=== PATIENT | male | born 1985 | race Caucasian/White ===

== ENCOUNTER 2020-01-01 15:37 | Emergency (ER) | payer SELFPAY ==
[2020-01-01 15:44] VITALS: BP 128/85; PULSE 90; RESP 18; TEMP 36.8; O2SAT 97; BMI 29.8
--- NOTE | 2020-01-01 15:49 | XR_ITS ---
WS: [id number] EXAM: LEFT SHOULDER: 3 VIEWS DATE OF EXAMINATION: 01/01/2020, 1407 hours COMPARISON: Left shoulder examination from 05/09/2016 HISTORY: 34 years old with shoulder pain. FINDINGS: The glenohumeral and AC joint are both normal in appearance. No fracture, lytic or blastic process se en. No soft tissue abnormality noted. Left subclavian double lead pacer noted. XR/XR shoulder LT min 2V* [id number] IMPRESSION: No acute abnormality.
--- NOTE | 2020-01-01 16:06 | W.ED.EXTPRO ---
HPI - Extremity Problem General: Chief complaint: Extremity Problem,Nontraumatic Stated complaint: left shoulder/arm pain Time Seen by Provider: 01/01/20 15:48 History of Present Illness: HPI Narrative: 34-year-old male presents emergency room clinic right shoulder pain that began suddenly while he was driving felt a popping sensation he has previously had several surgeries to that shoulder including labral revision. No distinctive trauma or event recently. No falls. This occurred while he was driving not doing any heavy lifting. MD Complaint: joint pain Onset (ago): minute(s) Pain Consistency: constant Location: left and upper extremity Quality: aching and sharp Radiation: distal Relieving factors: nothing Exacerbating factors: nothing Associated symptoms: Reports arthralgias; Deny chest pain, fever(s), myalgias, rash or short of breath Context: immobilization, recent surgery/procedure, history of DVT, history of peripheral vascular disease, recent illness and history of gout Review of Systems Const: Denies: fever(s) ENMT: Denies: throat pain, ear or mastoid pain, nasal discharge or nasal congestion Card: Denies: chest pain Resp: Denies: dyspnea, productive cough or non-productive cough GI: Denies: abdominal pain, nausea, vomiting, hematemesis, coffee ground emesis, diarrhea, constipation, bloating, hematochezia or melena : Denies: flank pain, dysuria, urinary frequency or urinary urgency Skin/Breast: Denies: rash PFSH ED PFSH: Medical History (Updated 01/01/20 @ 16:33 by Fermín Betancourt DO) Chronic left shoulder pain Physical Exam Const: COMMON NORMALS: no acute distress GENERAL APPEARANCE: cooperative and comfortable ORIENTATION/CONSCIOUSNESS: Yes awake, Yes oriented to person, Yes oriented to place and Yes oriented to time HENMT: COMMON NORMALS: normocephalic, atraumatic and hearing grossly normal bilaterally HEAD & SCALP: normocephalic and atraumatic Eye: COMMON NORMALS: Equal, round and reactive pupils present, EOMs intact bilaterally, conjunctivae normal and no scleral icterus CONJUNCTIVA: Yes conjunctivae normal PUPIL: Yes Equal, round and reactive pupils present Neck/C-Spine: COMMON NORMALS: no JVD Resp: COMMON NORMALS: normal respiratory effort, No retractions, No use of accessory muscles and clear to auscultation bilaterally AUSCULTATION: clear to auscultation bilaterally Cardio: COMMON NORMALS: no JVD, regular rate, regular rhythm and No murmurs present (Cardio) RATE: regular rate RHYTHM: regular rhythm GI: COMMON NORMALS: Soft to palpation and No hepatosplenomegaly present AUSCULTATION: Yes normoactive bowel sounds PALPATION: Yes Soft to palpation, No Tenderness to palpation present (GI), No Guarding due to palpation present (GI) and Yes No hepatosplenomegaly present Extremity: COMMON NORMALS: normal to inspection, capillary refill normal, no clubbing, cyanosis or edema, no calf tenderness and no pedal edema NARRATIVE EXTREMITY EXAM: Moderate tenderness palpation across the left shoulder no deformity the clavicle there is a pacemaker in the infraclavicular space. Pending x-ray did not attempt any range of motion initially. On exam there is no evidence of dislocation. Neuro: SENSORIUM/ORIENTATION: Yes oriented to person, Yes oriented to place and Yes oriented to time Skin: COMMON NORMALS: no rashes or lesions noted GENERAL SKIN EXAM: no rashes or lesions noted Course Vital Signs: Vital signs: Vital Signs Temperature 98.3 F 01/01/20 15:44 Pulse Rate 90 01/01/20 15:44 Respiratory Rate 18 01/01/20 15:44 Blood Pressure 128/85 01/01/20 15:44 Pulse Oximetry 97 01/01/20 15:44 MDM - Extremity (Nontraumatic) MDM Narrative: Medical decision making narrative: Very unremarkable. Will discharge home with anti-inflammatories follow-up with orthopedics for more definitive imaging and further evaluation. Discharge Plan Discharge Patient Disposition: Home Clinical Impression: Shoulder pain, left Condition: Stable Prescriptions: New diclofenac sodium 75 mg tablet,delayed release (DR/EC) 75 mg PO Q12H PRN (Reason: pain) Qty: 20 RF: 0 Discharge Orders: Discharge Order (Routine); Ordered 01/01/20 Ordered By: Fermín Betancourt Activity Restrictions/Additional Instructions: Limit use of the right shoulder. Case management will call for referral to orthopedics Coding Level of Care Code ED Associate Account Executive for Chg Fwd Exam Comprehensive
[2020-01-01] MEDS: ketorolac 30 mg/mL INJ 60 MG IM (16:47)
--- NOTE | 2020-01-02 09:27 | DCPLANNER ---
advertising operations manager had message to schedule a follow up appointment for patient with ortho. advertising operations manager called the ortho clinic, spoke with Neelima, gave clinic patients information. advertising operations manager was told that patients information would be printed and reviewed. Clinic will call patient with appointment information.
--- NOTE | 2020-01-08 08:16 | DCPLANNER ---
Patient has a follow up appointment scheduled for Monday, January 27, [address] at 8:[address] Ricci. Clinic will call patient with appointment information.
--- NOTE | 2020-02-06 07:59 | DCPLANNER ---
Patient had a follow up appointment scheduled for 01.27.20 with ortho - patient did attend appointment.
== END 2020-01-01 17:24 | disposition home or self-care (01) ==
PROVIDERS: Emergency Provider Family Medicine
DX: M25.512 Pain in left shoulder (principal)
CPT/HCPCS: 12345; 73030; 96372; 99282; 99283; J1885

== ENCOUNTER 2020-01-24 20:11 | Emergency (ER) | payer SELFPAY ==
[2020-01-24 20:16] VITALS: BP 131/94; PULSE 103; RESP 17; TEMP 36.7; O2SAT 98; BMI 28.7
--- NOTE | 2020-01-24 20:29 | CTR_ITS ---
PROCEDURE INFORMATION: Exam: CT Head Without Contrast Exam date and time: 01/24/2020 8:30 PM Age: 34 years old Clinical indication: Speech disturbance and weakness, facial; Patient HX: Slurred speech, lt sided weakness; Additional info: Symptoms of acute stroke TECHNIQUE: Imaging protocol: Computed tomography of the head without contrast. Radiation optimization: All CT scans at this facility use at least one of these dose optimization techniques: automated exposure control; mA and/or kV adjustment per patient size (includes targeted exams where dose is matched to clinical indication); or iterative reconstruction. Other contrast: none; COMPARISON: CT head wo con* [id number] 11/14/2016 11:30 PM RADIATION DOSE METRICS: Total DLP (mGy-cm): 880.11 FINDINGS: Brain: Normal. No hemorrhage or CT evidence of acute infarction is seen. No mass effect. Cerebral ventricles: No ventriculomegaly. Bones/joints: Unremarkable. No acute fracture. Paranasal sinuses: Visualized sinuses are unremarkable. No fluid levels. Mastoid air cells: Visualized mastoid air cells are well aerated. Soft tissues: Unremarkable. CT/CT head wo con* [id number] IMPRESSION: No acute intracranial abnormality. Radiation Dose CTDIVOL = (mGy): DLP = 880.11 (mGy-cm)
--- NOTE | 2020-01-24 20:29 | ECG_ITS ---
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 Measurements Intervals [place] Rate: 87 P: 58 FL: 163 QRS: 66 QRSD: 84 T: 56 QT: 361 QTc: 435 Interpretive Statements SINUS RHYTHM Compared to ECG 11/14/2016 23:00:08 Atrial-paced complex(es) or rhythm no longer present Electronically Signed On 01-26-2020 18:21:49 CDT by Jane Crook M.D. [email or web address] [id number]
--- NOTE | 2020-01-24 20:29 | XRR_ITS ---
PROCEDURE INFORMATION: Exam: XR Chest, 1 View Exam date and time: 01/24/2020 8:55 PM Age: 34 years old Clinical indication: Prior surgery; Surgery date: 6+ months; Surgery type: Pacemaker; Patient HX: No chest complaints, weakness; Additional info: Stroke TECHNIQUE: Imaging protocol: XR of the chest Views: 1 view. COMPARISON: No relevant prior studies available. FINDINGS: Lungs: An azygos fissure is seen in the right lung apex. The lungs are clear. Pleural space: Unremarkable. No pleural effusion. No pneumothorax. Heart/Mediastinum: A pacemaker is present in the left anterior chest wall with its leads projecting in the regions of the right atrium and ventricle. Bones/joints: Unremarkable. XR/XR chest 1V portable [id number] IMPRESSION: No acute cardiopulmonary abnormality.
--- NOTE | 2020-01-24 20:29 | CTR_ITS ---
PROCEDURE INFORMATION: Exam: CT Angiography Head With Contrast Exam date and time: 01/24/2020 8:30 PM Age: 34 years old Clinical indication: Speech disturbance and weakness; Slurred speech; Additional info: Stroke TECHNIQUE: Imaging protocol: Computed tomography angiography of the head with intravenous contrast. 3D rendering (Not supervised by radiologist): MIP and/or 3D reconstructed images were created by the technologist. Radiation optimization: All CT scans at this facility use at least one of these dose optimization techniques: automated exposure control; mA and/or kV adjustment per patient size (includes targeted exams where dose is matched to clinical indication); or iterative reconstruction. Contrast material: OMNI 350; Contrast volume: 95 ml; Contrast route: INTRAVENOUS (IV); COMPARISON: CT head wo con* [id number] 01/24/2020 8:35 PM RADIATION DOSE METRICS: Total DLP (mGy-cm): 2235.97 FINDINGS: ANTERIOR CIRCULATION: Right internal carotid artery: Unremarkable. Intracranial segment is patent with no significant stenosis. No aneurysm. Right middle cerebral artery: Unremarkable. No occlusion or significant stenosis. No aneurysm. Right anterior cerebral artery: Unremarkable. No occlusion or significant stenosis. No aneurysm. Left internal carotid artery: Unremarkable. Intracranial segment is patent with no significant stenosis. No aneurysm. Left middle cerebral artery: Unremarkable. No occlusion or significant stenosis. No aneurysm. Left anterior cerebral artery: Unremarkable. No occlusion or significant stenosis. No aneurysm. POSTERIOR CIRCULATION: Right vertebral artery: Unremarkable. No occlusion or significant stenosis. No aneurysm. Left vertebral artery: Unremarkable. No occlusion or significant stenosis. No aneurysm. Basilar artery: Unremarkable. No occlusion or significant stenosis. No aneurysm. Right posterior cerebral artery: Unremarkable. No occlusion or significant stenosis. No aneurysm. Left posterior cerebral artery: Unremarkable. No occlusion or significant stenosis. No aneurysm. Brain: No mass, hemorrhage or CT evidence of acute infarction is seen. IMPRESSION: Patent intracranial arteries. PROCEDURE INFORMATION: Exam: CT Angiography Neck With Contrast Exam date and time: 01/24/2020 8:30 PM Age: 34 years old Clinical indication: Speech disturbance and weakness; Slurred speech; Additional info: Stroke TECHNIQUE: Imaging protocol: Computed tomography angiography of the neck with intravenous contrast. 3D rendering (Not supervised by radiologist): MIP and/or 3D reconstructed images were created by the technologist. Radiation optimization: All CT scans at this facility use at least one of these dose optimization techniques: automated exposure control; mA and/or kV adjustment per patient size (includes targeted exams where dose is matched to clinical indication); or iterative reconstruction. Contrast material: OMNI 350; Contrast volume: 95 ml; Contrast route: INTRAVENOUS (IV); COMPARISON: none available. RADIATION DOSE METRICS: Total DLP (mGy-cm): 2235.97 FINDINGS: Right common carotid artery: No stenosis. No dissection or occlusion. Right internal carotid artery: No stenosis of the extracranial segment. No dissection or occlusion. Right external carotid artery: No occlusion or stenosis of the origin. Right vertebral artery: No stenosis. No dissection or occlusion. Left common carotid artery: No stenosis. No dissection or occlusion. Left internal carotid artery: No stenosis of the extracranial segment. No dissection or occlusion. Left external carotid artery: No occlusion or stenosis of the origin. Left vertebral artery: No stenosis. No dissection or occlusion. CT/CT angio headneck* [id number] IMPRESSION: Patent neck carotid and vertebral arteries. Radiation Dose CTDIVOL = (mGy): DLP = 2235.97~2235.97 (mGy-cm)
--- NOTE | 2020-01-24 20:33 | W.ED.NEUROSD ---
HPI - Neuro Symptoms/Deficit General: Chief Complaint: Neuro Symptoms/Deficit Stated Complaint: POSS STROKE - STROKE HX Time Seen by Provider: 01/24/20 20:25 Source: patient and family Limitations: no limitations History of Present Illness: HPI Narrative: Chidi is a nice 34-year-old male who comes in stating that he came home from work feeling normal. He states that he got up to go to the bathroom and then does not remember what happened in the bathroom. His states when he got home at 730 he was in his normal state of health and acted normally. At 745 when she found him in the bathroom he was slumped over against the wall unresponsive and diaphoretic. She was able to arouse him and found his left side to be weak and his speech to be slurred. Because of this she presented here to the ER as the patient has had a stroke in the past according to them. Associated symptoms: Deny chest pain, diaphoresis, malaise, nausea, syncope or vomiting Review of Systems Const: Denies: fever(s), chills, body aches, fatigue, malaise or diaphoresis Eyes: Denies: change in vision, blurry vision, photophobia, eye discomfort, eye discharge, eye redness or yellow eyes ENMT: Denies: throat pain, odynophagia, hoarseness, swelling of lips/tongue, ear or mastoid pain, ear discharge, change in hearing or nasal discharge Card: Denies: chest pain, palpitations, irregular heart rhythm, edema, lightheadedness, syncope, pre-syncope, dyspnea on exertion or orthopnea Resp: Denies: dyspnea, productive cough, non-productive cough, wheezing, hemoptysis or chest congestion GI: Denies: abdominal pain, nausea, vomiting, hematemesis, coffee ground emesis, heartburn, diarrhea, constipation, GI cramping, hematochezia or melena : Denies: flank pain, dysuria, urinary frequency, urinary urgency or hematuria Musc: Denies: neck pain, back pain, extremity pain, extremity swelling, joint pain, joint swelling, joint redness, joint warmth or joint stiffness Skin/Breast: Denies: rash, pruritus, erythema, skin pain or skin tenderness Neuro: Reports: other (See HPI) Rodriguez/Lymph: Denies: easy bruising, easy bleeding, petechiae, purpura or enlarged lymph nodes All/Imm: Denies: urticaria, throat swelling, tongue swelling, facial swelling or acute wheezing PFSH ED PFSH: Medical History (Updated 01/24/20 @ 22:29 by Marianne Isaac) Chronic left shoulder pain NIH stroke score NIHSS: Level Of Consciousness - 1a: 0 Level Of Consciousness Questions - 1b: Both Correct Level Of Consciousness Commands - 1c: Both Correct Best Gaze - 2: Normal Visual Cheung - 3: No Visual Loss Facial Palsy - 4: Partial Paralysis Motor Arm Right - 5: No Drift Motor Arm Left - 5: Drift Motor Leg Right - 6: No Drift Motor Leg Left - 6: Effort Against Denio Limb Ataxia - 7: Absent Sensory - 8: Mild To Moderate Loss Best Language - 9: No Aphasia Dysarthia - 10: Mild/Moderate Dysarthia Extinction And Inattention - 11: 0 Score: Total Score: 7 Physical Exam Const: COMMON NORMALS: no acute distress, patient oriented x3, no limitations and alert GENERAL APPEARANCE: cooperative HENMT: COMMON NORMALS: normocephalic, atraumatic, external ears normal, EAC's normal and Normal external nose present HEAD & SCALP: normal to inspection, normocephalic and atraumatic FACE & SINUS: normal facial exam and face symmetric NOSE: Normal external nose present and Normal nares present EXTERNAL EAR: Yes external ears normal EXTERNAL AUDITORY CANAL: EAC's normal MOUTH: Normal oral and palatal mucosa present, lip normal and tongue normal Eye: COMMON NORMALS: Equal, round and reactive pupils present and conjunctivae normal GENERAL EYE: appearance normal, both eyes and all related structures ALIGNMENT: Yes alignment normal PERIORBITAL: periorbital findings normal EYELID: eyelids normal CONJUNCTIVA: Yes conjunctivae normal SCLERA: sclerae normal PUPIL: Yes Equal, round and reactive pupils present Neck/C-Spine: COMMON NORMALS: full ROM, no lymphadenopathy, supple, no meningeal signs and no JVD GENERAL: Yes normal visual inspection and Yes trachea midline Chest: COMMONS NORMALS: normal inspection of the chest and normal palpation of entire chest wall Resp: COMMON NORMALS: normal respiratory effort, No retractions, No use of accessory muscles and clear to auscultation bilaterally EFFORT & INSPECTION: Yes able to speak in complete sentences and Yes symmetric chest movement AUSCULTATION: clear to auscultation bilaterally, no crackles, no rales, no rhonchi and no wheezes Cardio: COMMON NORMALS: no JVD, regular rate, regular rhythm, S1 normal heart sound present and S2 normal heart sound present RATE: regular rate RHYTHM: regular rhythm HEART SOUNDS: S1 normal heart sound present, S2 normal heart sound present, no click, no gallops, no murmurs and no rubs GI: COMMON NORMALS: Soft to palpation and No hepatosplenomegaly present PALPATION: Yes Soft to palpation, No Tenderness to palpation present (GI), No Guarding due to palpation present (GI), No Rigid due to palpation, Yes No hepatosplenomegaly present, No Hernia present, No Palpable mass present and No Pulsatile mass present : COMMON NORMALS: Yes no CVA tenderness BLADDER/KIDNEY EXAM: Yes no CVA tenderness Back/Pelvis: COMMON NORMALS: no CVA tenderness, thoracic and lumbar spine normal to inspection, no thoracic nor lumbar tenderness and thoraco-lumbar ROM normal Extremity: COMMON NORMALS: normal to inspection, full ROM, capillary refill normal, no joint enlargement, no clubbing, cyanosis or edema and no calf tenderness Neuro: CARRI COMA SCALE: document GCS findings Carri coma scale eye opening: Spontaneous [place] coma scale verbal response: Orientated [place] coma scale motor response: Obey commands [place] coma scale total score: 15 COMMON NORMALS: patient oriented x3 SENSORIUM/ORIENTATION: Yes alert MENINGEAL SIGNS: Yes no meningeal signs Psych: COMMON NORMALS: mental status grossly normal, Normal thought process present, cooperative, normal affect, speech normal and activity/motor behavior normal SPEECH: Yes normal speech THOUGHT PROCESS: Normal thought process present Skin: COMMON NORMALS: no rashes or lesions noted, turgor normal, no jaundice, no petechiae and no mottling GENERAL SKIN EXAM: no rashes or lesions noted and turgor normal Course ED course: 2044 -Case reviewed by phone with Dr. Anderson. He is going to try to get on the tele-neurology system to evaluate the patient but he is currently having difficulty. He states he will contact me when available. 2112 -case again reviewed with Dr. Anderson, he sees no sign of acute hemorrhage or on the CTA a sign of a embolic interventional clot. He is unable to do a tele-neurology consult over the iPad due to technical difficulties on their side of the system. He states of radiology officially reads noncontrast as normal then TPA can be administered. He agrees accept the patient in transfer for post TPA care. 2129 -the patient has made a market improvement of the symptoms. A repeat NIH stroke scale performed by me is 0. I contacted Dr. Anderson who agrees to withhold TPA and states the patient can be admitted here for TIA work-up. I have presented the patient with this option but now he states he wants to go home. He is adamant that he wants to leave. I have been warned him about the possibility of a stuttering stroke and that if his symptoms return he can be watched here in the hospital and received TPA but he refuses. Patient is set on going home despite my warnings and is refusing to stay. Patient has the capacity to make this decision and shows no sign of impairment. The patient was warned but he was welcomed to return. Vital Signs: Vital signs: Vital Signs Temperature 98.0 F 01/24/20 20:16 Pulse Rate 77 01/24/20 22:30 Respiratory Rate 17 01/24/20 22:30 Blood Pressure 118/75 01/24/20 22:30 Pulse Oximetry 98 01/24/20 22:30 MDM - Neuro Symptoms/Deficit MDM Narrative: Medical decision making narrative: Patient came in with strokelike symptoms but resolved prior to TPA administration. A note from [address] Good for the stroke the patient state he had previously technically diagnosed as conversion disorder. I still wanted to treat the patient as a real TIA and offered and recommended him in the hospital but he refused. Patient was placed on aspirin. He did understand he was welcome to return. Lab Data: Labs: Lab Results 01/24/20 01/24/20 01/24/20 Range/Units 20:38 20:38 20:38 WBC 10.5 H (4.0-10.0) 10^3/ uL RBC 5.35 H (4.1-5.3) 10^6/u L Hgb 16.0 (11.7-16.6) g/dL Hct 47.1 (42.0-52.0) % MCV 88.0 (80-94) fL MCH 29.9 (28.0-34.0) pg MCHC 34.0 (30.0-36.0) g/dL RDW 12.2 (12.1-15.1) % Plt Count 271 (130-400) 10^3/c mm MPV 10.4 (7.4-10.4) fL Neut % (Auto) 57.6 % Lymph % (Auto) 32.2 % Clarke % (Auto) 7.6 % Eos % (Auto) 2.1 % Baso % (Auto) 0.4 % Neut # (Auto) 6.03 (1.8-7.7) 10^3/u L Lymph # (Auto) 3.4 (0.8-4.8) 10^3/u L Clarke # (Auto) 0.8 (0.2-0.9) 10^3/u L Eos # (Auto) 0.2 (0.0-0.8) 10^3/u L Baso # (Auto) 0.0 (0.0-0.1) 10^3/u L Nucleated RBC % (a uto) 0 % Nucleated RBCs # 0.0 /100WBC PT 13.60 (12.1-14.9) SECO NDS INR 1.01 (0.8-1.2) APTT 28.3 (23.9-36.7) SECO NDS Sodium 138 (136-145) mmol/L Potassium 3.8 (3.5-5.1) mmol/L Chloride 102 (98-107) mmol/L Carbon Dioxide 24 (22-29) mmol/L Anion Gap 15.8 (5-19) BUN 12 (6-20) mg/dL Creatinine 1.2 (0.7-1.2) mg/dL GFR Calculation 70.2 L (90-130) mL/min Glucose 96 (65-115) mg/dL POC Glucose (70-110) mg/dL Calculated Osmolal ity 286 (285-295) mOsm/k g Calcium 9.5 (8.5-10.5) mg/dL Total Bilirubin 0.2 (0.15-1.2) mg/dL AST 17 (0-40) U/L ALT 29 (0-41) U/L Alkaline Phosphata se 80 (40-130) IU/L Total Protein 7.6 (6.6-8.7) g/dL Albumin 4.3 (3.5-5.2) g/dL Globulin 3.3 (1.3-4.6) g/dL SARS-CoV-2 Ag (Rap id) (Negative) 01/24/20 01/24/20 Range/Units 20:42 21:18 WBC (4.0-10.0) 10^3/ uL RBC (4.1-5.3) 10^6/u L Hgb (11.7-16.6) g/dL Hct (42.0-52.0) % MCV (80-94) fL MCH (28.0-34.0) pg MCHC (30.0-36.0) g/dL RDW (12.1-15.1) % Plt Count (130-400) 10^3/c mm MPV (7.4-10.4) fL Neut % (Auto) % Lymph % (Auto) % Clarke % (Auto) % Eos % (Auto) % Baso % (Auto) % Neut # (Auto) (1.8-7.7) 10^3/u L Lymph # (Auto) (0.8-4.8) 10^3/u L Clarke # (Auto) (0.2-0.9) 10^3/u L Eos # (Auto) (0.0-0.8) 10^3/u L Baso # (Auto) (0.0-0.1) 10^3/u L Nucleated RBC % (a uto) % Nucleated RBCs # /100WBC PT (12.1-14.9) SECO NDS INR (0.8-1.2) APTT (23.9-36.7) SECO NDS Sodium (136-145) mmol/L Potassium (3.5-5.1) mmol/L Chloride (98-107) mmol/L Carbon Dioxide (22-29) mmol/L Anion Gap (5-19) BUN (6-20) mg/dL Creatinine (0.7-1.2) mg/dL GFR Calculation (90-130) mL/min Glucose (65-115) mg/dL POC Glucose 99 (70-110) mg/dL Calculated Osmolal ity (285-295) mOsm/k g Calcium (8.5-10.5) mg/dL Total Bilirubin (0.15-1.2) mg/dL AST (0-40) U/L ALT (0-41) U/L Alkaline Phosphata se (40-130) IU/L Total Protein (6.6-8.7) g/dL Albumin (3.5-5.2) g/dL Globulin (1.3-4.6) g/dL SARS-CoV-2 Ag (Rap id) Negative (Negative) Imaging Data^: CT Head: Radiologist's impression: [address] [address] [address] Scan Report Signed Patient: Adrián Nick Unit #: [id number] : 1985 Age/Sex: 34 / M ADM Date: 01/24/20 Loc: ER Room/Bed: Attending Dr: Ordering Provider/Ordering MD: Galilea Win MD Date of Service: 01/24/20 Procedure(s): CT head wo con* [id number] Accession Number(s): [id number] Report Number: [id number] PROCEDURE INFORMATION: Exam: CT Head Without Contrast Exam date and time: 01/24/2020 8:30 PM Age: 34 years old Clinical indication: Speech disturbance and weakness, facial; Patient HX: Slurred speech, lt sided weakness; Additional info: Symptoms of acute stroke TECHNIQUE: Imaging protocol: Computed tomography of the head without contrast. Radiation optimization: All CT scans at this facility use at least one of these dose optimization techniques: automated exposure control; mA and/or kV adjustment per patient size (includes targeted exams where dose is matched to clinical indication); or iterative reconstruction. Other contrast: none; COMPARISON: CT head wo con* [id number] 11/14/2016 11:30 PM RADIATION DOSE METRICS: Total DLP (mGy-cm): 880.11 FINDINGS: Brain: Normal. No hemorrhage or CT evidence of acute infarction is seen. No mass effect. Cerebral ventricles: No ventriculomegaly. Bones/joints: Unremarkable. No acute fracture. Paranasal sinuses: Visualized sinuses are unremarkable. No fluid levels. Mastoid air cells: Visualized mastoid air cells are well aerated. Soft tissues: Unremarkable. CT/CT head wo con* [id number] IMPRESSION: No acute intracranial abnormality. Radiation Dose CTDIVOL = (mGy): DLP = 880.11 (mGy-cm) Dictated By: Ha Santamaria MD Signed By: Ha Santamaria MD Signed Date/Time: 01/24/202119 DD/ 17 CTA Head and Neck: Radiologist's impression: [facility] [address] [place] [address] CT Scan Report Signed Patient: Adrián Nick Unit #: [id number] : 1985 Age/Sex: 34 / M ADM Date: 01/24/20 Loc: ER Room/Bed: Attending Dr: Ordering Provider/Ordering MD: Galilea Win MD Date of Service: 01/24/20 Procedure(s): CT angio headneck* [id number] Accession Number(s): [id number] Report Number: [id number] PROCEDURE INFORMATION: Exam: CT Angiography Head With Contrast Exam date and time: 01/24/2020 8:30 PM Age: 34 years old Clinical indication: Speech disturbance and weakness; Slurred speech; Additional info: Stroke TECHNIQUE: Imaging protocol: Computed tomography angiography of the head with intravenous contrast. 3D rendering (Not supervised by radiologist): MIP and/or 3D reconstructed images were created by the technologist. Radiation optimization: All CT scans at this facility use at least one of these dose optimization techniques: automated exposure control; mA and/or kV adjustment per patient size (includes targeted exams where dose is matched to clinical indication); or iterative reconstruction. Contrast material: OMNI 350; Contrast volume: 95 ml; Contrast route: INTRAVENOUS (IV); COMPARISON: CT head wo con* [id number] 01/24/2020 8:35 PM RADIATION DOSE METRICS: Total DLP (mGy-cm): 2235.97 FINDINGS: ANTERIOR CIRCULATION: Right internal carotid artery: Unremarkable. Intracranial segment is patent with no significant stenosis. No aneurysm. Right middle cerebral artery: Unremarkable. No occlusion or significant stenosis. No aneurysm. Right anterior cerebral artery: Unremarkable. No occlusion or significant stenosis. No aneurysm. Left internal carotid artery: Unremarkable. Intracranial segment is patent with no significant stenosis. No aneurysm. Left middle cerebral artery: Unremarkable. No occlusion or significant stenosis. No aneurysm. Left anterior cerebral artery: Unremarkable. No occlusion or significant stenosis. No aneurysm. POSTERIOR CIRCULATION: Right vertebral artery: Unremarkable. No occlusion or significant stenosis. No aneurysm. Left vertebral artery: Unremarkable. No occlusion or significant stenosis. No aneurysm. Basilar artery: Unremarkable. No occlusion or significant stenosis. No aneurysm. Right posterior cerebral artery: Unremarkable. No occlusion or significant stenosis. No aneurysm. Left posterior cerebral artery: Unremarkable. No occlusion or significant stenosis. No aneurysm. Brain: No mass, hemorrhage or CT evidence of acute infarction is seen. IMPRESSION: Patent intracranial arteries. PROCEDURE INFORMATION: Exam: CT Angiography Neck With Contrast Exam date and time: 01/24/2020 8:30 PM Age: 34 years old Clinical indication: Speech disturbance and weakness; Slurred speech; Additional info: Stroke TECHNIQUE: Imaging protocol: Computed tomography angiography of the neck with intravenous contrast. 3D rendering (Not supervised by radiologist): MIP and/or 3D reconstructed images were created by the technologist. Radiation optimization: All CT scans at this facility use at least one of these dose optimization techniques: automated exposure control; mA and/or kV adjustment per patient size (includes targeted exams where dose is matched to clinical indication); or iterative reconstruction. Contrast material: OMNI 350; Contrast volume: 95 ml; Contrast route: INTRAVENOUS (IV); COMPARISON: none available. RADIATION DOSE METRICS: Total DLP (mGy-cm): 2235.97 FINDINGS: Right common carotid artery: No stenosis. No dissection or occlusion. Right internal carotid artery: No stenosis of the extracranial segment. No dissection or occlusion. Right external carotid artery: No occlusion or stenosis of the origin. Right vertebral artery: No stenosis. No dissection or occlusion. Left common carotid artery: No stenosis. No dissection or occlusion. Left internal carotid artery: No stenosis of the extracranial segment. No dissection or occlusion. Left external carotid artery: No occlusion or stenosis of the origin. Left vertebral artery: No stenosis. No dissection or occlusion. CT/CT angio headneck* [id number] IMPRESSION: Patent neck carotid and vertebral arteries. Radiation Dose CTDIVOL = (mGy): DLP = 2235.97 2235.97 (mGy-cm) Dictated By: Ha Santamaria MD Signed By: Ha Santamaria MD Signed Date/Time: 01/24/202123 DD/ 21 EKG Data^: EKG 1: Attestation: I personally reviewed and interpreted this EKG as follows: EKG interpretation date: 01/24/20 EKG interpretation time: 21:15 Interpretation: Normal sinus rhythm at 89 beats a minute, no acute ST or T wave changes. Critical Care Time Critical Care Time: Critical Care Time: Yes Total Critical Care Time: 30 Attestation: Critical care time consisted of one-on-one care for stroke evaluation. Critical care time consisted of reviewing radiologic studies by myself, review of laboratory studies, consultation with specialist by phone and arranging for possible transport. Discharge Plan Discharge Patient Disposition: Left Against Medical Advice Clinical Impression: Transient cerebral ischemia Qualifiers: Transient cerebral ischemia type: unspecified Qualified Code(s): G45.9 - Transient cerebral ischemic attack, unspecified Condition: Stable Prescriptions: [place] Aspirin 325 mg tablet 325 mg PO DAILY Qty: 30 RF: 0 No Action diclofenac sodium 75 mg tablet,delayed release (DR/EC) 75 mg PO Q12H PRN (Reason: pain) Qty: 20 RF: 0 Discharge Orders: Discharge Order (Routine); Ordered 01/24/20 Ordered By: Marianne Isaac Referrals: Angie Upton MD [Physician] - 1-3 days Discharge Diet: Advance as tolerated Discharge Activity: Increase activity as tolerated Patient Instructions: Transient Ischemic Attack (ED) Activity Restrictions/Additional Instructions: You're leaving AGAINST MEDICAL ADVICE and are at risk for or severe permanent disability by doing so. You are more than welcome to return at any time for recheck and for further evaluation and care suture change you change your mind. Be certain to follow-up with Dr. Upton as soon as possible. Take a 325 mg aspirin daily. You are more than welcome to return to the ER if your symptoms return or you change your mind. Stand Alone Forms: Against Medical Advice Discharge Date/Time: 01/24/20 22:45 Coding Level of Care Code ED Aircraft Communicator for Chg Fwd Exam Comprehensive
[2020-01-24 20:45] LABS: Glucose Point of Care 99 mg/dL (70-110)
[2020-01-24 20:55] LABS: Basophils % 0.4 %; Eosinophils # 0.2 10^3/uL (0.0-0.8); Eosinophils % 2.1 %; Hematocrit 47.1 % (42.0-52.0); Lymphocytes # 3.4 10^3/uL (0.8-4.8); Lymphocytes % 32.2 %; Mean Corpuscular Hemoglobin 29.9 pg (28.0-34.0); Mean Platelet Volume 10.4 fL (7.4-10.4); Monocytes # 0.8 10^3/uL (0.2-0.9); Monocytes % 7.6 %; Neutrophils # 6.03 10^3/uL (1.8-7.7); Neutrophils % 57.6 %; Nucleated Red Blood Cells % 0 %; Platelet Count 271 10^3/cmm (130-400); Red Blood Count 5.35 10^6/uL (4.1-5.3); Red Cell Distribution Width 12.2 % (12.1-15.1); White Blood Count 10.5 10^3/uL (4.0-10.0)
[2020-01-24 20:58] LABS: INR 1.01 (0.8-1.2); Partial Thromboplastin Time 28.3 SECONDS (23.9-36.7)
[2020-01-24 21:07] LABS: Alanine Aminotransferase 29 U/L (0-41); Albumin Level 4.3 g/dL (3.5-5.2); Alkaline Phosphatase 80 IU/L (40-130); Aspartate Amino Transferase 17 U/L (0-40); Blood Urea Nitrogen 12 mg/dL (6-20); Calcium 9.5 mg/dL (8.5-10.5); Carbon Dioxide 24 mmol/L (22-29); Chloride 102 mmol/L (98-107); Globulin 3.3 g/dL (1.3-4.6); Glomerular Filtration Rate 70.2 mL/min (90-130); Glucose 96 mg/dL (65-115); Osmolality Calculated 286 mOsm/kg (285-295); Sodium 138 mmol/L (136-145); Total Bilirubin 0.2 mg/dL (0.15-1.2); Total Protein 7.6 g/dL (6.6-8.7)
[2020-01-24 21:09] LABS: Anion Gap 15.8 (5-19); Potassium 3.8 mmol/L (3.5-5.1)
[2020-01-24 21:15] VITALS: BP 117/82; PULSE 92; RESP 18; O2SAT 96
--- NOTE | 2020-01-24 21:15 | ECG_ITS ---
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 Measurements Intervals [place] Rate: 89 P: 51 WV: 154 QRS: 64 QRSD: 79 T: 54 QT: 345 QTc: 422 Interpretive Statements SINUS RHYTHM Compared to ECG 01/24/2020 21:03:12 No significant changes Electronically Signed On 01-25-2020 18:11:39 CDT by Jane Crook M.D. [id number]
[2020-01-24 21:30] VITALS: BP 136/96; PULSE 90; RESP 27; O2SAT 99
[2020-01-24 21:39] LABS: SARS Covid-2 Antigen Negative (Negative)
[2020-01-24 21:48] VITALS: BP 127/82; PULSE 83; RESP 17; O2SAT 98
[2020-01-24 22:30] VITALS: BP 118/75; PULSE 77; RESP 17; O2SAT 98
== END 2020-01-24 22:45 | disposition left against medical advice (07) ==
PROVIDERS: Emergency Medicine; Emergency Provider Emergency Medicine
DX: G45.9 Transient cerebral ischemic attack, unspecified (principal); Z53.21 Procedure and treatment not carried out due to patient leaving prior to being seen by health care provider
CPT/HCPCS: 12345; 36416; 70450; 70496; 70498; 71045; 80053; 82962; 85025; 85610; 85730; 87426; 93005; 96374; 99283; 99284; Q9967

== ENCOUNTER → 2020-01-27 08:52 | Outpatient (BNVA) | payer SELFPAY | PROVIDERS: Referring Provider Family Medicine; Visit Provider Specialist | DX: M19.012 Primary osteoarthritis, left shoulder (principal); M25.512 Pain in left shoulder | CPT/HCPCS: 73030 ==

== ENCOUNTER → 2020-02-10 10:44 | Outpatient (BNVA) | payer SELFPAY | PROVIDERS: Visit Provider Nurse Practitioner | DX: R56.9 Unspecified convulsions (principal); F17.210 Nicotine dependence, cigarettes, uncomplicated | CPT/HCPCS: 99204 ==

== ENCOUNTER → 2020-02-25 07:54 | Outpatient (BNVA) | payer SELFPAY | PROVIDERS: Referring Provider Nurse Practitioner; Visit Provider Specialist | DX: R56.9 Unspecified convulsions (principal) | CPT/HCPCS: 95816 ==

== ENCOUNTER 2020-03-13 18:45 | Emergency (ER) | payer SELFPAY ==
[2020-03-13 18:47] VITALS: BP 122/84; PULSE 80; RESP 18; TEMP 36.5; O2SAT 99; BMI 32.0
[2020-03-13 18:53] VITALS: BP 122/84; PULSE 83; RESP 18; O2SAT 100
--- NOTE | 2020-03-13 19:00 | W.ED.BACK ---
HPI - Back Pain/Injury General: Chief Complaint: Back Pain/Injury Stated Complaint: severe back pain Time Seen by Provider: 03/13/20 18:51 Source: patient Mode of arrival: ambulatory Limitations: no limitations History of Present Illness: HPI Narrative: Patient comes in today for complaints of mid to low back pain worsening over the last 2 months. Patient does have a chronic history of back pain with bulging disc. Patient has a primary care and sees neurology at times. Patient today was on a road back from [facility] and had worsening discomfort with radiation of pain down the right leg. Patient appears well. Patient appears in no acute distress. Patient does appear in moderate pain. MD elicited complaint: back pain Review of Systems General: Reports: 10 or more systems reviewed and unremarkable except in HPI and below Musc: Reports: back pain PFSH ED PFSH: Medical History (Updated 03/13/20 @ 20:17 by KRYSTYNA Willoughby) Cardiac defibrillator in place Chronic left shoulder pain Pacemaker Seizure Surgical History (Updated 03/10/20 @ 08:00 by Edin Booth MD) Hx of cholecystectomy Hx of shoulder surgery Family History (Updated 03/10/20 @ 07:28 by Gianna Mason LPN) Other CAD (coronary artery disease) COPD (chronic obstructive pulmonary disease) Cancer Diabetes Seizure Stroke Social History (Updated 03/10/20 @ 07:30 by Gianna Mason LPN) Smoking and tobacco status: current every day smoker cigarettes Packs smoked per day: 0.5 Alcohol intake: current Alcohol intake frequency: holidays/special occasions only Household members: spouse and children Marital status: Current occupational status: disabled Physical Exam Const: COMMON NORMALS: no acute distress and patient oriented x3 GENERAL APPEARANCE: cooperative HENMT: COMMON NORMALS: normocephalic and Normal external nose present HEAD & SCALP: normal to inspection and normocephalic NOSE: Normal external nose present MOUTH: Normal oral and palatal mucosa present THROAT: posterior oropharynx normal Eye: GENERAL EYE: appearance normal, both eyes and all related structures Neck/C-Spine: COMMON NORMALS: full ROM Lymph: LYMPHATIC: no lymphadenopathy noted Chest: COMMONS NORMALS: normal inspection of the chest Resp: COMMON NORMALS: normal respiratory effort EFFORT & INSPECTION: Yes able to speak in complete sentences Cardio: COMMON NORMALS: regular rate and regular rhythm RATE: regular rate RHYTHM: regular rhythm GI: COMMON NORMALS: non-tender Back/Pelvis: COMMON NORMALS: thoracic and lumbar spine normal to inspection OTHER: Patient has some tenderness in the vertebral area of the lower thoracic upper lumbar area. No obvious step-off is noted on the exam. Patient has normal leg lift. Extremity: COMMON NORMALS: normal to inspection Neuro: COMMON NORMALS: patient oriented x3 and moves all extremities Psych: COMMON NORMALS: mental status grossly normal and cooperative Skin: COMMON NORMALS: no rashes or lesions noted GENERAL SKIN EXAM: no rashes or lesions noted Course Vital Signs: Vital signs: Vital Signs Temperature 97.7 F 03/13/20 18:47 Pulse Rate 83 03/13/20 18:53 Respiratory Rate 18 03/13/20 18:53 Blood Pressure 122/84 03/13/20 18:53 Pulse Oximetry 100 03/13/20 18:53 MDM - Back Pain/Injury MDM Narrative: Medical decision making narrative: Patient comes in today for complaints of mid to low back pain. Patient reports worsening discomfort for his back for the last 2 months. Patient appears mildly unwell. Patient appears in moderate pain. Respirations were even lungs are clear to auscultation. Skin is warm and dry. Abdomen soft nontender. Leg lift test was negative. Differential diagnosis includes but not limited to intervertebral disc disease, facet arthropathy, muscle strain. CT scan of the thoracic and lumbar area noted some minor disc bulging in the low lumbar area. Remainder of the CT scan noted no significant abnormalities except for some mild degenerative changes. No foraminal stenosis was noted throughout the exam. Reviewed the exam with patient with recommendations for follow-up and treatment. Patient was given 1 hydrocodone tablet in the emergency room with improvement of pain. Patient was recommended to follow-up with primary care for further management and referral as needed. Patient reported understanding agreed to plan. Discharge Plan Discharge Patient Disposition: Home Clinical Impression: Thoracic back pain Qualifiers: Chronicity: unspecified Back pain laterality: right Qualified Code(s): M54.6 - Pain in thoracic spine Condition: Stable Prescriptions: New naproxen 500 mg tablet 500 mg PO BID Qty: 20 RF: 0 tizanidine 4 mg tablet 4 mg PO Q8H PRN (Reason: muscle spasticity) Qty: 20 RF: 0 hydrocodone-acetaminophen 5-325 mg tablet 1 tab PO TID PRN (Reason: breakthrough pain, moderate) Qty: 10 RF: 0 Discharge Orders: Discharge Order (Routine); Ordered 03/13/20 Ordered By: Link Bolden Discharge Diet: Usual diet Discharge Activity: Increase activity as tolerated Patient Instructions: Back Pain (ED) Activity Restrictions/Additional Instructions: Activity as tolerated. Gentle stretching and range of motion exercises. Drink plenty of water with medication. Follow-up with primary care for further evaluation and treatment. Coding Level of Care Code ED Motion Designer for Estephania Fwd Exam Comprehensive
--- NOTE | 2020-03-13 19:07 | CTR_ITS ---
PROCEDURE INFORMATION: Exam: CT Lumbar Spine Without Contrast Exam date and time: 03/13/2020 7:22 PM Age: 34 years old Clinical indication: Patient HX: C/O mid/low back pain x 2 mos denies injury; Additional info: Severe back pain no injury TECHNIQUE: Imaging protocol: Computed tomography images of the lumbar spine without contrast. Radiation optimization: All CT scans at this facility use at least one of these dose optimization techniques: automated exposure control; mA and/or kV adjustment per patient size (includes targeted exams where dose is matched to clinical indication); or iterative reconstruction. COMPARISON: [place] [id number] 06/08/2016 9:36 AM RADIATION DOSE METRICS: Total DLP (mGy-cm): 2013.42 FINDINGS: Vertebrae: The vertebral body alignment and stature is normal. Stable partial sacralization left L5 with pseudoarticulation. Facets are intact. L1-L2: No significant disc protrusion. No severe spinal canal stenosis. No significant neural foraminal narrowing. L2-L3: No significant disc protrusion. No spinal canal stenosis. No neural foraminal narrowing. L3-L4: Minimal circumferential disc bulge. No severe spinal canal stenosis. Mild bilateral neural foraminal narrowing. L4-L5: Minimal circumferential disc bulge. No severe spinal canal stenosis. Mild bilateral neural foraminal narrowing. L5-S1: No significant disc protrusion. Congenitally small disc. No severe spinal canal stenosis. No significant neural foraminal narrowing. Soft tissues: Unremarkable. CT/CT lumbar spine wo con* [id number] IMPRESSION: 1. No acute finding. Radiation Dose CTDIVOL = (mGy): DLP = 2013.42 (mGy-cm)
--- NOTE | 2020-03-13 19:07 | CTR_ITS ---
PROCEDURE INFORMATION: Exam: CT Thoracic Spine Without Contrast Exam date and time: 03/13/2020 7:22 PM Age: 34 years old Clinical indication: Pain in thoracic spine; Without myelpathy or radiculopathy; Patient HX: C/O mid/low back pain x 2 mos denies injury; Additional info: Severe back pain no injury TECHNIQUE: Imaging protocol: Computed tomography images of the thoracic spine without contrast. Radiation optimization: All CT scans at this facility use at least one of these dose optimization techniques: automated exposure control; mA and/or kV adjustment per patient size (includes targeted exams where dose is matched to clinical indication); or iterative reconstruction. COMPARISON: CR Thoracic Spine 3+ views* [id number] 02/19/2014 5:42 PM RADIATION DOSE METRICS: Total DLP (mGy-cm): 2418.42 FINDINGS: Vertebrae: Mild leftward thoracic curvature. Vertebral body stature is maintained. The facets are intact. T1-T2: No significant disc protrusion. No severe spinal canal stenosis. No significant neural foraminal narrowing. T2-T3: No significant disc protrusion. No severe spinal canal stenosis. No significant neural foraminal narrowing. T3-T4: No significant disc protrusion. No severe spinal canal stenosis. No significant neural foraminal narrowing. T4-T5: Mild degenerative endplate changes at T4-5 through T10-11. T5-T6: No significant disc protrusion. No severe spinal canal stenosis. No significant neural foraminal narrowing. T6-T7: No significant disc protrusion. No severe spinal canal stenosis. No significant neural foraminal narrowing. T7-T8: No significant disc protrusion. No severe spinal canal stenosis. No significant neural foraminal narrowing. T8-T9: No significant disc protrusion. No severe spinal canal stenosis. No significant neural foraminal narrowing. T9-T10: No significant disc protrusion. No severe spinal canal stenosis. No significant neural foraminal narrowing. T10-T11: No significant disc protrusion. No severe spinal canal stenosis. No significant neural foraminal narrowing. T11-T12: No significant disc protrusion. No severe spinal canal stenosis. No significant neural foraminal narrowing. T12-L1: No significant disc protrusion. No severe spinal canal stenosis. No significant neural foraminal narrowing. Other findings: Incidental azygos fissure. CT/CT thoracic spin wo con* [id number] IMPRESSION: No acute finding. Radiation Dose CTDIVOL = (mGy): DLP = 2418.42 (mGy-cm)
[2020-03-13] MEDS: HYDROcodone-acetaminophen 10-325 mg Tablet 1 TAB PO (19:19)
[2020-03-13 20:45] VITALS: BP 124/86; PULSE 95; RESP 18; TEMP 36.8; O2SAT 96
[2020-03-13 21:14] VITALS: BP 118/72; PULSE 68; RESP 18; TEMP 36.7; O2SAT 94
== END 2020-03-13 21:26 | disposition home or self-care (01) ==
PROVIDERS: Emergency Provider Nurse Practitioner Family
DX: M54.6 Pain in thoracic spine (principal); Z95.0 Presence of cardiac pacemaker; F17.210 Nicotine dependence, cigarettes, uncomplicated
CPT/HCPCS: 12345; 72128; 72131; 99282; 99283

== ENCOUNTER 2020-04-23 16:10 | Emergency (ER) | payer SELFPAY ==
[2020-04-23 16:14] VITALS: PULSE 90; RESP 18; TEMP 36.8; O2SAT 99; BMI 31.7
--- NOTE | 2020-04-23 17:15 | ECG_ITS ---
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 Measurements Intervals [place] Rate: 71 P: 46 [place]: 147 QRS: 67 QRSD: 92 T: 69 QT: 386 QTc: 421 Interpretive Statements SINUS RHYTHM Compared to ECG 01/24/2020 21:15:24 No significant changes Electronically Signed On 04-23-2020 20:41:11 SUBASSEMBLY SUPERVISOR by Jane Crook M.D. [email or web address].[employer]/store/NU/[id number] f
--- NOTE | 2020-04-23 17:15 | XR_ITS ---
WS: [id number] PORTABLE CHEST HISTORY: Acute onset chest pain. COMPARISON: 01/24/2020 Dual lead LEFT subclavian cardiac pacer remains unchanged in position. Lungs are clear and well expanded. No pleural effusion or pneumothorax. Cardiac size: Normal. Mediastinum/Aorta: Normal mediastinum. No osseous abnormality seen. XR/XR chest 1V portable [id number] IMPRESSION: Unremarkable portable chest.
[2020-04-23 18:18] VITALS: BP 116/77; PULSE 78; RESP 18; O2SAT 97
--- NOTE | 2020-04-23 18:39 | ECG_ITS ---
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 Measurements Intervals [place] Rate: 62 P: 53 [place]: 163 QRS: 60 QRSD: 87 T: 67 QT: 412 QTc: 419 Interpretive Statements ELECTRONIC ATRIAL PACEMAKER ABNORMAL RHYTHM ECG Compared to ECG 04/23/2020 16:21:37 Sinus rhythm no longer present Electronically Signed On 04-24-2020 13:48:52 DIGITAL STRATEGY SPECIALIST by Jane Crook M.D. [email or web address] Hubcla[facility]orne [facility] medical [email or web address] centerONE[facility]/store/NU/[id number] f
--- NOTE | 2020-04-23 18:48 | ED_ITS ---
HPI - Chest Pain General: Chief Complaint: Chest Pain Stated Complaint: high BP Time Seen by Provider: 04/23/20 18:21 History of Present Illness: HPI narrative: The patient is a 34-year-old male with past medical history pacemaker for tachycardia comes to the ER complaining of low blood pressure this morning and high blood pressure later. He said when he had the high blood pressure he had an episode of left-sided chest pain that was concerning to him and came to the ER. He was recently started on metoprolol 12.5 mg twice a day and he said he woke up this morning with a systolic of 91 though he felt fine. He continued to check his blood pressure hourly until later in the afternoon he got a systolic of 140s and had chest pain quick episode with it. In the ER he is free of symptoms and has a normal blood pressure and normal heart rate. complaint: chest pain Prior episodes: No Onset: during rest Pain location: left chest Severity: mild Quality: sharp Relieving factors: nothing Exacerbating factors: nothing Associated symptoms: Reports no associated symptoms; Deny abdominal pain, dyspnea or palpitations Review of Systems General: Reports: 10 or more systems reviewed and unremarkable except in HPI and below Const: Denies: fatigue Eyes: Denies: change in vision, blurry vision or eye redness ENMT: Denies: throat pain, swelling of lips/tongue, ear or mastoid pain or nasal congestion Card: Denies: chest pain, palpitations, irregular heart rhythm, edema, dyspnea on exertion or orthopnea Resp: Denies: dyspnea, productive cough or non-productive cough GI: Denies: abdominal pain, diarrhea or GI cramping : Denies: flank pain, urinary frequency or urinary urgency Musc: Denies: neck pain, back pain, extremity pain, joint pain, joint redness, limited range of motion or muscle weakness Skin/Breast: Denies: rash, pruritus, erythema, skin pain or skin tenderness Neuro: Denies: headache(s), numbness in extremities, weakness in extremities, sensory changes, difficulty walking, dizziness, confusion or Slurred speech present Psych: Denies: anxiety or depression Endo: Denies: polyuria All/Imm: Denies: urticaria, throat swelling or tongue swelling PFS ED PFSH: Medical History (Updated 04/23/20 @ 21:15 by Mark Anthony Reyes MD) Chronic left shoulder pain Obesity (BMI 30.0-34.9) Pacemaker Seizure Surgical History Hx of cholecystectomy Hx of shoulder surgery Family History Other CAD (coronary artery disease) COPD (chronic obstructive pulmonary disease) Cancer Diabetes Seizure Stroke Social History Smoking and tobacco status: current every day smoker cigarettes Packs smoked per day: 0.5 Alcohol intake: current Alcohol intake frequency: holidays/special occasions only Household members: spouse and children Marital status: Current occupational status: disabled Current gender identity: Male Physical Exam 2 Const: COMMON NORMALS: no acute distress, average body habitus, patient oriented x3, no limitations, healthy appearing, alert and well nourished GENERAL APPEARANCE: cooperative, comfortable, well kempt and well developed ORIENTATION/CONSCIOUSNESS: Yes awake, Yes oriented to person, Yes oriented to place and Yes oriented to time HENMT: COMMON NORMALS: normocephalic, external ears normal and Normal external nose present HEAD & SCALP: normal to inspection and normocephalic NOSE: Normal external nose present EXTERNAL EAR: Yes external ears normal MOUTH: Normal oral and palatal mucosa present THROAT: posterior oropharynx normal Eye: COMMON NORMALS: Equal, round and reactive pupils present and EOMs intact bilaterally GENERAL EYE: appearance normal, both eyes and all related structures PUPIL: Yes Equal, round and reactive pupils present Neck/C-Spine: COMMON NORMALS: full ROM, no lymphadenopathy, no meningeal signs and no JVD GENERAL: Yes normal visual inspection Lymph: LYMPHATIC: no lymphadenopathy noted Chest: COMMONS NORMALS: normal inspection of the chest and normal palpation of entire chest wall Resp: COMMON NORMALS: normal respiratory effort, No retractions, No use of accessory muscles, clear to auscultation bilaterally and percussion normal EFFORT & INSPECTION: Yes able to speak in complete sentences AUSCULTATION: clear to auscultation bilaterally PERCUSSION: percussion normal Cardio: COMMON NORMALS: no JVD, regular rate, regular rhythm, S1 normal heart sound present, S2 normal heart sound present and Peripheral pulses 2+ throughout RATE: regular rate RHYTHM: regular rhythm HEART SOUNDS: S1 normal heart sound present and S2 normal heart sound present PERIPHERAL PULSES: Peripheral pulses 2+ throughout GI: COMMON NORMALS: Normal to inspection, nondistended, normoactive bowel sounds present, Soft to palpation, non-tender and no masses INSPECTION: Yes normal to inspection PALPATION: Yes Soft to palpation : COMMON NORMALS: Yes no CVA tenderness BLADDER/KIDNEY EXAM: Yes no CVA tenderness Back/Pelvis: COMMON NORMALS: no CVA tenderness, thoracic and lumbar spine normal to inspection, no thoracic nor lumbar tenderness and thoraco-lumbar ROM normal Extremity: COMMON NORMALS: normal to inspection, full ROM, capillary refill normal, no joint enlargement and no pedal edema GENERAL: Yes normal exam except as noted Neuro: COMMON NORMALS: patient oriented x3, CN's II-XII intact bilaterally, m oves all extremities, no focal motor deficits, no sensory deficits noted and gait normal SENSORIUM/ORIENTATION: Yes alert, Yes oriented to person, Yes oriented to place and Yes oriented to time MENINGEAL SIGNS: Yes no meningeal signs Psych: COMMON NORMALS: mental status grossly normal, Normal thought process present, cooperative, normal affect and speech normal APPEARANCE: Yes well kempt ATTITUDE: Yes calm SPEECH: Yes normal speech THOUGHT PROCESS: Normal thought process present Skin: COMMON NORMALS: no rashes or lesions noted GENERAL SKIN EXAM: no rashes or lesions noted Course Vital Signs: Vital signs: Vital Signs Temperature 98.3 F 04/23/20 16:14 Pulse Rate 66 04/23/20 20:42 Respiratory Rate 15 04/23/20 20:42 Blood Pressure 118/66 04/23/20 20:42 Pulse Oximetry 99 04/23/20 20:42 MDM - Chest Pain MDM Narrative: Medical decision making narrative: The patient came in for a single episode of chest pain of unclear cause. He has a pacemaker which is concerning and he takes metoprolol. He was hypotensive this morning and had a systolic of 140 later in the day and came to the ER for evaluation. Lab testing troponin and EKG are normal. Recommended following up with Dr. Crook tomorrow to discuss the metoprolol dose and return to the ER with worsening symptoms Lab Data: Labs: Lab Results 04/23/20 04/23/20 04/23/20 Range/Units 18:45 18:45 18:45 WBC 7.9 (4.0-10.0) 10^3/ uL RBC 5.01 (4.1-5.3) 10^6/u L Hgb 14.8 (11.7-16.6) g/dL Hct 44.0 (42.0-52.0) % MCV 87.8 (80-94) fL MCH 29.5 (28.0-34.0) pg MCHC 33.6 (30.0-36.0) g/dL RDW 12.5 (12.1-15.1) % Plt Count 240 (130-400) 10^3/c mm MPV 10.3 (7.4-10.4) fL Neut % (Auto) 47.9 % Lymph % (Auto) 41.2 % [place] % (Auto) 7.1 % Eos % (Auto) 3.0 % Baso % (Auto) 0.5 % Neut # (Auto) 3.78 (1.8-7.7) 10^3/u L Lymph # (Auto) 3.3 (0.8-4.8) 10^3/u L [place] # (Auto) 0.6 (0.2-0.9) 10^3/u L Eos # (Auto) 0.2 (0.0-0.8) 10^3/u L Baso # (Auto) 0.0 (0.0-0.1) 10^3/u L Nucleated RBC % (a uto) 0 % Nucleated RBCs # 0.0 /100WBC PT 13.30 (12.1-14.9) SECO NDS INR 0.98 (0.8-1.2) Sodium 139 (136-145) mmol/L Potassium 4.1 (3.5-5.1) mmol/L Chloride 104 (98-107) mmol/L Carbon Dioxide 25 (22-29) mmol/L Anion Gap 14.1 (5-19) BUN 8 (6-20) mg/dL Creatinine 1.0 (0.7-1.2) mg/dL GFR Calculation 86.6 L (90-130) mL/min Glucose 88 (65-115) mg/dL Calculated Osmolal ity 286 (285-295) mOsm/k g Calcium 9.3 (8.5-10.5) mg/dL Total Bilirubin 0.2 (0.15-1.2) mg/dL AST 15 (0-40) U/L ALT 24 (0-41) U/L Alkaline Phosphata se 69 (40-130) IU/L Troponin T Baselin e (0-15) ng/L Troponin T 120 Min [place] (0-15) ng/L Delta Troponin T (0-10) ABS# Total Protein 7.2 (6.6-8.7) g/dL Albumin 4.3 (3.5-5.2) g/dL Globulin 2.9 (1.3-4.6) g/dL 04/23/20 04/23/20 Range/Units 18:45 20:26 WBC (4.0-10.0) 10^3/ uL RBC (4.1-5.3) 10^6/u L Hgb (11.7-16.6) g/dL Hct (42.0-52.0) % MCV (80-94) fL MCH (28.0-34.0) pg MCHC (30.0-36.0) g/dL RDW (12.1-15.1) % Plt Count (130-400) 10^3/c mm MPV (7.4-10.4) fL Neut % (Auto) % Lymph % (Auto) % [place] % (Auto) % Eos % (Auto) % Baso % (Auto) % Neut # (Auto) (1.8-7.7) 10^3/u L Lymph # (Auto) (0.8-4.8) 10^3/u L [place] # (Auto) (0.2-0.9) 10^3/u L Eos # (Auto) (0.0-0.8) 10^3/u L Baso # (Auto) (0.0-0.1) 10^3/u L Nucleated RBC % (a uto) % Nucleated RBCs # /100WBC PT (12.1-14.9) SECO NDS INR (0.8-1.2) Sodium (136-145) mmol/L Potassium (3.5-5.1) mmol/L Chloride (98-107) mmol/L Carbon Dioxide (22-29) mmol/L Anion Gap (5-19) BUN (6-20) mg/dL Creatinine (0.7-1.2) mg/dL GFR Calculation (90-130) mL/min Glucose (65-115) mg/dL Calculated Osmolal ity (285-295) mOsm/k g Calcium (8.5-10.5) mg/dL Total Bilirubin (0.15-1.2) mg/dL AST (0-40) U/L ALT (0-41) U/L Alkaline Phosphata se (40-130) IU/L Troponin T Baselin e 6 (0-15) ng/L Troponin T 120 Min [place] 6.00 (0-15) ng/L Delta Troponin T 0 (0-10) ABS# Total Protein (6.6-8.7) g/dL Albumin (3.5-5.2) g/dL Globulin (1.3-4.6) g/dL Discharge Plan Discharge Patient Disposition: Home Clinical Impression: Atypical chest pain Condition: Stable Prescriptions: No Action metoprolol succinate 25 mg tablet extended release 24 hr 12.5 mg PO DAILY@10 RF: 0 Discharge Orders: Discharge ED (Routine); Ordered 04/23/20 Ordered By: Mark Anthony Reyes Referrals: Edin Booth MD [Primary Care Provider] - Discharge Diet: Advance as tolerated Discharge Activity: Resume usual activity Patient Instructions: Chest Pain (ED) Activity Restrictions/Additional Instructions: You have chest pain of unclear cause. Please follow-up with your imaging science professor tomorrow to discuss the dosing of your metoprolol. Return to the ER with worsening symptoms. Follow-up with your imaging science professor early next week if possible. Coding Level of Care Code ED Administrative Support Clerk for Estephania Fwd Exam Comprehensive
--- NOTE | 2020-04-23 19:01 | PC.NURSE ---
report received from ROSELINE Milligan and care transferred to ROSELINE Haile
[2020-04-23 19:02] LABS: Basophils % 0.5 %; Eosinophils # 0.2 10^3/uL (0.0-0.8); Hemoglobin 14.8 g/dL (11.7-16.6); Lymphocytes # 3.3 10^3/uL (0.8-4.8); Lymphocytes % 41.2 %; Mean Corpuscular HGB Conc 33.6 g/dL (30.0-36.0); Mean Corpuscular Hemoglobin 29.5 pg (28.0-34.0); Mean Corpuscular Volume 87.8 fL (80-94); Mean Platelet Volume 10.3 fL (7.4-10.4); Monocytes # 0.6 10^3/uL (0.2-0.9); Monocytes % 7.1 %; Neutrophils # 3.78 10^3/uL (1.8-7.7); Neutrophils % 47.9 %; Nucleated Red Blood Cells % 0 %; Platelet Count 240 10^3/cmm (130-400); Red Blood Count 5.01 10^6/uL (4.1-5.3); Red Cell Distribution Width 12.5 % (12.1-15.1); White Blood Count 7.9 10^3/uL (4.0-10.0)
[2020-04-23 19:19] LABS: Alanine Aminotransferase 24 U/L (0-41); Albumin Level 4.3 g/dL (3.5-5.2); Alkaline Phosphatase 69 IU/L (40-130); Aspartate Amino Transferase 15 U/L (0-40); Blood Urea Nitrogen 8 mg/dL (6-20); Calcium 9.3 mg/dL (8.5-10.5); Carbon Dioxide 25 mmol/L (22-29); Chloride 104 mmol/L (98-107); Globulin 2.9 g/dL (1.3-4.6); Glomerular Filtration Rate 86.6 mL/min (90-130); Glucose 88 mg/dL (65-115); Osmolality Calculated 286 mOsm/kg (285-295); Sodium 139 mmol/L (136-145); Total Bilirubin 0.2 mg/dL (0.15-1.2); Total Protein 7.2 g/dL (6.6-8.7)
[2020-04-23 19:21] LABS: Troponin(5th) Baseline 6 ng/L (0-15)
[2020-04-23 19:22] LABS: Anion Gap 14.1 (5-19); Potassium 4.1 mmol/L (3.5-5.1)
[2020-04-23 19:27] VITALS: BP 108/78; PULSE 63; RESP 17; O2SAT 98
[2020-04-23 19:39] LABS: INR 0.98 (0.8-1.2)
[2020-04-23 20:42] VITALS: BP 118/66; PULSE 66; RESP 15; O2SAT 99
[2020-04-23 21:11] LABS: Troponin 5 2HR Delta 0 ABS# (0-10)
[2020-04-23 21:22] VITALS: BP 126/76
== END 2020-04-23 21:23 | disposition home or self-care (01) ==
PROVIDERS: Nurse Practitioner Family; Emergency Provider Family Medicine; PCP Family Medicine Adult Medicine
DX: R07.89 Other chest pain (principal); Z95.0 Presence of cardiac pacemaker; F17.210 Nicotine dependence, cigarettes, uncomplicated
CPT/HCPCS: 12345; 36415; 71045; 80053; 84484; 85025; 85610; 93005; 99283; 99284

== ENCOUNTER → 2020-04-27 13:09 | Outpatient (BNVA) | payer SELFPAY | PROVIDERS: PCP Family Medicine Adult Medicine; Visit Provider Nurse Practitioner | DX: G43.709 Chronic migraine without aura, not intractable, without status migrainosus (principal); F17.210 Nicotine dependence, cigarettes, uncomplicated | CPT/HCPCS: 99213 ==

== ENCOUNTER 2020-04-30 13:13 | Outpatient (CLI) | payer SELFPAY ==
--- NOTE | 2020-04-30 14:15 | USCV_ITS ---
Adrián Nick Age: 34 Gender: M : 1985 Exam Date: 04/30/2020 14:33 Ordering Phys: Jane Crook MD ([email or web address]) Technologist: Osito Joya Exam Location: [facility] [place] Indication: Supraventricular tachycardia BP: 100 / 58 HR: 61 Rhythm: Sinus Technical Quality: Good MEASUREMENTS (Male / Female) Normal Values 2D ECHO LV Diastolic Diameter PLAX 4.1 cm 4.2 - 5.9 / 3.9 - 5.3 cm LV Systolic Diameter PLAX 2.6 cm IVS Diastolic Thickness 1.3 cm 0.6 - 1.0 / 0.6 - 0.9 cm IVS Systolic Thickness 1.5 cm LVPW Diastolic Thickness 1.2 cm 0.6 - 1.0 / 0.6 - 0.9 cm LVPW Systolic Thickness 1.7 cm RV Chamber Size 4.2 cm LVOT Diameter 2.0 cm LV Ejection Fraction 2D Teich 66.8 % LV Ejection Fraction MOD 2C 66.7 % LV Ejection Fraction 2C AL 68.3 % LA Diameter 3.5 cm LA Width 2.9 cm LA Height 4.0 cm RA Width 2.8 cm RA Height 3.4 cm Aorta at Sinotubular Diameter 2.6 cm M-MODE LV Diastolic Diameter MM 5.1 cm 4.2 - 5.9 / 3.9 - 5.3 cm LV Systolic Diameter MM 3.3 cm LV Ejection Fraction MM Teich 65.2 % IVS Diastolic Thickness MM 1.4 cm 0.6 - 1.0 / 0.6 - 0.9 cm IVS Systolic Thickness MM 1.9 cm LVPW Diastolic Thickness MM 1.2 cm 0.6 - 1.0 / 0.6 - 0.9 cm LVPW Systolic Thickness MM 1.7 cm Aortic Annulus Diameter 2.9 cm LA Ao Ratio MM 1.3 MV E Point Septal Separation 0.3 cm DOPPLER AV Peak Velocity 77.0 cm/s LVOT Peak Velocity 65.0 cm/s AV Area Cont Eq vti 2.8 cm squared AV Area Cont Eq pk 2.8 cm squared MV Area PHT 4.4 cm squared Mitral E to A Ratio 1.4 MV E' Velocity 36.5 cm/s Mitral E to MV E' Ratio 6.0 Mitral E to LV E' Lateral Ratio 5.2 Mitral E to LV E' Septal Ratio 7.3 Right Atrial Pressure 3.0 mmHg PV Peak Velocity 62.0 cm/s RV Acceleration Time 0.1 s RV Ejection Time 0.3 s RV AcT/ET 0.5 FINDINGS Left Ventricle Normal left ventricular size, systolic function and wall thickness, with no regional wall motion abnormalities. Left ventricular ejection fraction is estimated at 65 %. Normal diastolic function. Right Ventricle Normal right ventricular size and systolic function. Pacemaker wire visualized in the right ventricle. Right Atrium Normal right atrial size. Pacemaker wire in the right atrial cavity. Left Atrium Normal left atrial size. Mitral Valve Structurally normal mitral valve. No mitral valve stenosis. Trace mitral valve regurgitation. Aortic Valve Structurally normal trileaflet aortic valve. No aortic valve stenosis. No aortic valve regurgitation. Tricuspid Valve Structurally normal tricuspid valve. Trace tricuspid valve regurgitation. Pulmonic Valve Structurally normal pulmonic valve. No pulmonary valve stenosis. Trace pulmonary valve regurgitation. Pericardium No pericardial effusion. Aorta Normal size aortic root and proximal ascending aorta. CONCLUSIONS 1. Normal left ventricular size, systolic function and wall thickness, with no regional wall motion abnormalities. Left ventricular ejection fraction is estimated at 65 %. Normal diastolic function. 2. Normal right ventricular size and systolic function. 3. Normal pulmonary artery pressure. 4. No significant valvular abnormality. 5. No significant change when compared to previous study dates 08/16/2013. Jane Crook MD (Electronically Signed) Final Date: 05 May 2020 08:14 S
== END 2020-04-30 13:14 | disposition home or self-care (01) ==
LOC: US 13:13
PROVIDERS: PCP Family Medicine Adult Medicine; Visit Provider Internal Medicine Cardiovascular Disease
DX: I47.1 Supraventricular tachycardia (principal)
CPT/HCPCS: 93306

== ENCOUNTER 2020-08-20 18:00 | Emergency (ER) | payer OTHER, SELFPAY ==
[2020-08-20 18:06] VITALS: BP 140/71; PULSE 78; RESP 18; TEMP 36.8; O2SAT 98; BMI 31.8
--- NOTE | 2020-08-20 18:15 | XRR_ITS ---
PROCEDURE INFORMATION: Exam: XR Chest Exam date and time: 08/20/2020 6:33 PM Age: 35 years old Clinical indication: Prior surgery; Surgery date: 6+ months; Patient HX: C/O cough and general not feeling well. Has had multiple mini strokes in past. Has pacemaker. TECHNIQUE: Imaging protocol: XR of the chest. Views: 2 views. COMPARISON: CR XR chest 1V portable [id number] 04/23/2020 5:26 PM FINDINGS: Tubes, catheters and devices: The pacemaker and its leads appear stable in position. Lungs: The lungs are clear. An azygos fissure is again seen in the right upper lobe. Pleural spaces: Unremarkable. No pleural effusion. No pneumothorax. Heart/Mediastinum: Unremarkable. No cardiomegaly. Bones/joints: Unremarkable. XR/XR chest 2V* [id number] IMPRESSION: No acute cardiopulmonary abnormality.
--- NOTE | 2020-08-20 18:17 | W.ED.URI ---
HPI - URI/Sore Throat General: Chief Complaint: Shortness of Breath/Dyspnea Stated Complaint: DIFF BREATHING Time Seen by Provider: 08/20/20 18:15 History of Present Illness: HPI Narrative: Patient is a 35-year-old male who comes to the ED with cough and shortness of breath. Symptoms started approximately 3 days ago. He says that 3 days ago he woke up and his significant other's cat was sleeping right by his face. Patient says that he is allergic to cats and the cat is never near him. That morning is when he started having nasal drainage congestion shortness of breath and wheezing. Patient said he has had episodes like this in the past and is usually started with some allergen. Denies any fever, emesis, abdominal pain, chest pain, bladder or bowel symptoms. Patient says he just gets nauseous sometimes after coughing a lot. Endorses chills. He says his cough is dry and nonproductive. He says he does not have any inhalers at home. Associated symptoms: Reports chills; Deny abdominal pain, chest pain, diarrhea, fever(s), headache(s), nasal congestion, nausea or vomiting Review of Systems Const: Reports: chills; Denies: fever(s) or fatigue Eyes: Denies: change in vision or eye discomfort ENMT: Denies: throat pain, odynophagia, nasal discharge or nasal congestion Card: Denies: chest pain, palpitations, edema, swelling of feet/ankles, dyspnea on exertion or orthopnea Resp: Reports: dyspnea and non-productive cough; Denies: productive cough or wheezing GI: Denies: abdominal pain, nausea, vomiting, diarrhea, constipation or hematochezia : Denies: flank pain, difficulty urinating, dysuria or hematuria Musc: Denies: neck pain, back pain or extremity swelling Skin/Breast: Denies: rash or new lesions Neuro: Denies: headache(s), numbness in extremities or weakness in extremities PFSH ED PFSH: Medical History Chronic left shoulder pain Chronic migraine Obesity (BMI 30.0-34.9) Pacemaker Seizure Surgical History Hx of cholecystectomy Hx of shoulder surgery Family History Other CAD (coronary artery disease) COPD (chronic obstructive pulmonary disease) Cancer Diabetes Seizure Stroke Social History Smoking and tobacco status: current every day smoker cigarettes Packs smoked per day: 1 Years cigarettes smoked: 20 Quit status (tobacco): has tried quititng Number of times tried to quit tobacco: 10 Second hand smoke exposure: Yes Alcohol intake: current Alcohol intake frequency: holidays/special occasions only Household members: spouse and children Marital status: Current occupational status: disabled Current gender identity: Male Physical Exam Const: COMMON NORMALS: no acute distress, patient oriented x3 and alert GENERAL APPEARANCE: cooperative and comfortable HENMT: COMMON NORMALS: normocephalic HEAD & SCALP: normocephalic MOUTH: Normal oral and palatal mucosa present THROAT: posterior oropharynx normal and uvula midline Neck/C-Spine: COMMON NORMALS: supple GENERAL: Yes normal visual inspection Resp: COMMON NORMALS: normal respiratory effort, No retractions and No use of accessory muscles EFFORT & INSPECTION: Yes able to speak in complete sentences AUSCULTATION: wheezes (Sp[place] Tory wheezing upper lungs bilaterally.) expiratory wheezes and upper bilaterally Cardio: COMMON NORMALS: regular rate, regular rhythm, S1 normal heart sound present, S2 normal heart sound present, No gallops present (Cardio), No clicks present (Cardio), No murmurs present (Cardio) and Peripheral pulses 2+ throughout RATE: regular rate RHYTHM: regular rhythm HEART SOUNDS: S1 normal heart sound present and S2 normal heart sound present PERIPHERAL PULSES: Peripheral pulses 2+ throughout GI: COMMON NORMALS: Normal to inspection, nondistended, normoactive bowel sounds present, Soft to palpation, non-tender and no masses PALPATION: Yes Soft to palpation : COMMON NORMALS: Yes no CVA tenderness BLADDER/KIDNEY EXAM: Yes no CVA tenderness Back/Pelvis: COMMON NORMALS: no CVA tenderness Extremity: COMMON NORMALS: normal to inspection Neuro: COMMON NORMALS: patient oriented x3 and moves all extremities SENSORIUM/ORIENTATION: Yes alert Skin: GENERAL SKIN EXAM: dry skin Course Reevaluation(s): Reevaluation #1: Patient says that after he got the DuoNeb breathing treatment he feels like his shortness of breath has gotten a lot better. Patient feels like he can go home and rest now. Lung sounds improved upon auscultation. Time: 18:54 Vital Signs: Vital signs: Vital Signs Temperature 98.3 F 08/20/20 18:06 Pulse Rate 72 08/20/20 19:28 Respiratory Rate 22 H 08/20/20 19:28 Blood Pressure 130/79 08/20/20 19:28 Pulse Oximetry 97 08/20/20 19:28 MDM - URI/Sore Throat MDM Narrative: Medical decision making narrative: Patient is a 35-year-old male comes to the ED with dry cough, nasal drainage, wheezing and shortness of breath. Patient says symptoms started after being close to cat which triggered his symptoms. Exam findings show bilateral upper lung wheezing. Patient was given 2 DuoNeb breathing treatments and a dose of Solu-Medrol while here in the ED. His symptoms improved and he says the shortness of breath has gotten a lot better and his lung sounds improved upon auscultation. Vital stable. Chest x-ray showed no acute findings. Patient was diagnosed with reactive airway disease with wheezing and he was discharged home with a prescription for albuterol inhaler and Medrol Dosepak. He was told to follow-up with his PCP in 7 to 10 days for reevaluation. Return to ED precautions given. Patient understood agree with plan. Imaging Data^: CXR: Attestation: I personally reviewed and interpreted this imaging study as follows: Radiologist's impression: [address] [address] XRay Report Signed Patient: Adrián Nick Unit #: [id number] : 1985 Age/Sex: 35 / M ADM Date: 08/20/20 Loc: ER Room/Bed: Attending Dr: Ordering Provider/Ordering MD: Chidi Mccain Date of Service: 08/20/20 Procedure(s): XR chest 2V* [id number] Accession Number(s): [id number] Report Number: [id number] PROCEDURE INFORMATION: Exam: XR Chest Exam date and time: 08/20/2020 6:33 PM Age: 35 years old Clinical indication: Prior surgery; Surgery date: 6+ months; Patient HX: C/O cough and general not feeling well. Has had multiple mini strokes in past. Has pacemaker. TECHNIQUE: Imaging protocol: XR of the chest. Views: 2 views. COMPARISON: CR XR chest 1V portable [id number] 04/23/2020 5:26 PM FINDINGS: Tubes, catheters and devices: The pacemaker and its leads appear stable in position. Lungs: The lungs are clear. An azygos fissure is again seen in the right upper lobe. Pleural spaces: Unremarkable. No pleural effusion. No pneumothorax. Heart/Mediastinum: Unremarkable. No cardiomegaly. Bones/joints: Unremarkable. XR/XR chest 2V* [id number] IMPRESSION: No acute cardiopulmonary abnormality. Dictated By: Ha Santamaria MD Signed By: Ha Santamaria MD Signed Date/Time: 08/20/201910 DD/ 08 Discharge Plan Discharge Patient Disposition: Home Clinical Impression: RAD (reactive airway disease) with wheezing Qualifiers: Asthma severity: mild Asthma persistence: intermittent Asthma complication type: uncomplicated Qualified Code(s): J45.20 - Mild intermittent asthma, uncomplicated Condition: Stable Prescriptions: New Medrol (Pradip) 4 mg tablets,dose pack See Rx Instructions .ROUTE .COMPLEX Qty: 21 RF: 0 albuterol sulfate 90 mcg/actuation HFA aerosol inhaler 2 inh inhalation Q6H PRN (Reason: shortness of breath or wheezing) Qty: 8.5 RF: 0 No Action ketorolac 10 mg tablet 10 mg PO Q8H PRN (Reason: pain) 5 Days Qty: 20 RF: 0 duloxetine [Cymbalta] 60 mg capsule,delayed release(DR/EC) 60 mg PO DAILY Qty: 30 RF: 2 metoprolol succinate 25 mg tablet extended release 24 hr 25 mg PO DAILY Qty: 30 RF: 3 Depakote 500 mg tablet,delayed release (DR/EC) 500 mg PO BEDTIME RF: 0 Discharge Orders: Discharge ED (Routine); Ordered 08/20/20 Ordered By: Chidi Mccain Referrals: Edin Booth MD [Primary Care Provider] - Discharge Diet: Regular Discharge Activity: Resume usual activity Patient Instructions: Albuterol (By breathing), Reactive Airways Disease (ED) Activity Restrictions/Additional Instructions: Follow-up with medical provider as directed in 7-10 days for reevaluation. Take medications as prescribed. Return to the ER or your medical provider if condition worsens. Please read and understand discharge instructions. Thank you for choosing [facility] for your healthcare needs today. Please realize this is an emergency room and that we are providing you with a medical screening exam and this may not be complete and all inclusive of all the testing and or work up that you may need to determine your ailment or severity of your illness. It is very important that you follow up as instructed or that you return to the Emergency Department should you have concerns or if your condition changes or worsens in any way. Coding Level of Care Code ED Link Trainer Maintenance Worker for Estephania Fwjohanne Exam Comprehensive
[2020-08-20 18:21] VITALS: BP 117/69; PULSE 83; O2SAT 97
[2020-08-20 18:43] VITALS: PULSE 69; RESP 17; O2SAT 98
[2020-08-20] MEDS: ipratropium-albuterol 3 mL Neb 6 ML INHALATION (18:43)
[2020-08-20 18:48] VITALS: PULSE 71
[2020-08-20 19:15] VITALS: BP 138/82; PULSE 84; RESP 18; O2SAT 98
[2020-08-20 19:28] VITALS: BP 130/79; PULSE 72; RESP 22; O2SAT 97
== END 2020-08-20 19:25 | disposition home or self-care (01) ==
PROVIDERS: Emergency Provider Physician Assistant; PCP Family Medicine Adult Medicine
DX: J45.20 Mild intermittent asthma, uncomplicated (principal); Z95.0 Presence of cardiac pacemaker; F17.210 Nicotine dependence, cigarettes, uncomplicated
CPT/HCPCS: 71046; 94640; 96372; 99283; J2930

== ENCOUNTER 2020-09-21 13:41 | Outpatient (CLI) | payer OTHER, SELFPAY ==
--- NOTE | 2020-09-21 13:50 | XRR_ITS ---
PROCEDURE INFORMATION: Exam: XR Cervical Spine Exam date and time: 09/21/2020 1:56 PM Age: 35 years old Clinical indication: Pain and injury or trauma; Fall; Blunt trauma; Neck pain; Additional info: Pain shoulder blades post fall with radiation down left arm TECHNIQUE: Imaging protocol: XR of the cervical spine. Views: 2 or 3 views. COMPARISON: CT Cervical Spine wo* [id number] 07/14/2015 1:46 AM FINDINGS: Tubes, catheters and devices: Stable left pacemaker. Bones/joints: Mild levoscoliosis. Moderate C6-C7 degenerative disc disease and spondylosis. Soft tissues: Unremarkable. XR/XR cervical spine 3V* [id number] IMPRESSION: Moderate C6-C7 degenerative disc disease and spondylosis.
--- NOTE | 2020-09-21 13:50 | XRR_ITS ---
PROCEDURE INFORMATION: Exam: XR Lumbosacral Spine Exam date and time: 09/21/2020 1:56 PM Age: 35 years old Clinical indication: Pain and injury or trauma; Fall; Blunt trauma (contusions or hematomas); Low back pain; Injury date: 09/20/20; Injury details: Fell off porch backwards; Additional info: Pain post fall on back TECHNIQUE: Imaging protocol: XR of the lumbosacral spine. Views: 2 or 3 views. COMPARISON: CT lumbar spine wo con* [id number] 03/13/2020 7:21 PM FINDINGS: Bones/joints: Hypoplastic 12th ribs. Partial sacralization of the left portion of L5 with unilateral left-sided articulation which can be a source of chronic low back pain. Soft tissues: Unremarkable. Intraperitoneal space: Surgical clips in the gallbladder fossa consistent with cholecystectomy. XR/XR lumbar spine 2-3V* [id number] IMPRESSION: 1. Hypoplastic 12th ribs. 2. Partial sacralization of the left portion of L5 with unilateral left-sided articulation which can be a source of chronic low back pain.
--- NOTE | 2020-09-21 13:50 | XRR_ITS ---
PROCEDURE INFORMATION: Exam: XR Thoracic Spine Exam date and time: 09/21/2020 1:56 PM Age: 35 years old Clinical indication: Pain and injury or trauma; Fall; Blunt trauma (contusions or hematomas); Pain in thoracic spine; Injury date: 09/20/20; Injury details: Fell off porch backwards; Additional info: Back pain post fall TECHNIQUE: Imaging protocol: XR of the thoracic spine. Views: 3 views. COMPARISON: CT thoracic spin wo con* [id number] 03/13/2020 7:19 PM FINDINGS: Tubes, catheters and devices: Stable left pacemaker. Bones/joints: Minimal upper thoracic dextroscoliosis and lower thoracic levoscoliosis. Degenerative changes in the mid and lower cervical spine. Soft tissues: Unremarkable. XR/XR thoracic spine 3V* [id number] IMPRESSION: No acute spine findings.
== END 2020-09-21 13:42 | disposition home or self-care (01) ==
PROVIDERS: PCP Family Medicine Adult Medicine; Visit Provider Nurse Practitioner
DX: Q76.49 Other congenital malformations of spine, not associated with scoliosis; M54.6 Pain in thoracic spine; M54.5 Low back pain; R20.0 Anesthesia of skin; M50.323 Other cervical disc degeneration at C6-C7 level; M47.812 Spondylosis without myelopathy or radiculopathy, cervical region
CPT/HCPCS: 72040; 72072; 72100

== ENCOUNTER 2020-10-21 21:29 | Emergency (ER) | payer OTHER, SELFPAY ==
[2020-10-21 21:34] VITALS: BP 117/86; PULSE 90; RESP 16; TEMP 36.8; O2SAT 97; BMI 31.7
--- NOTE | 2020-10-21 21:49 | W.ED.ALLEREA ---
HPI - Allergic Reaction General: Chief complaint: Allergic Reaction Stated complaint: poss allergic reaction, tongue swelling Time Seen by Provider: 10/21/20 21:39 Source: patient Mode of arrival: ambulatory Limitations: no limitations History of Present Illness: HPI narrative: Patient is a 35-year-old male who presents to ED today with an allergic reaction to cinnamon. 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 Currently he reports his tongue is swelling. Has never had anaphylactic reaction to cinnamon previously. MD complaint: allergic reaction Onset (ago): minute(s) Exposure: other (Cinnamon) Associated symptoms: Reports tongue swelling; Deny hoarseness, nausea or vomiting Severity: moderate Treatment prior to arrival: none Review of Systems Eyes: Denies: change in vision or blurry vision ENMT: Reports: swelling of lips/tongue and other (no trouble swallowing or controlling secretions); Denies: throat pain, odynophagia, hoarseness or mouth pain Card: Denies: chest pain Resp: Denies: dyspnea GI: Denies: nausea or vomiting Skin/Breast: Denies: rash Neuro: Denies: headache(s) All/Imm: Reports: tongue swelling PFSH ED PFSH: Medical History (Updated 10/21/20 @ 23:01 by MEHRAN Antunez) Chronic left shoulder pain Chronic migraine Obesity (BMI 30.0-34.9) RHONDA (obstructive sleep apnea) Pacemaker Pacemaker Pre-syncope Seizure Surgical History Hx of cholecystectomy Hx of shoulder surgery Family History Other CAD (coronary artery disease) COPD (chronic obstructive pulmonary disease) Cancer Diabetes Seizure Stroke Social History Smoking and tobacco status: current every day smoker cigarettes Packs smoked per day: 0.25 Years cigarettes smoked: 20 Quit status (tobacco): has tried quititng Number of times tried to quit tobacco: 10 Second hand smoke exposure: Yes Alcohol intake: current Alcohol intake frequency: holidays/special occasions only Household members: spouse and children Marital status: Current occupational status: disabled Current gender identity: Male Physical Exam Const: COMMON NORMALS: no acute distress, patient oriented x3, no limitations and alert GENERAL APPEARANCE: cooperative ORIENTATION/CONSCIOUSNESS: Yes awake, Yes oriented to person, Yes oriented to place and Yes oriented to time HENMT: FACE & SINUS: normal facial exam MOUTH: other (protruding tongue; tongue swelling) Neck/C-Spine: GENERAL: No anterior neck swelling and No submandibular swelling Resp: COMMON NORMALS: normal respiratory effort and clear to auscultation bilaterally EFFORT & INSPECTION: Yes able to speak in complete sentences AUSCULTATION: clear to auscultation bilaterally Cardio: COMMON NORMALS: regular rate and regular rhythm RATE: regular rate RHYTHM: regular rhythm Neuro: CARRI COMA SCALE: document GCS findings Carri coma scale eye opening: Spontaneous Carri coma scale verbal response: Orientated Carri coma scale motor response: Obey commands [place] coma scale total score: 15 COMMON NORMALS: patient oriented x3 SENSORIUM/ORIENTATION: Yes alert, Yes oriented to person, Yes oriented to place and Yes oriented to time Skin: COMMON NORMALS: no rashes or lesions noted GENERAL SKIN EXAM: no rashes or lesions noted Course Vital Signs: Vital signs: Vital Signs Temperature 98.3 F 10/21/20 21:34 Pulse Rate 71 10/21/20 22:29 Respiratory Rate 16 10/21/20 22:29 Blood Pressure 115/76 10/21/20 22:29 Pulse Oximetry 97 10/21/20 22:29 MDM - Allergic Reaction MDM Narrative: Medical decision making narrative: Patient states he feels much improved after IV meds here. Patient states he feels comfortable going home at this time. Discharge Plan Discharge Patient Disposition: Home Clinical Impression: Allergic reaction Qualifiers: Encounter type: initial encounter Qualified Code(s): T78.40XA - Allergy, unspecified, initial encounter Condition: Stable Prescriptions: No Action cyclobenzaprine 10 mg tablet 10 mg PO TID PRN (Reason: muscle spasm) Qty: 30 RF: 0 pantoprazole 40 mg tablet,delayed release (DR/EC) 40 mg PO DAILY Qty: 30 RF: 3 metoprolol succinate 25 mg tablet extended release 24 hr 25 mg PO BID Qty: 60 RF: 6 duloxetine [Cymbalta] 60 mg capsule,delayed release(DR/EC) 60 mg PO DAILY Qty: 30 RF: 2 indomethacin 50 mg capsule 50 mg PO TID MDD Osteoarthritis and back pain Qty: 90 RF: 3 Depakote 500 mg tablet,delayed release (DR/EC) 500 mg PO BEDTIME RF: 0 albuterol sulfate 90 mcg/actuation HFA aerosol inhaler 2 inh inhalation Q6H PRN (Reason: shortness of breath or wheezing) Qty: 8.5 RF: 0 Discharge Orders: Discharge ED (Routine); Ordered 10/21/20 Ordered By: Diana Salcedo Referrals: Edin Booth MD [Primary Care Provider] - Patient Instructions: Food Allergy (ED), Anaphylaxis (ED) Coding Level of Care Code ED Furniture Sales Consultant for Chg Fwd Exam Detailed
[2020-10-21] MEDS: diphenhydrAMINE 50 mg/mL SDV 1mL IVP (21:56)
[2020-10-21] MEDS: famotidine 20 mg/2 mL INJ 40 MG IVP (21:59)
[2020-10-21 22:29] VITALS: BP 115/76; PULSE 71; RESP 16; O2SAT 97
[2020-10-21 23:12] VITALS: BP 115/87; PULSE 76; RESP 14; O2SAT 98
== END 2020-10-21 23:12 | disposition home or self-care (01) ==
PROVIDERS: Emergency Provider Physician Assistant; PCP Family Medicine Adult Medicine
DX: T78.40XA Allergy, unspecified, initial encounter (principal); Z95.0 Presence of cardiac pacemaker; F17.210 Nicotine dependence, cigarettes, uncomplicated
CPT/HCPCS: 96374; 96375; 99283; J1200; J2930; J3490

== ENCOUNTER → 2021-02-01 10:49 | Outpatient (BNVA) | payer OTHER, SELFPAY | PROVIDERS: PCP Family Medicine Adult Medicine; Visit Provider Registered Nurse Neonatal Intensive Care | DX: Z20.822 Contact with and (suspected) exposure to COVID-19 (principal) | CPT/HCPCS: 87635 ==

== ENCOUNTER → 2021-02-26 14:17 | Outpatient (BNVA) | payer OTHER, SELFPAY | PROVIDERS: PCP Family Medicine Adult Medicine; Visit Provider Family Medicine Adult Medicine | DX: S69.90XA Unspecified injury of unspecified wrist, hand and finger(s), initial encounter (principal); X58.XXXA Exposure to other specified factors, initial encounter | CPT/HCPCS: 73120 ==

== ENCOUNTER 2021-03-23 08:28 | Emergency (ER) | payer OTHER, SELFPAY ==
[2021-03-23 08:36] VITALS: BP 112/81; PULSE 83; RESP 17; TEMP 36.7; O2SAT 99; BMI 31.5
[2021-03-23 09:09] VITALS: BP 112/81; PULSE 83; RESP 17; TEMP 36.7; O2SAT 99
--- NOTE | 2021-03-23 09:34 | CT_ITS ---
WS: [id number] CT FACIAL BONES with contrast. HISTORY: pain/swelling/poss abscess overlying L maxillary TECHNIQUE: Images obtained from the supraorbital location through the mandible. Soft tissue and bone windows are reviewed. Coronal and sagittal reformats have also been submitted. DLP: 805.[address] scans at [facility] use at least one of these dose optimization techniques: automated e xposure control; mA and/or kV adjustment per patient size (includes targeted exams where dose is matc hed to clinical indication); or iterative reconstruction. COMPARISON: None available. Contrast: Omnipaque 300; 95 mL IV. LEFT maxillary subperiosteal abscess measures 2.3 x 1.8 x 1.0 cm and is associated with the LEFT maxi llary canine. There is a moderate amount of adjacent soft tissue edema. There is extensive dental car ies bilaterally but greatest involving the maxilla on the LEFT. There is mild induration in the soft tissues around the maxilla from the infection. Mild mucoperiosteal thickening of LEFT maxillary sinus. Reactive lymph nodes in the submandibular reg ion measure up to 9 mm in diameter. Mildly prominent LEFT level IIa lymph nodes are also noted. CT/CT facial bones w con [id number] IMPRESSION: 1. LEFT maxillary subperiosteal abscess measures 2.3 x 1.8 x 1.0 cm. Abscess i s associated with the LEFT maxillary canine. Significant dental caries surround ing the LEFT maxillary canine. 2. Reactive lymphadenopathy LEFT neck.
--- NOTE | 2021-03-23 09:36 | ED_ITS ---
Documented by User: MEHRAN Antunez 03/23/21 16:12 HPI - General Adult General: Chief complaint: Skin/Abscess/Foreign Body Stated complaint: FACE SWELLING & PAIN,N/V Time Seen by Provider: 03/23/21 09:04 Source: patient Mode of arrival: ambulatory Limitations: no limitations History of Present Illness: HPI narrative: Patient is a 35-year-old male who presents to ED today with a complaint of left-sided facial pain and swelling and concerns for infection. Patient states several days ago he began having swelling to the left side of his face. He was seen by his company medical provider who placed him on PenVK. Patient states he has had approximately 3 days worth of this medication and does not seem to be improving. Patient states pain continues to worsen. He reports severe discomfort and pressure overlying his left maxillary sinus. He states last night he woke up drenched in sweat and thinks maybe he broke a fever. Patient does tell me he has severely poor dentition and most likely his symptoms started secondary to a dental infection. Onset (ago): day(s) Location: face Severity: severe Quality: dull and constant Pain Consistency: constant Relieving factors: none Exacerbating factors: none Associated symptoms: Reports nausea, vomiting and other (subjective fevers); Deny chest pain, confusion, dyspnea, headache(s), malaise or rash Treatments prior to arrival: other (abx) Review of Systems Const: Reports: fever(s) (subjective) and chills; Denies: body aches, fatigue or malaise Eyes: Denies: change in vision, blurry vision, photophobia, floaters or seeing flashes ENMT: Reports: sinus pain; Denies: throat pain, odynophagia, ear or mastoid pain, ear discharge, nasal discharge, nasal congestion, epistaxis or post nasal drip Card: Denies: chest pain Resp: Denies: dyspnea GI: Reports: nausea and vomiting; Denies: abdominal pain Musc: Denies: neck pain or back pain Skin/Breast: Denies: rash Neuro: Denies: headache(s), numbness in extremities, weakness in extremities, sensory changes, lack of coordination, dizziness or confusion [facility] ED PFSH: Medical History (Updated 03/23/21 @ 15:08 by MEHRAN Antunez) Chronic left shoulder pain Chronic migraine Crushing injury of hand, left Obesity (BMI 30.0-34.9) RHONDA (obstructive sleep apnea) Pacemaker Pacemaker Pre-syncope Seizure Surgical History Hx of cholecystectomy Hx of shoulder surgery Family History Other CAD (coronary artery disease) COPD (chronic obstructive pulmonary disease) Cancer Diabetes Seizure Stroke Social History Smoking and tobacco status: current every day smoker cigarettes Packs smoked per day: 0.25 Years cigarettes smoked: 20 Quit status (tobacco): has tried quititng Number of times tried to quit tobacco: 10 Second hand smoke exposure: Yes Alcohol intake: current Alcohol intake frequency: holidays/special occasions only Household members: spouse and children Marital status: Current occupational status: disabled Current gender identity: Male Physical Exam Const: COMMON NORMALS: no acute distress, average body habitus, patient oriented x3, no limitations, healthy appearing, alert and well nourished GENERAL APPEARANCE: cooperative HENMT: COMMON NORMALS: normocephalic, atraumatic, hearing grossly normal bilaterally, external ears normal, EAC's normal, TM's normal bilaterally, Normal external nose present, Normal nasal mucous membranes and turbinates present, moist oral mucous membranes and oropharynx normal HEAD & SCALP: normal to inspection, normocephalic and atraumatic FACE & SINUS: other (severe tenderness and induration overlying L maxillay region) NOSE: Normal external nose present and Normal nasal mucous membranes and turbinates present EXTERNAL EAR: Yes external ears normal EXTERNAL AUDITORY CANAL: EAC's normal TYMPANIC MEMBRANE: TM's normal bilaterally MOUTH: Normal oral and palatal mucosa present, lip normal, tongue normal and other (floor of mouth is soft/non- elevated) TEETH & GINGIVA: Yes other (extremely poor dentition with almost every tooth decayed to base) THROAT: posterior oropharynx normal, tonsils normal and uvula midline Eye: COMMON NORMALS: Equal, round and reactive pupils present and EOMs intact bilaterally GENERAL EYE: appearance normal, both eyes and all related structures PUPIL: Yes Equal, round and reactive pupils present Neck/C-Spine: COMMON NORMALS: full ROM and no lymphadenopathy GENERAL: No anterior neck swelling and No submandibular swelling Resp: COMMON NORMALS: normal respiratory effort and clear to auscultation bilaterally AUSCULTATION: clear to auscultation bilaterally Cardio: COMMON NORMALS: regular rate and regular rhythm RATE: regular rate RHYTHM: regular rhythm Neuro: COMMON NORMALS: patient oriented x3 SENSORIUM/ORIENTATION: Yes alert Skin: COMMON NORMALS: no rashes or lesions noted GENERAL SKIN EXAM: no rashes or lesions noted Course ED course: Significant delay in care as we are trying to contact oral maxillary facial surgery for follow up for this patient's dental abscess. We have a page out to [facility] but provider is currently in surgery. Consultations: Consultation #1: Dr. Donald Reynaga/[facility]OME[facility] Shepherd- recommends switching oral abx to Augmentin/Flagyl and they will see in office tomorrow for I&D Vital Signs: Vital signs: Vital Signs Temperature 98.1 F 03/23/21 09:09 Pulse Rate 83 03/23/21 09:09 Respiratory Rate 17 03/23/21 09:09 Blood Pressure 112/81 03/23/21 09:09 Pulse Oximetry 99 03/23/21 09:09 MDM - General Adult Lab Data: Labs: Lab Results 03/23/21 03/23/21 10:19 10:19 WBC 9.1 10^3/uL 10^3/ uL (4.0-10.0) RBC 5.34 10^6/uL H 10 ^6/uL (4.1-5.3) Hgb 15.7 g/dL g/dL (11.7-16.6) Hct 47.2 % % (42.0-52.0) MCV 88.4 fl fl (80-94) MCH 29.4 pg pg (28.0-34.0) MCHC 33.3 g/dL g/dL (30.0-36.0) RDW 12.4 % % (12.1-15.1) Plt Count 239 10^3/cmm 10^3 /cmm (130-400) MPV 10.1 fL fL (7.4-10.4) Neut % (Auto) 69.5 % % Lymph % (Auto) 20.9 % % Wilkin % (Auto) 7.4 % % Eos % (Auto) 1.6 % % Baso % (Auto) 0.4 % % Neut # (Auto) 6.33 10^3/uL 10^3 /uL (1.8-7.7) Lymph # (Auto) 1.9 10^3/uL 10^3/ uL (0.8-4.8) Wilkin # (Auto) 0.7 10^3/uL 10^3/ uL (0.2-0.9) Eos # (Auto) 0.2 10^3/uL 10^3/ uL (0.0-0.8) Baso # (Auto) 0.0 10^3/uL 10^3/ uL (0.0-0.1) Nucleated RBC % (a uto) 0 % % Nucleated RBCs # 0.0 /100WBC /100W BC Sodium 140 mmol/L mmol/L (136-145) Potassium 4.5 mmol/L mmol/L (3.5-5.1) Chloride 106 mmol/L mmol/L (98-107) Carbon Dioxide 20 mmol/L L mmol/ L (22-29) Anion Gap 18.5 (5-19) BUN 8 mg/dL mg/dL (6-20) Creatinine 0.8 mg/dL mg/dL (0.7-1.2) GFR Calculation 111.3 mL/min mL/m in (90-130) Glucose 86 mg/dL mg/dL (65-115) Calculated Osmolal ity 288 mOsm/kg mOsm/ kg (285-295) Calcium 8.9 mg/dL mg/dL (8.5-10.5) Total Bilirubin 0.3 mg/dL mg/dL (0.15-1.2) AST 12 U/L U/L (0-40) ALT 14 U/L U/L (0-41) Alkaline Phosphata se 73 IU/L IU/L (40-130) Total Protein 7.7 g/dL g/dL (6.6-8.7) Albumin 4.5 g/dL g/dL (3.5-5.2) Globulin 3.2 g/dL g/dL (1.3-4.6) Imaging Data^: CT facial: Radiologist's impression: Corrie [address], [place] [address]S[place] Scan ReportSigned Patient: Adrián Nick Virgiliojose francisco #: [id number]: [id number]#:[id number]/Sex: 35 / MADM Date: 03/23/21Loc: ERRoom/Bed:Attending Dr: Ordering Provider/Ordering MD: Diana Salcedo Date of Service: 03/23/21 Procedure(s): CT facial bones w con [id number] Accession Number(s): [id number] Report Number: [id number] WS: [id number] CT FACIAL BONES with contrast. HISTORY: pain/swelling/poss abscess overlying L maxillary TECHNIQUE: Images obtained from the supraorbital location through the mandible. Soft tissue and bone windows are reviewed. Coronal and sagittal reformats have also been submitted. DLP: 805.[address] scans at [facility] use at least one of these dose optimization techniques: automated exposure control; mA and/or kV adjustment per patient size (includes targeted exams where dose is matched to clinical indication); or iterative reconstruction. COMPARISON: None available. Contrast: Omnipaque 300; 95 mL IV. LEFT maxillary subperiosteal abscess measures 2.3 x 1.8 x 1.0 cm and is associated with the LEFT maxillary canine. There is a moderate amount of adjacent soft tissue edema. There is extensive dental caries bilaterally but greatest involving the maxilla on the LEFT. There is mild induration in the soft tissues around the maxilla from the infection. Mild mucoperiosteal thickening of LEFT maxillary sinus. Reactive lymph nodes in the submandibular region measure up to 9 mm in diameter. Mildly prominent LEFT level IIa lymph nodes are also noted. CT/CT facial bones w [facility] [id number] IMPRESSION: 1. LEFT maxillary subperiosteal abscess measures 2.3 x 1.8 x 1.0 cm. Abscess is associated with the LEFT maxillary canine. Significant dental caries surrounding the LEFT maxillary canine. 2. Reactive lymphadenopathy LEFT neck. Dictated By:Elise Robledo DOSigned By:Elise Robledo DOSigned Date/Time:03/23/21 1127DD/ 1109 Discharge Plan Discharge Patient Disposition: Home Clinical Impression: Dental abscess Condition: Stable Prescriptions: New Flagyl 500 mg tablet 500 mg PO BID 7 Days Qty: 14 RF: 0 Augmentin 875-125 mg tablet 1 tab PO Q12H 7 Days Qty: 14 RF: 0 No Action metoprolol succinate 25 mg tablet extended release 24 hr 25 mg PO BID Qty: 60 RF: 6 naproxen 500 mg tablet 500 mg PO BID Qty: 30 RF: 0 albuterol sulfate 90 mcg/actuation HFA aerosol inhaler 2 inh inhalation Q6H PRN (Reason: shortness of breath or wheezing) Qty: 8.5 RF: 0 Discharge Orders: Discharge ED (Routine); Ordered 03/23/21 Ordered By: Diana Salcedo Referrals: Edin Booth MD [Primary Care Provider] - Activity Restrictions/Additional Instructions: Dr. Donald Reynaga [facility] [address] [address] [id number] APPOINTMENT TOMORROW MondayMAR 24 @ 2:30PM Coding Level of Care Code ED Cigar Making Machine Supervisor for Chg Fwd Exam Detailed Documented by User: Fermín Betancourt DO 03/23/21 17:36 HPI - General Adult General: Chief complaint: Skin/Abscess/Foreign Body Stated complaint: FACE SWELLING & PAIN,N/V Time Seen by Provider: 03/23/21 09:04 [facility] ED PFS: Medical History (Updated 03/23/21 @ 15:08 by MEHRAN Antunez) Chronic left shoulder pain Chronic migraine Crushing injury of hand, left Obesity (BMI 30.0-34.9) RHONDA (obstructive sleep apnea) Pacemaker Pacemaker Pre-syncope Seizure Surgical History Hx of cholecystectomy Hx of shoulder surgery Family History Other CAD (coronary artery disease) COPD (chronic obstructive pulmonary disease) Cancer Diabetes Seizure Stroke Social History Smoking and tobacco status: current every day smoker cigarettes Packs smoked per day: 0.25 Years cigarettes smoked: 20 Quit status (tobacco): has tried quititng Number of times tried to quit tobacco: 10 Second hand smoke exposure: Yes Alcohol intake: current Alcohol intake frequency: holidays/special occasions only Household members: spouse and children Marital status: Current occupational status: disabled Current gender identity: Male Course Vital Signs: Vital signs: Vital Signs Temperature 98.1 F 03/23/21 09:09 Pulse Rate 83 03/23/21 09:09 Respiratory Rate 17 03/23/21 09:09 Blood Pressure 112/81 03/23/21 09:09 Pulse Oximetry 99 03/23/21 09:09 MDM - General Adult MDM Narrative: Medical decision making narrative: Chart reviewed and patient discussed with midlevel. Agree with assessment and plan. Lab Data: Labs: Lab Results 03/23/21 03/23/21 10:19 10:19 WBC 9.1 10^3/uL 10^3/ uL (4.0-10.0) RBC 5.34 10^6/uL H 10 ^6/uL (4.1-5.3) Hgb 15.7 g/dL g/dL (11.7-16.6) Hct 47.2 % % (42.0-52.0) MCV 88.4 fl fl (80-94) MCH 29.4 pg pg (28.0-34.0) MCHC 33.3 g/dL g/dL (30.0-36.0) RDW 12.4 % % (12.1-15.1) Plt Count 239 10^3/cmm 10^3 /cmm (130-400) MPV 10.1 fL fL (7.4-10.4) Neut % (Auto) 69.5 % % Lymph % (Auto) 20.9 % % Wilkin % (Auto) 7.4 % % Eos % (Auto) 1.6 % % Baso % (Auto) 0.4 % % Neut # (Auto) 6.33 10^3/uL 10^3 /uL (1.8-7.7) Lymph # (Auto) 1.9 10^3/uL 10^3/ uL (0.8-4.8) Wilkin # (Auto) 0.7 10^3/uL 10^3/ uL (0.2-0.9) Eos # (Auto) 0.2 10^3/uL 10^3/ uL (0.0-0.8) Baso # (Auto) 0.0 10^3/uL 10^3/ uL (0.0-0.1) Nucleated RBC % (a uto) 0 % % Nucleated RBCs # 0.0 /100WBC /100W BC Sodium 140 mmol/L mmol/L (136-145) Potassium 4.5 mmol/L mmol/L (3.5-5.1) Chloride 106 mmol/L mmol/L (98-107) Carbon Dioxide 20 mmol/L L mmol/ L (22-29) Anion Gap 18.5 (5-19) BUN 8 mg/dL mg/dL (6-20) Creatinine 0.8 mg/dL mg/dL (0.7-1.2) GFR Calculation 111.3 mL/min mL/m in (90-130) Glucose 86 mg/dL mg/dL (65-115) Calculated Osmolal ity 288 mOsm/kg mOsm/ kg (285-295) Calcium 8.9 mg/dL mg/dL (8.5-10.5) Total Bilirubin 0.3 mg/dL mg/dL (0.15-1.2) AST 12 U/L U/L (0-40) ALT 14 U/L U/L (0-41) Alkaline Phosphata se 73 IU/L IU/L (40-130) Total Protein 7.7 g/dL g/dL (6.6-8.7) Albumin 4.5 g/dL g/dL (3.5-5.2) Globulin 3.2 g/dL g/dL (1.3-4.6) Discharge Plan Discharge Patient Disposition: Home Clinical Impression: Dental abscess Condition: Stable Prescriptions: New Flagyl 500 mg tablet 500 mg PO BID 7 Days Qty: 14 RF: 0 Augmentin 875-125 mg tablet 1 tab PO Q12H 7 Days Qty: 14 RF: 0 No Action metoprolol succinate 25 mg tablet extended release 24 hr 25 mg PO BID Qty: 60 RF: 6 naproxen 500 mg tablet 500 mg PO BID Qty: 30 RF: 0 albuterol sulfate 90 mcg/actuation HFA aerosol inhaler 2 inh inhalation Q6H PRN (Reason: shortness of breath or wheezing) Qty: 8.5 RF: 0 Discharge Orders: Discharge ED (Routine); Ordered 03/23/21 Ordered By: Diana Salcedo Referrals: Edin Booth MD [Primary Care Provider] - Activity Restrictions/Additional Instructions: Dr. Donald Reynaga [address] [address] APPOINTMENT TOMORROW MondayMAR 24 @ 2:30PM Coding Level of Care Code ED Cigar Making Machine Supervisor for Chg Fwd Exam Detailed
[2021-03-23 10:25] LABS: Basophils % 0.4 %; Eosinophils # 0.2 10^3/uL (0.0-0.8); Eosinophils % 1.6 %; Hematocrit 47.2 % (42.0-52.0); Hemoglobin 15.7 g/dL (11.7-16.6); Lymphocytes # 1.9 10^3/uL (0.8-4.8); Lymphocytes % 20.9 %; Mean Corpuscular HGB Conc 33.3 g/dL (30.0-36.0); Mean Corpuscular Hemoglobin 29.4 pg (28.0-34.0); Mean Corpuscular Volume 88.4 fl (80-94); Mean Platelet Volume 10.1 fL (7.4-10.4); Monocytes # 0.7 10^3/uL (0.2-0.9); Monocytes % 7.4 %; Neutrophils # 6.33 10^3/uL (1.8-7.7); Neutrophils % 69.5 %; Nucleated Red Blood Cells % 0 %; Platelet Count 239 10^3/cmm (130-400); Red Blood Count 5.34 10^6/uL (4.1-5.3); Red Cell Distribution Width 12.4 % (12.1-15.1); White Blood Count 9.1 10^3/uL (4.0-10.0)
[2021-03-23 10:42] LABS: Alanine Aminotransferase 14 U/L (0-41); Albumin Level 4.5 g/dL (3.5-5.2); Alkaline Phosphatase 73 IU/L (40-130); Anion Gap 18.5 (5-19); Aspartate Amino Transferase 12 U/L (0-40); Blood Urea Nitrogen 8 mg/dL (6-20); Calcium 8.9 mg/dL (8.5-10.5); Carbon Dioxide 20 mmol/L (22-29); Chloride 106 mmol/L (98-107); Globulin 3.2 g/dL (1.3-4.6); Glomerular Filtration Rate 111.3 mL/min (90-130); Glucose 86 mg/dL (65-115); Osmolality Calculated 288 mOsm/kg (285-295); Potassium 4.5 mmol/L (3.5-5.1); Sodium 140 mmol/L (136-145); Total Bilirubin 0.3 mg/dL (0.15-1.2); Total Protein 7.7 g/dL (6.6-8.7)
[2021-03-23] MEDS: iohexol 300 mg/mL 100 mL Btl IV (10:57)
[2021-03-23] MEDS: ceFOXitin 2,000 MG in sodium chloride 0.9% (plus) 50 ML 100 MG IV (12:18)
[2021-03-23] MEDS: morphine 4 mg/mL SDV 1 mL IVP (12:37)
[2021-03-23] MEDS: ondansetron 2 mg/ML SDV 2 mL 4 MG IVP (12:37)
[2021-03-23] MEDS: metroNIDAZOLE IV 500 MG/100 ML PREMIX 100 MG IV (15:31)
== END 2021-03-23 16:56 | disposition home or self-care (01) ==
PROVIDERS: Emergency Provider Physician Assistant; PCP Family Medicine Adult Medicine
DX: K04.7 Periapical abscess without sinus (principal); Z95.0 Presence of cardiac pacemaker; F17.210 Nicotine dependence, cigarettes, uncomplicated
CPT/HCPCS: 70487; 80053; 85025; 96365; 96367; 96375; 99283; J0694; J2270; J2405; Q9967; S0030

== ENCOUNTER 2021-04-21 23:43 | Emergency (ER) | payer OTHER, SELFPAY ==
[2021-04-21 23:48] VITALS: BP 140/81; PULSE 109; RESP 20; TEMP 36.8; O2SAT 98; BMI 31.5
--- NOTE | 2021-04-21 23:56 | ED_ITS ---
HPI - Abdominal Pain General: Chief Complaint: Abdominal Pain Stated Complaint: ABD pain into kidneys Time Seen by Provider: 04/21/21 23:47 History of Present Illness: HPI narrative: Patient is a 35-year-old male comes to the ED with abdominal pain. Symptoms started approximately 3 days ago. He has been having nausea, multiple episodes of emesis and diarrhea since onset of symptoms. His abdominal pain is located in the right lower quadrant of the abdomen and he rates it currently a 7 out of 10. Past abdominal surgical history of cholecystectomy. Associated Symptoms: Reports diarrhea, nausea and vomiting; Denies chills, constipation, dysuria, fever(s), hematochezia and hematuria Review of Systems Const: Denies: fever(s), chills or fatigue Eyes: Denies: change in vision or eye discomfort ENMT: Denies: throat pain, odynophagia, nasal discharge or nasal congestion Card: Denies: chest pain, palpitations, edema, swelling of feet/ankles, dyspnea on exertion or orthopnea Resp: Denies: dyspnea, productive cough or non-productive cough GI: Reports: abdominal pain, nausea, vomiting and diarrhea; Denies: constipation or hematochezia : Denies: flank pain, difficulty urinating, dysuria or hematuria Musc: Denies: neck pain, back pain or extremity swelling Skin/Breast: Denies: rash or new lesions Neuro: Denies: headache(s), numbness in extremities or weakness in extremities PFS ED PFSH: Medical History Chronic left shoulder pain Chronic migraine Crushing injury of hand, left Obesity (BMI 30.0-34.9) RHONDA (obstructive sleep apnea) Pacemaker Pacemaker Pre-syncope Seizure Surgical History Hx of cholecystectomy Hx of shoulder surgery Family History Other CAD (coronary artery disease) COPD (chronic obstructive pulmonary disease) Cancer Diabetes Seizure Stroke Social History Smoking and tobacco status: current every day smoker cigarettes Packs smoked per day: 0.25 Years cigarettes smoked: 20 Quit status (tobacco): has tried quititng Number of times tried to quit tobacco: 10 Second hand smoke exposure: Yes Alcohol intake: current Alcohol intake frequency: holidays/special occasions only Household members: spouse and children Marital status: Current occupational status: disabled Current gender identity: Male Physical Exam Const: COMMON NORMALS: patient oriented x3 and alert GENERAL APPEARANCE: cooperative; not comfortable (Patient appears uncomfortable and is in some pain.) HENMT: COMMON NORMALS: normocephalic HEAD & SCALP: normocephalic MOUTH: Normal oral and palatal mucosa present THROAT: posterior oropharynx normal and uvula midline Neck/C-Spine: COMMON NORMALS: supple GENERAL: Yes normal visual inspection Resp: COMMON NORMALS: normal respiratory effort, No retractions, No use of accessory muscles and clear to auscultation bilaterally AUSCULTATION: clear to auscultation bilaterally Cardio: COMMON NORMALS: regular rate, regular rhythm, S1 normal heart sound present, S2 normal heart sound present, No gallops present (Cardio), No clicks present (Cardio), No murmurs present (Cardio) and Peripheral pulses 2+ throughout RATE: regular rate RHYTHM: regular rhythm HEART SOUNDS: S1 normal heart sound present and S2 normal heart sound present PERIPHERAL PULSES: Peripheral pulses 2+ throughout GI: COMMON NORMALS: Normal to inspection, nondistended, normoactive bowel sounds present, Soft to palpation and no masses PALPATION: Yes Soft to palpation, Yes Tenderness to palpation present (GI) Details: RLQ (Positive McBurney's point tenderness. Positive Rovsing's sign) and Yes Rebound tenderness present Details: McBurney's point : COMMON NORMALS: Yes no CVA tenderness BLADDER/KIDNEY EXAM: Yes no CVA tenderness Back/Pelvis: COMMON NORMALS: no CVA tenderness Extremity: COMMON NORMALS: normal to inspection Neuro: COMMON NORMALS: patient oriented x3 SENSORIUM/ORIENTATION: Yes alert GAIT: Yes Normal gait present Skin: GENERAL SKIN EXAM: dry skin Course Vital Signs: Vital signs: Vital Signs Temperature 98.2 F 04/21/21 23:48 Pulse Rate 109 H 04/21/21 23:48 Respiratory Rate 18 04/22/21 00:19 Blood Pressure 140/81 04/21/21 23:48 Pulse Oximetry 99 04/22/21 00:19 MDM - Abdominal Pain MDM Narrative: Medical decision making narrative: Patient is a 35-year-old male who comes to the ED with abdominal pain. He also is having nausea, vomiting diarrhea and the symptoms started approximately 3 days ago. Vital stable. Patient appears nontoxic and appears a little uncomfortable and in pain. He has some right lower quadrant abdominal tenderness upon exam. Positive McBurney's point tenderness. Labs are unremarkable. CT of abdomen pelvis showed no acute findings. Patient was given 1 L of IV fluids, Zofran and morphine and the symptoms improved. He said his nausea has completely resolved. Patient diagnosed with viral syndrome and discharged home with a prescription for dicyclomine and Zofran. He was told to follow-up with his PCP in 7 to 10 days for reevaluation. Return to ED precautions given. Patient understood and agreed with plan. Lab Data: Attestation: I reviewed the patient's lab results. Labs: Lab Results 04/22/21 04/22/21 00:02 00:02 WBC 6.6 10^3/uL 10^3/ uL (4.0-10.0) RBC 5.46 10^6/uL H 10 ^6/uL (4.1-5.3) Hgb 16.2 g/dL g/dL (11.7-16.6) Hct 47.6 % % (42.0-52.0) MCV 87.2 fl fl (80-94) MCH 29.7 pg pg (28.0-34.0) MCHC 34.0 g/dL g/dL (30.0-36.0) RDW 12.6 % % (12.1-15.1) Plt Count 213 10^3/cmm 10^3 /cmm (130-400) MPV 11.0 fL H fL (7.4-10.4) Neut % (Auto) 46.6 % % Lymph % (Auto) 37.6 % % Thurston % (Auto) 10.4 % % Eos % (Auto) 4.2 % % Baso % (Auto) 0.9 % % Neut # (Auto) 3.08 10^3/uL 10^3 /uL (1.8-7.7) Lymph # (Auto) 2.5 10^3/uL 10^3/ uL (0.8-4.8) Thurston # (Auto) 0.7 10^3/uL 10^3/ uL (0.2-0.9) Eos # (Auto) 0.3 10^3/uL 10^3/ uL (0.0-0.8) Baso # (Auto) 0.1 10^3/uL 10^3/ uL (0.0-0.1) Nucleated RBC % (a uto) 0 % % Nucleated RBCs # 0.0 /100WBC /100W BC Sodium 142 mmol/L mmol/L (136-145) Potassium 4.2 mmol/L mmol/L (3.5-5.1) Chloride 105 mmol/L mmol/L (98-107) Carbon Dioxide 21 mmol/L L mmol/ L (22-29) Anion Gap 20.2 H (5-19) BUN 8 mg/dL mg/dL (6-20) Creatinine 0.9 mg/dL mg/dL (0.7-1.2) GFR Calculation 97.2 mL/min mL/mi n (90-130) Glucose 80 mg/dL mg/dL (65-115) Calculated Osmolal ity 291 mOsm/kg mOsm/ kg (285-295) Calcium 9.0 mg/dL mg/dL (8.5-10.5) Total Bilirubin 0.3 mg/dL mg/dL (0.15-1.2) AST 17 U/L U/L (0-40) ALT 18 U/L U/L (0-41) Alkaline Phosphata se 75 IU/L IU/L (40-130) Total Protein 7.1 g/dL g/dL (6.6-8.7) Albumin 4.5 g/dL g/dL (3.5-5.2) Globulin 2.6 g/dL g/dL (1.3-4.6) Lipase 15 U/L U/L (13-60) Imaging Data ^: CT Abd/Pel: Attestation: I personally reviewed and interpreted this imaging study as follows: Radiologist's impression: [address] [address] [address] Scan Report Signed Patient: Adrián Nick Unit #: [id number] : 1985 Acct#:[id number] Age/Sex: 35 / M ADM Date: 04/21/21 Loc: ER Room/Bed: Attending Dr: Ordering Provider/Ordering MD: Alexander Robbins MD Date of Service: 04/21/21 Procedure(s): CT abdomen pelvis w con* [id number] Accession Number(s): [id number] Report Number: [id number] PROCEDURE INFORMATION: Exam: CT Abdomen And Pelvis With Contrast Exam date and time: 04/21/2021 11:57 PM Age: 35 years old Clinical indication: Abdominal pain; Localized; Right lower quadrant (rlq); Prior surgery; Surgery type: Gb. Pacemaker. ; Patient HX: C/O rlq pain with n/v and fever x 3 days. Asked patient about what appears to be a surgical clip in pelvis and states has had taint surgery. TECHNIQUE: Imaging protocol: Computed tomography of the abdomen and pelvis with contrast. Radiation optimization: All CT scans at this facility use at least one of these dose optimization techniques: automated exposure control; mA and/or kV adjustment per patient size (includes targeted exams where dose is matched to clinical indication); or iterative reconstruction. Contrast material: OMNI 300; Contrast volume: 95 ml; Contrast route: INTRAVENOUS (IV); COMPARISON: US abdomen limited [id number] 11/26/2016 5:28 PM RADIATION DOSE METRICS: Total DLP (mGy-cm): 1746.77 FINDINGS: Tubes, catheters and devices: A pacemaker device is present, and its leads are in appropriate position. Lungs: There is some mild dependent ground-glass opacity posteriorly at the lung bases more on the right than on the left, likely representing hypoventilation but one could not exclude infectious or inflammatory disease. Please correlate with clinical history. Liver: There is no focal abnormality within the liver. Gallbladder and bile ducts: There has been a cholecystectomy. Pancreas: The pancreas is normal. Spleen: The spleen is normal. Adrenal glands: The adrenal glands are normal. Kidneys and ureters: 7 mm simple cyst right kidney. The left kidney is normal. There is no evidence of hydronephrosis. There is no evidence of renal or ureteral calcifications. Stomach and bowel: There is no evidence of colitis/diverticulitis. Appendix: A normal appendix is identified. Intraperitoneal space: There is no evidence of free intraperitoneal fluid. There is no evidence of free intraperitoneal fluid. Vasculature: There is some minimal atherosclerotic plaque in the distal abdominal aorta. There is no evidence of an abdominal aortic aneurysm. Lymph nodes: There is no evidence of lymphadenopathy. Urinary bladder: Unremarkable as visualized. Reproductive: Unremarkable as visualized. Bones/joints: Unremarkable. No acute fracture. Soft tissues: Unremarkable. CT/CT abdomen pelvis w con* [id number] IMPRESSION: 1. No acute intra-abdominal abnormality. 2. Minimal basilar ground-glass opacity, dependent atelectasis versus inflammatory disease. Correlation with clinical findings is suggested. COMMENTS: Consistent with the [employer]'s Incidental Findings Committee white paper (J Am Franny Radiol 2018): Any incidental renal lesion less than 1 cm or classified as too small to characterize, or any incidental cystic renal lesion characterized as simple-appearing, is likely benign. No follow-up imaging is recommended for these lesions per consensus recommendations based on imaging criteria. Dictated By: Jayden Cason Signed By: Jayden Cason Signed Date/Time: 04/22/21 0112 DD/ [id number] Discharge Plan Discharge Patient Disposition: Home Clinical Impression: Viral syndrome Condition: Stable Prescriptions: New dicyclomine 20 mg tablet 20 mg PO QID PRN (Reason: abdominal discomfort and diarrhea) Qty: 30 RF: 0 ondansetron 4 mg tablet,disintegrating 4 mg PO Q8H PRN (Reason: nausea and vomiting) Qty: 20 RF: 0 No Action metoprolol succinate 25 mg tablet extended release 24 hr 25 mg PO BID Qty: 60 RF: 6 naproxen 500 mg tablet 500 mg PO BID Qty: 30 RF: 0 albuterol sulfate 90 mcg/actuation HFA aerosol inhaler 2 inh inhalation Q6H PRN (Reason: shortness of breath or wheezing) Qty: 8.5 RF: 0 Discharge Orders: Discharge ED (Routine); Ordered 04/22/21 Ordered By: Chidi Mccain Referrals: Edin Booth MD [Primary Care Provider] - Discharge Diet: Advance as tolerated and Clear Liquid Discharge Activity: Increase activity as tolerated Patient Instructions: Clear Liquid Diet (ED), Viral Syndrome (ED) Activity Restrictions/Additional Instructions: Follow-up with medical provider as directed and 7 to 10 days for evaluation. Take medications as prescribed. Drink plenty of fluids and stay hydrated. Start with a clear liquid diet for the next 24 hours then slowly advance diet as tolerated. Return to the ER or your medical provider if condition worsens. Please read and understand discharge instructions. Thank you for choosing [facility] for your healthcare needs today. Please realize this is an emergency room and that we are providing you with a medical screening exam and this may not be complete and all inclusive of all the testing and or work up that you may need to determine your ailment or severity of your illness. It is very important that you follow up as instructed or that you return to the Emergency Department should you have concerns or if your condition changes or worsens in any way. Coding Level of Care Code ED Radioisotope Production Operator for Estephania Fwd Exam Comprehensive
--- NOTE | 2021-04-22 00:10 | PC.NURSE ---
patient arrival with RLQ pain that started Monday, reports vomiting and diarrhea since then. states when was massaging the area he heard a pop and when she stopped pressure the pain became worse. history of gallbladder removal and pacemaker placement. transported to CT.
[2021-04-22] MEDS: iohexol 300 mg/mL 100 mL Btl IV (00:13)
[2021-04-22 00:15] LABS: Basophils # 0.1 10^3/uL (0.0-0.1); Basophils % 0.9 %; Eosinophils # 0.3 10^3/uL (0.0-0.8); Eosinophils % 4.2 %; Hematocrit 47.6 % (42.0-52.0); Hemoglobin 16.2 g/dL (11.7-16.6); Lymphocytes # 2.5 10^3/uL (0.8-4.8); Lymphocytes % 37.6 %; Mean Corpuscular Hemoglobin 29.7 pg (28.0-34.0); Mean Corpuscular Volume 87.2 fl (80-94); Monocytes # 0.7 10^3/uL (0.2-0.9); Monocytes % 10.4 %; Neutrophils # 3.08 10^3/uL (1.8-7.7); Neutrophils % 46.6 %; Nucleated Red Blood Cells % 0 %; Platelet Count 213 10^3/cmm (130-400); Red Blood Count 5.46 10^6/uL (4.1-5.3); Red Cell Distribution Width 12.6 % (12.1-15.1); White Blood Count 6.6 10^3/uL (4.0-10.0)
[2021-04-22 00:19] VITALS: RESP 18; O2SAT 99
[2021-04-22] MEDS: ondansetron 2 mg/ML SDV 2 mL 4 MG IVP (00:19)
[2021-04-22] MEDS: morphine 4 mg/mL SDV 1 mL IVP (00:19)
[2021-04-22] MEDS: sodium chloride 0.9% 1,000 ML 999 ML IV (00:20)
--- NOTE | 2021-04-22 00:23 | PC.NURSE ---
reminded need for urine. states it may be a while.
[2021-04-22 00:36] LABS: Alanine Aminotransferase 18 U/L (0-41); Albumin Level 4.5 g/dL (3.5-5.2); Alkaline Phosphatase 75 IU/L (40-130); Anion Gap 20.2 (5-19); Aspartate Amino Transferase 17 U/L (0-40); Blood Urea Nitrogen 8 mg/dL (6-20); Carbon Dioxide 21 mmol/L (22-29); Chloride 105 mmol/L (98-107); Globulin 2.6 g/dL (1.3-4.6); Glomerular Filtration Rate 97.2 mL/min (90-130); Glucose 80 mg/dL (65-115); Lipase 15 U/L (13-60); Osmolality Calculated 291 mOsm/kg (285-295); Potassium 4.2 mmol/L (3.5-5.1); Sodium 142 mmol/L (136-145); Total Bilirubin 0.3 mg/dL (0.15-1.2); Total Protein 7.1 g/dL (6.6-8.7)
[2021-04-22 01:23] VITALS: BP 116/74; PULSE 74; RESP 17; TEMP 37; O2SAT 96
== END 2021-04-22 01:25 | disposition home or self-care (01) ==
PROVIDERS: Emergency Provider Physician Assistant; PCP Family Medicine Adult Medicine
DX: B34.9 Viral infection, unspecified (principal); R10.31 Right lower quadrant pain; F17.210 Nicotine dependence, cigarettes, uncomplicated; Z79.1 Long term (current) use of non-steroidal anti-inflammatories (NSAID); R10.819 Abdominal tenderness, unspecified site
CPT/HCPCS: 74177; 80053; 83690; 85025; 96361; 96374; 96375; 99284; 99291; 99292; J2270; J2405; J7030; Q9967

== ENCOUNTER 2021-08-02 09:33 | Emergency (ER) | payer OTHER, SELFPAY ==
[2021-08-02 09:45] VITALS: BP 110/70; PULSE 71; RESP 18; TEMP 36.8; O2SAT 98; BMI 31.2
--- NOTE | 2021-08-02 12:03 | XR_ITS ---
WS: [id number] Exam: XR thoracic spine 3V* [id number] Date/Time of Exam: 08/02/2021 12:10 PM Reason For Exam: pain at top of thoracic area Comparison 09/21/2020. No fracture or dislocation. No significant scoliosis. Very minimal degenerative changes. Normal antony kirk soft tissues. Cardiac pacer leads are noted. XR/XR thoracic spine 3V* [id number] IMPRESSION: 1. Unremarkable T-spine study.
--- NOTE | 2021-08-02 12:04 | XR_ITS ---
WS: [id number] Exam: XR cervical spine 4-5V [id number] Date/Time of Exam: 08/02/2021 12:10 PM Reason For Exam: neck pain Comparison 09/21/2020. No acute fracture or dislocation. There is straightening. Paraspinal soft tissue structures are unrem arkable. The odontoid is intact. Mild spondylosis from C5 to C7. XR/XR cervical spine 4-5V [id number] IMPRESSION: 1. No acute fracture or malalignment. 2. Straightening. Minimal degenerative changes.
--- NOTE | 2021-08-02 12:05 | ED_ITS ---
Documented by User: KRYSTYNA Little 08/02/21 12:59 HPI - Neck Pain/Injury General: Chief Complaint: Neck Pain/Injury Stated Complaint: severe upper back & neck pain Time Seen by Provider: 08/02/21 09:56 History of Present Illness: Patient relates that he has a history of 3 bulging disks in his neck. 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 Got worse Monday and then Monday. Slept and got feeling better and then today he said that when he got up to get out of bed he felt sharp pain between his shoulder blades upper aspect and about the neck and then he passed out(which she says happens when he has severe pain.) And he got up to go to the bathroom and again he had pain base of his neck area and he responds same way. He said he can go to work his neck is feeling better, but he wanted get checked out. Patient denies this being a work comp injury and does not want any work comp involved. Patient denies any numbness or tingling in extremities and has full range of motion of the extremities. Neck is sore. Associated symptoms: Denies headache(s) or nausea Review of Systems Const: Denies: fever(s), chills or body aches Eyes: Denies: eye discomfort ENMT: Denies: throat pain Card: Denies: chest pain Resp: Denies: dyspnea GI: Denies: abdominal pain, nausea or vomiting Musc: Reports: neck pain (History of bulging disc in his neck. Reaggravated by doing heavy lifting) and back pain Skin/Breast: Denies: rash Neuro: Reports: other (Said he had syncopal episode related to his sharp pain. He said this is caceres); Denies: headache(s) Psych: Denies: depression or suicidal ideation [facility] ED PFSH: Medical History (Updated 08/02/21 @ 12:57 by KRYSTYNA Little) Asthma Bronchitis Chronic left shoulder pain Chronic migraine Crushing injury of hand, left Obesity (BMI 30.0-34.9) RHONDA (obstructive sleep apnea) Pacemaker Pacemaker Pre-syncope Seizure Surgical History Hx of cholecystectomy Hx of shoulder surgery Family History Other CAD (coronary artery disease) COPD (chronic obstructive pulmonary disease) Cancer Diabetes Seizure Stroke Social History Quit status (tobacco): has tried quititng Number of times tried to quit tobacco: 10 Second hand smoke exposure: Yes Alcohol intake: current Alcohol intake frequency: holidays/special occasions only Household members: spouse and children Marital status: Current occupational status: disabled Current gender identity: Male Physical Exam Const: COMMON NORMALS: no acute distress, patient oriented x3 and alert HENMT: COMMON NORMALS: normocephalic and external ears normal HEAD & SCALP: normocephalic EXTERNAL EAR: Yes external ears normal Eye: COMMON NORMALS: EOMs intact bilaterally Neck/C-Spine: COMMON NORMALS: no JVD CERVICAL SPINE: Yes cervical ROM normal, Yes Paracervical muscle tenderness, No Paracervical spasm and Yes Trape zius muscle tenderness (Left greater than right) Resp: COMMON NORMALS: normal respiratory effort and No use of accessory muscles Cardio: COMMON NORMALS: no JVD GI: INSPECTION: Yes normal to inspection Extremity: COMMON NORMALS: normal to inspection and full ROM Neuro: COMMON NORMALS: patient oriented x3 SENSORIUM/ORIENTATION: Yes alert OTHER: Public Relations Counselor strength or final numbness and upper extremities. Speech is normal. 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 This happened on and had pain in his neck off and on this weekend. Patient he has a history of 3 bulging disks in his neck. Patient also states that when he has had severe pain in the past he passes out and that is what happened this morning. Said his muscles hurt in his neck. Radiologist is negative for any concerning findings. Patient does have some te nderness of her cervical spinal muscles and lower trapezius area. Full range of motion is upper extremities without any numbness tingling or neurodeficits. Patient asked for note for being off work. Patient is adamant this not a work comp injury. No heavy lifting for next 3 to 4 weeks take medication prescribed he will follow-up primary care provider Lab Data Radiology Impressions Thoracic Spine X-Ray 08/02/21 12:03 IMPRESSION: 1. Unremarkable T-spine study. Cervical Spine X-Ray 08/02/21 12:04 IMPRESSION: 1. No acute fracture or malalignment. 2. Straightening. Minimal degenerative changes. Discharge Plan Discharge Patient Disposition: Home Clinical Impression: Strain of neck muscle Condition: Stable Prescriptions: New prednisone 20 mg tablet 20 mg PO DAILY Qty: 7 0RF cyclobenzaprine 5 mg tablet 5 mg PO TID PRN (Reason: muscle spasm) Qty: 10 0RF Discharge Orders: Discharge ED (Routine); Ordered 08/02/21 Ordered By: Simon Carranza Referrals: Edin Booth MD [Primary Care Provider] - Discharge Diet: Usual diet Discharge Activity: Increase activity as tolerated Patient Instructions: Neck Pain (ED) Activity Restrictions/Additional Instructions: Follow-up with medical provider as directed. Take medications as prescribed. Return to the ER or your medical provider if condition worsens. Please read and understand discharge instructions. If any questions ask please. Alternate heat and ice to neck area. Off work for this week due to injury. Can take [id number] naproxen or ibuprofen to help with inflammation. Stand Alone Forms: Work/School Release Coding Level of Care Code ED Rating Specialist for Chg Fwd Exam Comprehensive Documented by User: Fermín Betancourt DO 08/02/21 16:43 HPI - Neck Pain/Injury General: Chief Complaint: Neck Pain/Injury Stated Complaint: severe upper back & neck pain Time Seen by Provider: 08/02/21 09:56 PFSH ED PFSH: Medical History (Updated 08/02/21 @ 12:57 by KRYSTYNA Little) Asthma Bronchitis Chronic left shoulder pain Chronic migraine Crushing injury of hand, left Obesity (BMI 30.0-34.9) RHONDA (obstructive sleep apnea) Pacemaker Pacemaker Pre-syncope Seizure Surgical History Hx of cholecystectomy Hx of shoulder surgery Family History Other CAD (coronary artery disease) COPD (chronic obstructive pulmonary disease) Cancer Diabetes Seizure Stroke Social History Quit status (tobacco): has tried quititng Number of times tried to quit tobacco: 10 Second hand smoke exposure: Yes Alcohol intake: current Alcohol intake frequency: holidays/special occasions only Household members: spouse and children Marital status: Current occupational status: disabled Current gender identity: Male Course Vital Signs: Vital signs: Vital Signs Temperature 98.0 F 08/02/21 13:10 Pulse Rate 70 08/02/21 13:10 Respiratory Rate 16 08/02/21 13:10 Blood Pressure 115/61 08/02/21 13:10 Pulse Oximetry 98 08/02/21 13:10 MDM - Neck Pain/Injury Medical Decision Making Patient 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 This happened on and had pain in his neck off and on this weekend. Patient he has a history of 3 bulging disks in his neck. Patient also states that when he has had severe pain in the past he passes out and that is what happened this morning. Said his muscles hurt in his neck. Radiologist is negative for any concerning findings. Patient does have some tenderness of her cervical spinal muscles and lower trapezius area. Full range of motion is upper extremities without any numbness tingling or neurodeficits. Patient asked for note for being off work. Patient is adamant this not a work comp injury. No heavy lifting for next 3 to 4 weeks take medication prescribed he will follow-up primary care provider Chart reviewed and patient discussed with midlevel. Agree with assessment and plan. Lab Data Radiology Impressions Thoracic Spine X-Ray 08/02/21 12:03 IMPRESSION: 1. Unremarkable T-spine study. Cervical Spine X-Ray 08/02/21 12:04 IMPRESSION: 1. No acute fracture or malalignment. 2. Straightening. Minimal degenerative changes. Discharge Plan Discharge Patient Disposition: Home Clinical Impression: Strain of neck muscle Condition: Stable Prescriptions: New prednisone 20 mg tablet 20 mg PO DAILY Qty: 7 0RF cyclobenzaprine 5 mg tablet 5 mg PO TID PRN (Reason: muscle spasm) Qty: 10 0RF Discharge Orders: Discharge ED (Routine); Ordered 08/02/21 Ordered By: Simon Carranza Referrals: Edin Booth MD [Primary Care Provider] - Discharge Diet: Usual diet Discharge Activity: Increase activity as tolerated Patient Instructions: Neck Pain (ED) Activity Restrictions/Additional Instructions: Follow-up with medical provider as directed. Take medications as prescribed. Return to the ER or your medical provider if condition worsens. Please read and understand discharge instructions. If any questions ask please. Alternate heat and ice to neck area. Off work for this week due to injury. Can take [id number] naproxen or ibuprofen to help with inflammation. Stand Alone Forms: Work/School Release Coding Level of Care Code ED Rating Specialist for Estephania Fwd Exam Comprehensive
[2021-08-02 13:09] VITALS: BP 115/61; PULSE 70; RESP 16; TEMP 36.7; O2SAT 98
[2021-08-02 13:10] VITALS: BP 115/61; PULSE 70; RESP 16; TEMP 36.7; O2SAT 98
== END 2021-08-02 13:05 | disposition home or self-care (01) ==
PROVIDERS: Emergency Provider Nurse Practitioner Family; PCP Family Medicine Adult Medicine
DX: S16.1XXA Strain of muscle, fascia and tendon at neck level, initial encounter (principal); X50.0XXA Overexertion from strenuous movement or load, initial encounter
CPT/HCPCS: 72050; 72072; 99283

== ENCOUNTER 2022-02-02 13:16 | Emergency (ER) | payer SELFPAY ==
[2022-02-02 13:22] VITALS: BP 126/76; PULSE 83; RESP 16; TEMP 36.6; O2SAT 97; BMI 32.3
[2022-02-02 13:37] VITALS: BP 115/74; PULSE 91; RESP 18; O2SAT 96
--- NOTE | 2022-02-02 13:47 | XRR_ITS ---
PROCEDURE INFORMATION: Exam: XR Chest Exam date and time: 02/02/2022 1:55 PM Age: 36 years old Clinical indication: Shortness of breath; Prior surgery; Surgery type: Pacemaker; Additional info: SOB TECHNIQUE: Imaging protocol: Radiologic exam of the chest. Views: 1 view. COMPARISON: CR XR chest 2V* [id number] 08/20/2020 6:39 PM FINDINGS: Tubes, catheters and devices: Right chest wall dual chamber cardiac device remains in place. Lungs: The lung bases are suboptimally assessed due to technique however the upper lungs are clear of focal consolidation. There is an azygous lobe, normal variant. Pleural spaces: Unremarkable. No pleural effusion. No pneumothorax. Heart/Mediastinum: Cardiac silhouette appears normal in size. No obvious vascular congestion. Bones/joints: No acute osseous findings. Other findings: Single view was submitted. XR/XR chest 1V portable [id number] IMPRESSION: No acute findings.
[2022-02-02 14:32] LABS: SARS Covid-2 Antigen negative (Negative)
[2022-02-02 14:34] LABS: Influenza A by IFA negative (Negative); Influenza B by IFA negative (Negative)
[2022-02-02 14:57] VITALS: BP 119/80; PULSE 71; RESP 16; O2SAT 96
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
== END 2022-02-02 15:21 | disposition home or self-care (01) ==
PROVIDERS: Emergency Provider Registered Nurse; PCP Family Medicine Adult Medicine
DX: J06.9 Acute upper respiratory infection, unspecified (principal); Z20.822 Contact with and (suspected) exposure to COVID-19; Z95.0 Presence of cardiac pacemaker; F17.210 Nicotine dependence, cigarettes, uncomplicated
CPT/HCPCS: 71045; 87426; 87804; 99283

== ENCOUNTER 2022-03-01 20:07 | Inpatient (IN) | payer MEDICAID, SELFPAY ==
[2022-03-01] VITALS (12 sets, daily range): BP systolic 102–129; BP diastolic 64–81; PULSE 60–91; RESP 12–18; TEMP 36.6–36.7; O2SAT 96–99
--- NOTE | 2022-03-01 20:37 | CTR_ITS ---
PROCEDURE INFORMATION: Exam: CT Head Without Contrast Exam date and time: 03/01/2022 8:39 PM Age: 36 years old Clinical indication: Stroke-like symptoms; Syncope/collapse; Lt lower extremity weakness; Additional info: Patient had sudden syncopal episode while at work and now C/O of weakness/numbness to left lower extremity. History of CVA. TECHNIQUE: Imaging protocol: Computed tomography of the head without contrast. Radiation optimization: All CT scans at this facility use at least one of these dose optimization techniques: automated exposure control; mA and/or kV adjustment per patient size (includes targeted exams where dose is matched to clinical indication); or iterative reconstruction. Other technique: STROKE PROTOCOL was implemented. COMPARISON: CT head wo con* [id number] 01/24/2020 8:35 PM RADIATION DOSE METRICS: Total DLP (mGy-cm): 1065.28 FINDINGS: Brain: Normal. No hemorrhage. Unremarkable white matter. No mass effect. Cerebral ventricles: No ventriculomegaly. Paranasal sinuses: Visualized sinuses are unremarkable. No fluid levels. Mastoid air cells: Visualized mastoid air cells are well aerated. Bones/joints: Unremarkable. No acute fracture. Soft tissues: Unremarkable. CT/CT head thrombolytic [id number] IMPRESSION: No acute intracranial abnormality. ASSESSMENT: ASPECTS ([place] Stroke Program Early CT Score) is 10.
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
[2022-03-01 20:46] LABS: Basophils # 0.1 10^3/uL (0.0-0.1); Basophils % 0.6 %; Eosinophils # 0.3 10^3/uL (0.0-0.8); Eosinophils % 3.3 %; Hematocrit 44.8 % (42.0-52.0); Hemoglobin 15.1 g/dL (11.7-16.6); Lymphocytes # 3.3 10^3/uL (0.8-4.8); Mean Corpuscular HGB Conc 33.7 g/dL (30.0-36.0); Mean Corpuscular Hemoglobin 29.8 pg (28.0-34.0); Mean Corpuscular Volume 88.5 fl (80-94); Mean Platelet Volume 10.1 fL (7.4-10.4); Monocytes # 0.6 10^3/uL (0.2-0.9); Monocytes % 7.1 %; Neutrophils # 4.77 10^3/uL (1.8-7.7); Neutrophils % 52.8 %; Nucleated Red Blood Cells % 0 %; Platelet Count 231 10^3/cmm (130-400); Red Blood Count 5.06 10^6/uL (4.1-5.3)
--- NOTE | 2022-03-01 20:52 | CTR_ITS ---
PROCEDURE INFORMATION: Exam: CTA Head With Contrast, Arteriography Exam date and time: 03/01/2022 9:11 PM Age: 36 years old Clinical indication: Stroke-like symptoms; Lt lower extremity weakness; Additional info: CVA TECHNIQUE: Imaging protocol: Computed tomographic angiography of the head with contrast. Exam focused on the arteries. 3D rendering (Not supervised by radiologist): MIP and/or 3D reconstructed images were created by the technologist. Radiation optimization: All CT scans at this facility use at least one of these dose optimization techniques: automated exposure control; mA and/or kV adjustment per patient size (includes targeted exams where dose is matched to clinical indication); or iterative reconstruction. Contrast material: OMNI 350; Contrast volume: 100 ml; Contrast route: INTRAVENOUS (IV); COMPARISON: CT angio headneck* [id number] 01/24/2020 8:40 PM RADIATION DOSE METRICS: Total DLP (mGy-cm): 468.92 FINDINGS: ANTERIOR CIRCULATION: Right internal carotid artery: Intracranial segment is patent with no significant stenosis. No aneurysm. Right middle cerebral artery: No occlusion or significant stenosis. No aneurysm. Right anterior cerebral artery: No occlusion or significant stenosis. No aneurysm. Left internal carotid artery: Intracranial segment is patent with no significant stenosis. No aneurysm. Left middle cerebral artery: No occlusion or significant stenosis. No aneurysm. Left anterior cerebral artery: No occlusion or significant stenosis. No aneurysm. POSTERIOR CIRCULATION: Right vertebral artery: No occlusion or significant stenosis. No aneurysm. Left vertebral artery: No occlusion or significant stenosis. No aneurysm. Basilar artery: No occlusion or significant stenosis. No aneurysm. Right posterior cerebral artery: No occlusion or significant stenosis. No aneurysm. Left posterior cerebral artery: No occlusion or significant stenosis. No aneurysm. Brain: No definite mass, mass effect, or midline shift. Cerebral ventricles: No ventriculomegaly. Bones/joints: Unremarkable. No acute fracture. Soft tissues: Unremarkable. PROCEDURE INFORMATION: Exam: CTA Neck With Contrast Exam date and time: 03/01/2022 9:11 PM Age: 36 years old Clinical indication: Stroke-like symptoms; Lt lower extremity weakness; Additional info: CVA TECHNIQUE: Imaging protocol: Computed tomographic angiography of the neck with contrast. 3D rendering (Not supervised by radiologist): MIP and/or 3D reconstructed images were created by the technologist. Radiation optimization: All CT scans at this facility use at least one of these dose optimization techniques: automated exposure control; mA and/or kV adjustment per patient size (includes targeted exams where dose is matched to clinical indication); or iterative reconstruction. Contrast material: OMNI 350; Contrast volume: 100 ml; Contrast route: INTRAVENOUS (IV); COMPARISON: CT angio headneck* [id number] 01/24/2020 8:40 PM RADIATION DOSE METRICS: Total DLP (mGy-cm): 468.92 FINDINGS: Right common carotid artery: No stenosis. No dissection or occlusion. Right internal carotid artery: No stenosis of the extracranial segment. No dissection or occlusion. Right external carotid artery: No occlusion or stenosis of the origin. Left common carotid artery: No stenosis. No dissection or occlusion. Left internal carotid artery: No stenosis of the extracranial segment. No dissection or occlusion. Left external carotid artery: No occlusion or stenosis of the origin. Right vertebral artery: No stenosis. No dissection or occlusion. Left vertebral artery: No stenosis. No dissection or occlusion. Soft tissues: Normal. No significant soft tissue swelling. Bones/joints: No acute fracture. Lungs: Azygos fissure. Other findings: Mild emphysema. CT/CT angio headneck* [id number] IMPRESSION: No large vessel stenosis or occlusion. IMPRESSION: No large vessel occlusion or stenosis. REFERENCES: NASCET CRITERIA. The degree of stenosis in the cervical segment of the internal carotid artery is based on NASCET criteria. Normal is no stenosis. Mild is less than 50% stenosis. Moderate is 50-69% stenosis. Severe is 70% to 99% stenosis. Total occlusion is no detectable patent lumen.
--- NOTE | 2022-03-01 20:52 | ECG_ITS ---
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 Measurements Intervals [place] Rate: 64 P: 78 OR: 155 QRS: 76 QRSD: 86 T: 63 QT: 394 QTc: 408 Interpretive Statements ELECTRONIC ATRIAL PACEMAKER Compared to ECG 04/23/2020 20:07:52 No significant changes Electronically Signed On 03-04-2022 6:30:38 NEWSPAPER DELIVERY DRIVER by Easton Silveira M.D. [id number]
[2022-03-01 20:55] LABS: INR 0.99 (0.8-1.2)
[2022-03-01 21:01] LABS: Alanine Aminotransferase 23 U/L (0-41); Albumin Level 4.4 g/dL (3.5-5.2); Alkaline Phosphatase 64 U/L (40-130); Anion Gap 13.9 (5-19); Aspartate Amino Transferase 19 U/L (0-40); Blood Urea Nitrogen 13 mg/dL (6-20); Calcium 9.5 mg/dL (8.5-10.5); Carbon Dioxide 26 mmol/L (22-29); Chloride 103 mmol/L (98-107); Globulin 3.3 g/dL (1.3-4.6); Glomerular Filtration Rate 85.5 mL/min (90-130); Glucose 81 mg/dL (65-115); Osmolality Calculated 287 mOsm/kg (285-295); Potassium 3.9 mmol/L (3.5-5.1); Sodium 139 mmol/L (136-145); Total Bilirubin 0.2 mg/dL (0.15-1.2); Total Protein 7.7 g/dL (6.6-8.7)
--- NOTE | 2022-03-01 21:06 | PC.NURSE ---
Late Note: patient upon arrival and assessment was immediately taken to CT scan; orders for activase given and prepared; bolus for 91.8KG patient 8.3mg given at 20:59; waste of 17.4mg; infusion of 74.3mg/hr started @2100.
--- NOTE | 2022-03-01 21:08 | PC.NURSE ---
patient transported to CT scan for angio
[2022-03-01 21:14] LABS: Glucose Point of Care 86 mg/dL (70-110)
[2022-03-01] MEDS: iohexol 350 mg/mL 500 mL Btl (per mL) IV (21:21)
[2022-03-01 21:39] LABS: Add Urine Microscopic? NO; Charge for UA Resulting for Rev
[2022-03-01 21:44] LABS: Bilirubin Urine Neg (Negative); Blood Urine Neg (Negative); Glucose Urine UA Norm (Normal); Ketones Urine 1+ (Negative); Leukocyte Esterase Urine Negative (Negative); Nitrate Urine Negative (Negative); Protein Urine Neg (Negative); Specific Gravity, Urine 1.015 (1.005-1.030); Urine Appearance Clear (CLEAR); Urine Color Yellow (Yellow); Urobilinogen Urine 1 mg/dL (Negative); pH Urine 7 (5-7)
[2022-03-01] MEDS: sodium chloride 0.9% (100 ml) 100 ML 73.4 ML (21:47)
[2022-03-01 21:50] LABS: Amphetamines Screen Urine Negative (Negative); Barbiturates Screen Urine Negative (Negative); Benzodiazepines Screen Urine Negative (Negative); Cocaine Screen Urine Negative (Negative); Opiate Screen Urine Negative (Negative); PCP Screen Urine Negative (Negative); THC Screen Urine Positive (Negative)
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
[2022-03-02] VITALS (33 sets, daily range): BP systolic 97–131; BP diastolic 45–82; PULSE 60–82; RESP 10–20; TEMP 36.7–36.9; O2SAT 94–99
--- NOTE | 2022-03-02 03:24 | PC.NURSE ---
0320 order for bed alarm noted, bed alarm on patient's bed not functioning; charge nurse, ROSELINE Shah, notified, will continue to monitor
[2022-03-02 05:48] LABS: Basophils % 0.3 %; Eosinophils # 0.3 10^3/uL (0.0-0.8); Eosinophils % 2.9 %; Hematocrit 40.5 % (42.0-52.0); Hemoglobin 13.6 g/dL (11.7-16.6); Lymphocytes # 2.8 10^3/uL (0.8-4.8); Lymphocytes % 30.3 %; Mean Corpuscular HGB Conc 33.6 g/dL (30.0-36.0); Mean Corpuscular Hemoglobin 29.8 pg (28.0-34.0); Mean Corpuscular Volume 88.6 fl (80-94); Mean Platelet Volume 10.2 fL (7.4-10.4); Monocytes # 0.6 10^3/uL (0.2-0.9); Monocytes % 6.8 %; Neutrophils # 5.43 10^3/uL (1.8-7.7); Neutrophils % 59.5 %; Nucleated Red Blood Cells % 0 %; Platelet Count 207 10^3/cmm (130-400); Red Blood Count 4.57 10^6/uL (4.1-5.3); White Blood Count 9.1 10^3/uL (4.0-10.0)
--- NOTE | 2022-03-02 06:00 | USCV_ITS ---
Adrián Nick Age: 36 Gender: M : 1985 Exam Date: 03/02/2022 01:26 Ordering Phys: Milena Chu MD Technologist: MARTI Exam Location: [facility] [place] Indication: stroke History of pacer since 2016. BP: 102 / 65 HR: 63 Rhythm: Sinus Technical Quality: Adequate MEASUREMENTS (Male / Female) Normal Values 2D ECHO LV Diastolic Diameter PLAX 4.3 cm 4.2 - 5.9 / 3.9 - 5.3 cm LV Systolic Diameter PLAX 2.6 cm IVS Diastolic Thickness 1.3 cm 0.6 - 1.0 / 0.6 - 0.9 cm IVS Systolic Thickness 1.6 cm LVPW Diastolic Thickness 1.3 cm 0.6 - 1.0 / 0.6 - 0.9 cm LVPW Systolic Thickness 1.5 cm LVOT Diameter 2.0 cm LV Ejection Fraction 2D Teich 68.9 % LV Ejection Fraction MOD 2C 66.4 % LV Ejection Fraction 2C AL 67.7 % LA Diameter 4.0 cm LA Width 3.2 cm LA Height 5.3 cm RA Width 3.6 cm RA Height 3.6 cm Aorta at Sinotubular Diameter 2.8 cm IVC Diameter 2.1 cm M-MODE Aortic Annulus Diameter 3.1 cm LA Ao Ratio MM 1.2 MV E Point Septal Separation 0.1 cm DOPPLER AV Peak Velocity 97.0 cm/s LVOT Peak Velocity 86.0 cm/s AV Area Cont Eq vti 2.6 cm squared AV Area Cont Eq pk 2.8 cm squared MV Area PHT 3.1 cm squared Mitral E to A Ratio 1.7 MV E' Velocity 45.5 cm/s Mitral E to MV E' Ratio 7.7 Mitral E to LV E' Lateral Ratio 6.0 Mitral E to LV E' Septal Ratio 10.7 TV Peak E Velocity 60.0 cm/s PV Peak Velocity 100.0 cm/s RV Acceleration Time 0.1 s RV Ejection Time 0.4 s RV AcT/ET 0.3 FINDINGS Left Ventricle Normal left ventricular size, systolic function and wall thickness, with no regional wall motion abnormalities. Normal left ventricular wall thickness. Normal diastolic filling pattern. Right Ventricle The right ventricle is normal in size and function. Catheter/pacemaker wire visualized in the right ventricle. Right Atrium The right atrium is normal in size. Left Atrium Mildly increased left atrial size. Mitral Valve Structurally normal mitral valve without significant stenosis or prolapse. There is no mitral regurgitation. Aortic Valve Structurally normal aortic valve without significant sclerosis or stenosis. There is no aortic regurgitation. Tricuspid Valve Structurally normal tricuspid valve without significant stenosis or regurgitation. Pulmonary artery systolic pressure is normal. Pulmonic Valve Structurally normal pulmonic valve without significant stenosis. There is no pulmonic regurgitation. Pericardium Normal pericardium without effusion. Aorta Normal ascending aorta dimension. IVC The inferior vena cava appears normal. CONCLUSIONS Normal left ventricular size, systolic function and wall thickness, with no regional wall motion abnormalities. Normal left ventricular wall thickness. Normal diastolic filling pattern. The right ventricle is normal in size and function. Catheter/pacemaker wire visualized in the right ventricle. Broderick Gonzalez MD (Electronically Signed) Final Date: 02 March 2022 07:07 S
[2022-03-02 06:01] LABS: Estmated Average Glucose 88; Hemoglobin A1C 4.7 % (4.0-6.0)
[2022-03-02 06:07] LABS: Alanine Aminotransferase 20 U/L (0-41); Albumin Level 4.1 g/dL (3.5-5.2); Alkaline Phosphatase 58 U/L (40-130); Anion Gap 15.2 (5-19); Aspartate Amino Transferase 17 U/L (0-40); Blood Urea Nitrogen 12 mg/dL (6-20); Calcium 9.2 mg/dL (8.5-10.5); Carbon Dioxide 25 mmol/L (22-29); Chloride 105 mmol/L (98-107); Chol HDL Ratio 6.12 mg/dL (1.0-5.00); Cholesterol 159 mg/dL (0-200); Globulin 2.8 g/dL (1.3-4.6); Glomerular Filtration Rate 110.7 mL/min (90-130); Glucose 82 mg/dL (65-115); HDL Cholesterol 26 mg/dL (60-100); LDL Cholesterol Calculated 112 mg/dL (50-129); LDL HDL Ratio 4.31 RATIO (0.00-3.22); Osmolality Calculated 291 mOsm/kg (285-295); Potassium 4.2 mmol/L (3.5-5.1); Sodium 141 mmol/L (136-145); Total Bilirubin 0.5 mg/dL (0.15-1.2); Total Protein 6.9 g/dL (6.6-8.7); Triglycerides 103 mg/dL (0-150)
--- NOTE | 2022-03-02 07:57 | PC.PHAR ---
pt states he takes care of his own medications-pt states he takes no rx medications or otc meds-pt states he has a albuterol inhaler he uses prn ext med history shows last filled 04/23/21 25d/s-09/10/21 wrote rx for metoprolol tartrate 25mg bid for palpitations pt states he never got
--- NOTE | 2022-03-02 11:31 | PC.CHAP ---
Pastoral Care Encounter/Spiritual Assessment Type of Contact [] Declined it business systems analyst visit [] Patient/Family/Request visit [] Outpatient visit [] Follow-up visit [] Physician referral [] Code/Alert [x] Routine visit [] Staff referral [] Actively dying [x] Patient sleeping [] Family support [] [] Out of room [] Palliative care [] [] Receiving care in room [] Pre-surgical visit [] Trauma [] Long length of stay [x] ICU visit [] Other: Relational/Emotional Strength [] Patient feels connected with others/family/visitors/staff [] Distress [] Loneliness/isolation [] Abandonment Spirituality of Patient [] Person of Cris [] Attends Denominational of their Cris [] Believes in Prayer [] Reads Bible or Buddhist materials [] There are Spiritual issues to be addressed Field Manager Interventions [x] Prayer [] Active listening [] Non-anxious presence [] Spiritual/emotional support [] Crisis/trauma care [] Spiritual counseling [] Bereavement support [] Provided bereavement packet [] Provided Bible/devotional materials [] Provided toy/stuffed animal, coloring book to patient or family member [] Provided Communion [] Anointing/[place] [] Salvation [x] Completed spiritual assessment [] Other: Impact on Illness or Injury [] Angry [] Fearful [] Anxious [] Often cries [] Exhaustion [] Unable to work [] Unable to attend holiness [] Unable to walk/stand [] Unable to read [] Unable to drive [] Unable to eat/drink [] Unable to sleep [] Unable to be with family [] Patient intubated [] Other: Summary Time spent with patient
--- NOTE | 2022-03-02 12:28 | P.PN_ITS ---
Subjective Subjective: Patient is stating that he has been having seizures quite often he has not seen his neurologist in [place] I will go and put him on Keppra Vitals/I&O/Wt Last Vital Signs Temp 98.5 F 03/02/22 04:00 Pulse 60 03/02/22 06:00 Resp 20 H 03/02/22 06:00 BP 97/69 03/02/22 06:00 Pulse Ox 95 03/02/22 06:00 O2 Del Method 03/02/22 04:00 03/01/22 03/02/22 03/02/22 22:59 06:59 14:59 Intake Total 100 / 100 0 / 100 Output Total 500 / 500 Balance 100 / 100 -500 / -400 Weight last 48 hrs Weight 88.5 kg Weight 92 kg Physical Exam Narrative: NIH 0 Nonfocal neuro exam S1, S2 Hemodynamically stable Abdomen soft Doing well on room air No active focal deficit noted Unkept appearance Multiple skin tattoos Urinary Catheter Management: Allen: Cath Placed During This Visit: yes Reason for Continuing Indwelling Catheter: Acute Urinary Retention or Obst ruction Urinary Catheter Date of Insertion: 03/01/22 Urinary Catheter Time of Insertion: 21:20 Data : 03/02/22 04:23 03/02/22 04:23 A&P Assessment and plan (1) Cerebrovascular accident: (2) Pacemaker: (3) Observed seizure-like activity: (4) Multiple substance abuse: (5) RHONDA (obstructive sleep apnea): (6) Generalized anxiety disorder: Plan Post ictal state? Add Keppra Status post tPA I would not start aspirin until tomorrow Plan to discharge him tomorrow Patient is doing well Start regular diet DVT prophylaxis contraindicated until tomorrow Full code Attestations Medical Necessity Statement*: Continue medical management Time Spent in Patient Care: 30 Coding Level of Care Code Acute Inkjet Operator for g Fwd Diagnoses Cerebrovascular accident I63.9 Pacemaker Z95.0 Observed seizure-like activity R56.9 Multiple substance abuse F19.10 RHONDA (obstructive sleep apnea) G47.33 Generalized anxiety disorder F41.1
--- NOTE | 2022-03-02 13:30 | PC.PT ---
PT evaluation on hold for tPA protocol; needing to wait after 8 PM today, patient will be seen tomorrow 03/03.
--- NOTE | 2022-03-02 13:37 | PC.OT ---
HOLD OT EVALUATION DUE TO TPA ADMINISTRATION. WILL ATTEMPT EVALUATION TOMORROW.
[2022-03-02] MEDS: levETIRAcetam 500 mg Tablet 750 MG PO ×2 (13:39→20:05)
[2022-03-02] MEDS: atorvastatin 40 mg Tablet 20 MG PO (20:05)
--- NOTE | 2022-03-02 21:00 | CTR_ITS ---
PROCEDURE INFORMATION: Exam: CT Head Without Contrast Exam date and time: 03/02/2022 8:46 PM Age: 36 years old Clinical indication: Other: Tpa f/u; Patient HX: 24 hour f/u post tpa admin. ; Additional info: 24 hr post tpa TECHNIQUE: Imaging protocol: Computed tomography of the head without contrast. Radiation optimization: All CT scans at this facility use at least one of these dose optimization techniques: automated exposure control; mA and/or kV adjustment per patient size (includes targeted exams where dose is matched to clinical indication); or iterative reconstruction. COMPARISON: CT head thrombolytic [id number] 03/01/2022 8:39 PM RADIATION DOSE METRICS: Total DLP (mGy-cm): 1214.38 FINDINGS: Brain: Normal. No hemorrhage. Unremarkable white matter. No mass effect. Cerebral ventricles: No ventriculomegaly. Paranasal sinuses: Visualized sinuses are unremarkable. No fluid levels. Mastoid air cells: Visualized mastoid air cells are well aerated. Bones/joints: Unremarkable. No acute fracture. Soft tissues: Unremarkable. CT/CT head wo con* [id number] IMPRESSION: No acute intracranial abnormality.
[2022-03-03] VITALS (14 sets, daily range): BP systolic 91–119; BP diastolic 47–80; PULSE 60–82; RESP 12–23; TEMP 36.8–37.2; O2SAT 93–98
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
[2022-03-03] MEDS: levETIRAcetam 500 mg Tablet 750 MG PO (08:26)
--- NOTE | 2022-03-03 09:30 | PC.CHAP ---
Pastoral Care Encounter/Spiritual Assessment Type of Contact [] Declined dyslexia teacher visit [] Patient/Family/Request visit [] Outpatient visit [] Follow-up visit [] Physician referral [] Code/Alert [x] Routine visit [] Staff referral [] Actively dying [] Patient sleeping [] Family support [] [] Out of room [] Palliative care [] [] Receiving care in room [] Pre-surgical visit [] Trauma [] Long length of stay [x] ICU visit [] Other: Relational/Emotional Strength [] Patient feels connected with others/family/visitors/staff [] Distress [] Loneliness/isolation [] Abandonment Spirituality of Patient [] Person of Cris [] Attends Yazidi of their Cris [] Believes in Prayer [] Reads Bible or Religion materials [] There are Spiritual issues to be addressed Environmental Services Coordinator Interventions x[] Prayer [] Active listening [] Non-anxious presence [] Spiritual/emotional support [] Crisis/trauma care [] Spiritual counseling [] Bereavement support [] Provided bereavement packet [] Provided Bible/devotional materials [] Provided toy/stuffed animal, coloring book to patient or family member [] Provided Communion [] Anointing/[place] [] Salvation [x] Completed spiritual assessment [] Other: Impact on Illness or Injury [] Angry [] Fearful [] Anxious [] Often cries [] Exhaustion [] Unable to work [] Unable to attend episcopalian [] Unable to walk/stand [] Unable to read [] Unable to drive [] Unable to eat/drink [] Unable to sleep [] Unable to be with family [] Patient intubated [] Other: Summary Time spent with patient patientn doing better says ready to go home
[2022-03-03 09:37] LABS: CENTROMERE B ANTIBODY <1.0 NEG AI (<1.0 NEG); JO-1 ANTIBODY <1.0 NEG AI (<1.0 NEG); RNP ANTIBODY <1.0 NEG AI (<1.0 NEG); SCL-70 ANTIBODY <1.0 NEG AI (<1.0 NEG); SJOGREN'S ANTIBODY (SS-A) <1.0 NEG AI (<1.0 NEG); SM ANTIBODY <1.0 NEG AI (<1.0 NEG); SS-B <1.0 NEG AI (<1.0 NEG)
--- NOTE | 2022-03-03 11:13 | PC.OT ---
OT EVALUATION ORDERS RECEIVED. OT EVALUATION ATTEMPTED. NURSING REPORTS THAT PATIENT IS IN PROCESS OF D/C AND HAS NO DEFICITS AT THIS TIME.
--- NOTE | 2022-03-03 11:48 | PC.NURSE ---
1040 Verbal discharge stroke education provided to patient and family at bedside. Written education provided. Anticoagulant therapy education given. Medications reviewed with patient and family. Meds to beds delivered. Patient and family had no questions at time of discharge. 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
[2022-03-03 13:08] LABS: COMPLEMENT COMPONENT C3C 124 mg/dL (82-185); COMPLEMENT COMPONENT C4C 21 mg/dL (15-53)
[2022-03-03 13:18] LABS: THYROID PEROXIDASE ANTIBODIES <1 IU/mL (<9)
[2022-03-04 15:58] LABS: COMPLEMENT, TOTAL (CH50) >60 U/mL (31-60)
[2022-03-05 07:18] LABS: ANA PATTERN Nuclear, Speckled; ANA SCREEN, IFA POSITIVE (NEGATIVE); ANA TITER 1:40 titer
[2022-03-05 15:48] LABS: DNA AB (DS) CRITHIDIA,IFA NEGATIVE (NEGATIVE)
== END 2022-03-03 10:45 | disposition home or self-care (01) | DRG 62 ==
LOC: ER 03-02 00:43 → ICU 03-02 01:51
PROVIDERS: Admitting Provider Student in an Organized Health Care Education/Training Program; Emergency Provider Emergency Medicine; Visit Provider Student in an Organized Health Care Education/Training Program
DX: I63.9 Cerebral infarction, unspecified (principal); G81.94 Hemiplegia, unspecified affecting left nondominant side; R29.810 Facial weakness; R47.81 Slurred speech; R29.705 NIHSS score 5; G43.709 Chronic migraine without aura, not intractable, without status migrainosus; G47.33 Obstructive sleep apnea (adult) (pediatric); Z82.3 Family history of stroke; Z82.49 Family history of ischemic heart disease and other diseases of the circulatory system; F31.9 Bipolar disorder, unspecified; F41.1 Generalized anxiety disorder; Z95.0 Presence of cardiac pacemaker; G89.29 Other chronic pain; M25.512 Pain in left shoulder; F17.210 Nicotine dependence, cigarettes, uncomplicated; F19.10 Other psychoactive substance abuse, uncomplicated; R56.9 Unspecified convulsions
CPT/HCPCS: 36415; 36416; 51702; 70450; 70496; 70498; 80053; 80061; 80306; 81003; 82962; 83036; 85025; 85610; 85730; 86160; 86162; 86235; 86255; 86376; 92523; 92610; 93005; 93306; 96374; 99285; 99291; J2997; Q9967

== ENCOUNTER 2022-04-19 03:42 | Emergency (ER) | payer BC, MEDICAID, SELFPAY ==
[2022-04-19 03:52] VITALS: BP 116/79; PULSE 75; RESP 14; TEMP 37; O2SAT 97; BMI 31.5
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
--- NOTE | 2022-04-19 04:06 | CTR_ITS ---
PROCEDURE INFORMATION: Exam: CT Head Without Contrast Exam date and time: 04/19/2022 4:22 AM Age: 36 years old Clinical indication: Stroke-like symptoms; Left facial droop; Lt lower extremity weakness TECHNIQUE: Imaging protocol: Computed tomography of the head without contrast. Radiation optimization: All CT scans at this facility use at least one of these dose optimization techniques: automated exposure control; mA and/or kV adjustment per patient size (includes targeted exams where dose is matched to clinical indication); or iterative reconstruction. Other technique: STROKE PROTOCOL was implemented. COMPARISON: CT head wo con* [id number] 03/02/2022 8:46 PM RADIATION DOSE METRICS: Total DLP (mGy-cm): 1096.58 FINDINGS: Brain: There is no evidence of intracranial hemorrhage. No mass effect or midline shift. There is no brain edema. Unremarkable white matter. Cerebral ventricles: The ventricles and sulci are appropriate for the patient's age. Paranasal sinuses: There are no air-fluid levels. Mastoid air cells: The visualized mastoid air cells are well aerated. Bones/joints: No acute fracture. Soft tissues: Unremarkable. CT/CT head wo con* [id number] IMPRESSION: No acute findings. ASSESSMENT: ASPECTS ([place] Stroke Program Early CT Score) is 10.
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
--- NOTE | 2022-04-19 04:15 | ECG_ITS ---
[facility] Test Date: 2022-04-19 Pat Name: Adrián Nick Department: Room: Gender: Male [employer] Teacher: : 1985 Requested By: Alexander Robbins Order Number: [id number] Priscila MD: Cheri Cardenas M.D. Measurements Intervals Given Rate: 61 P: 82 OH: 154 QRS: 63 QRSD: 84 T: 77 QT: 395 QTc: 398 Interpretive Statements ELECTRONIC ATRIAL PACEMAKER ABNORMAL RHYTHM ECG Compared to ECG 03/01/2022 20:52:38 No significant changes Electronically Signed On 04-19-2022 20:24:59 [employer]EST FIRE OFFICER by Cheri Cardenas M.D. [id number]
[2022-04-19 04:21] LABS: Basophils # 0.1 10^3/uL (0.0-0.1); Basophils % 0.6 %; Eosinophils # 0.3 10^3/uL (0.0-0.8); Eosinophils % 3.6 %; Hematocrit 43.6 % (42.0-52.0); Hemoglobin 14.9 g/dL (11.7-16.6); Lymphocytes # 3.2 10^3/uL (0.8-4.8); Lymphocytes % 38.1 %; Mean Corpuscular HGB Conc 34.2 g/dL (30.0-36.0); Mean Corpuscular Hemoglobin 29.8 pg (28.0-34.0); Mean Corpuscular Volume 87.2 fl (80-94); Mean Platelet Volume 10.3 fL (7.4-10.4); Monocytes # 0.7 10^3/uL (0.2-0.9); Monocytes % 8.6 %; Neutrophils # 4.12 10^3/uL (1.8-7.7); Nucleated Red Blood Cells % 0 %; Platelet Count 217 10^3/cmm (130-400); White Blood Count 8.4 10^3/uL (4.0-10.0)
[2022-04-19 04:36] LABS: INR 1.02 (0.8-1.2)
[2022-04-19 04:42] LABS: Alanine Aminotransferase 23 U/L (0-41); Albumin Level 4.1 g/dL (3.5-5.2); Alkaline Phosphatase 65 U/L (40-130); Anion Gap 14.6 (5-19); Aspartate Amino Transferase 15 U/L (0-40); Blood Urea Nitrogen 8 mg/dL (6-20); Calcium 8.8 mg/dL (8.5-10.5); Carbon Dioxide 21 mmol/L (22-29); Chloride 107 mmol/L (98-107); Globulin 2.8 g/dL (1.3-4.6); Glomerular Filtration Rate 96.6 mL/min (90-130); Glucose 87 mg/dL (65-115); Osmolality Calculated 286 mOsm/kg (285-295); Potassium 3.6 mmol/L (3.5-5.1); Sodium 139 mmol/L (136-145); Total Bilirubin 0.4 mg/dL (0.15-1.2); Total Protein 6.9 g/dL (6.6-8.7)
[2022-04-19 04:47] LABS: Add Urine Microscopic? NO; Charge for UA Resulting for Rev
[2022-04-19 04:56] LABS: Bilirubin Urine Neg (Negative); Blood Urine Neg (Negative); Glucose Urine UA Norm (Normal); Ketones Urine Negative (Negative); Leukocyte Esterase Urine Negative (Negative); Nitrate Urine Negative (Negative); Protein Urine Neg (Negative); Specific Gravity, Urine 1.015 (1.005-1.030); Urine Appearance Clear (CLEAR); Urine Color Yellow (Yellow); Urobilinogen Urine Norm (Negative); pH Urine 7 (5-7)
[2022-04-19 04:57] LABS: Amphetamines Screen Urine Negative (Negative); Barbiturates Screen Urine Negative (Negative); Benzodiazepines Screen Urine Negative (Negative); Cocaine Screen Urine Negative (Negative); Opiate Screen Urine Negative (Negative); PCP Screen Urine Negative (Negative); THC Screen Urine Positive (Negative)
== END 2022-04-19 05:10 | disposition left against medical advice (07) ==
PROVIDERS: Emergency Provider Emergency Medicine; PCP Family Medicine Adult Medicine
DX: R53.1 Weakness (principal); Z53.21 Procedure and treatment not carried out due to patient leaving prior to being seen by health care provider; Z79.82 Long term (current) use of aspirin; Z79.02 Long term (current) use of antithrombotics/antiplatelets; F17.210 Nicotine dependence, cigarettes, uncomplicated; Z86.73 Personal history of transient ischemic attack (TIA), and cerebral infarction without residual deficits; Z95.0 Presence of cardiac pacemaker
CPT/HCPCS: 70450; 71045; 80053; 80306; 81003; 85025; 85610; 93005; 99285

== ENCOUNTER → 2023-01-04 08:21 | Outpatient (BNVA) | payer BC, MEDICAID, SELFPAY | PROVIDERS: PCP Family Medicine Adult Medicine; Visit Provider Family Medicine Adult Medicine | DX: I67.9 Cerebrovascular disease, unspecified (principal); G40.909 Epilepsy, unspecified, not intractable, without status epilepticus; E78.5 Hyperlipidemia, unspecified; I63.9 Cerebral infarction, unspecified; Z95.0 Presence of cardiac pacemaker; G47.33 Obstructive sleep apnea (adult) (pediatric); F17.200 Nicotine dependence, unspecified, uncomplicated; J45.909 Unspecified asthma, uncomplicated; F33.2 Major depressive disorder, recurrent severe without psychotic features; F41.1 Generalized anxiety disorder | CPT/HCPCS: 80053; 80061; 85025 ==

== ENCOUNTER 2023-02-03 10:25 | Emergency (ER) | payer BC, MEDICAID, SELFPAY ==
[2023-02-03 10:44] VITALS: BP 113/79; PULSE 83; RESP 18; TEMP 36.9; O2SAT 98; BMI 34.0
[2023-02-03 12:04] VITALS: BP 114/70; PULSE 60; RESP 17; O2SAT 95
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
--- NOTE | 2023-02-03 12:11 | XR_ITS ---
WS: [id number] Lumbar spine, AP portable and lateral views, 02/03/2023 Clinical Data: pain with injury Comparison: Lumbar spine, 09/21/2020 Findings: No compression fractures or subluxation is seen. No disc space narrowing is seen. The transverse proc esses and SI joints are normal. There are clips in the right upper quadrant from a cholecystectomy. Impression: Negative lumbar spine.
[2023-02-03] MEDS: methocarbamol 750 mg Tablet PO (12:18)
[2023-02-03] MEDS: ketorolac 60 mg/2 mL INJ IM (12:18)
[2023-02-03] MEDS: predniSONE 20 mg Tablet 40 MG PO (12:18)
[2023-02-03 13:09] VITALS: BP 112/66; PULSE 62; RESP 18; O2SAT 95
[2023-02-03 13:12] VITALS: BP 112/66; PULSE 62; RESP 18; O2SAT 95
== END 2023-02-03 13:15 | disposition home or self-care (01) ==
PROVIDERS: Emergency Provider Emergency Medicine; PCP Family Medicine Adult Medicine
DX: S39.012A Strain of muscle, fascia and tendon of lower back, initial encounter (principal); M54.16 Radiculopathy, lumbar region; Z79.02 Long term (current) use of antithrombotics/antiplatelets; Z79.82 Long term (current) use of aspirin; F17.210 Nicotine dependence, cigarettes, uncomplicated; Z86.73 Personal history of transient ischemic attack (TIA), and cerebral infarction without residual deficits; E78.5 Hyperlipidemia, unspecified; Z95.0 Presence of cardiac pacemaker; W01.0XXA Fall on same level from slipping, tripping and stumbling without subsequent striking against object, initial encounter
CPT/HCPCS: 72100; 96372; 99284; J1885; J7512

== ENCOUNTER 2023-05-04 11:48 | Emergency (ER) | payer BC, MEDICAID, SELFPAY ==
[2023-05-04 11:52] VITALS: BP 122/75; PULSE 89; RESP 17; TEMP 36.6; O2SAT 98; BMI 37.3
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
[2023-05-04 13:50] VITALS: BP 114/78; PULSE 64; O2SAT 97
== END 2023-05-04 13:51 | disposition home or self-care (01) ==
PROVIDERS: Emergency Provider Internal Medicine; PCP Family Medicine Adult Medicine
DX: L02.411 Cutaneous abscess of right axilla (principal)
CPT/HCPCS: 99283

== ENCOUNTER 2023-09-20 07:32 | Emergency (ER) | payer BC, MEDICAID, SELFPAY ==
[2023-09-20 07:42] VITALS: BP 110/81; PULSE 85; RESP 18; TEMP 36.9; O2SAT 97; BMI 33.0
[2023-09-20 08:04] VITALS: BP 110/81; PULSE 85; RESP 18; O2SAT 97
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
[2023-09-20 08:24] LABS: Rapid Strep A Test Negative (Negative)
[2023-09-20 08:53] VITALS: PULSE 74; RESP 18; O2SAT 96
== END 2023-09-20 08:53 | disposition home or self-care (01) ==
PROVIDERS: Emergency Provider Emergency Medicine; PCP Family Medicine Adult Medicine
DX: J02.9 Acute pharyngitis, unspecified (principal); Z79.02 Long term (current) use of antithrombotics/antiplatelets; Z79.82 Long term (current) use of aspirin; F17.210 Nicotine dependence, cigarettes, uncomplicated; Z86.73 Personal history of transient ischemic attack (TIA), and cerebral infarction without residual deficits; E78.5 Hyperlipidemia, unspecified; Z95.0 Presence of cardiac pacemaker
CPT/HCPCS: 87081; 87880; 99283

== ENCOUNTER 2023-10-29 06:41 | Emergency (ER) | payer BC, MEDICAID, SELFPAY ==
[2023-10-29 06:50] VITALS: BP 107/79; PULSE 76; RESP 17; TEMP 36.6; O2SAT 98; BMI 33.0
--- NOTE | 2023-10-29 07:50 | XRR_ITS ---
PROCEDURE INFORMATION: Exam: XR Chest Exam date and time: 10/29/2023 8:06 AM Age: 38 years old Clinical indication: Cough TECHNIQUE: Imaging protocol: Radiologic exam of the chest. Views: 1 view. COMPARISON: CR XR chest 1V portable [id number] 04/19/2022 4:18 AM FINDINGS: Tubes, catheters and devices: Dual lead pacemaker is seen on the left. Lungs: Unremarkable. No consolidation. Pleural spaces: Unremarkable. No pleural effusion. No pneumothorax. Heart/Mediastinum: The heart is borderline enlarged. Bones/joints: Unremarkable. XR/XR chest 1V portable [id number] IMPRESSION: 1. Borderline cardiomegaly.
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
[2023-10-29] MEDS: famotidine 20 mg/2 mL INJ 40 MG IVP (07:57)
[2023-10-29] MEDS: sodium chloride 0.9% 1,000 ML 999 ML IV (07:58)
[2023-10-29 08:00] VITALS: BP 93/68; PULSE 63; RESP 16; O2SAT 94
[2023-10-29 08:00] LABS: Basophils % 0.4 %; Eosinophils # 0.2 10^3/uL (0.0-0.8); Eosinophils % 1.9 %; Hematocrit 42.4 % (37-53); Lymphocytes # 2.5 10^3/uL (0.8-4.8); Lymphocytes % 24.2 %; Mean Corpuscular HGB Conc 33.5 g/dL (30-55); Mean Corpuscular Hemoglobin 29.7 pg (27-33); Mean Corpuscular Volume 88.7 fl (82-101); Mean Platelet Volume 10.8 fL (7.4-10.4); Monocytes # 0.8 10^3/uL (0.2-0.9); Monocytes % 7.4 %; Neutrophils # 6.77 10^3/uL (1.8-7.7); Neutrophils % 65.7 %; Nucleated Red Blood Cells % 0 %; Platelet Count 243 10^3/cmm (157-399); Red Blood Count 4.78 10^6/uL (3.85-5.65); Red Cell Distribution Width 12.7 % (12.1-15.1)
[2023-10-29 08:10] LABS: Alanine Aminotransferase 15 U/L (0-41); Albumin Level 4.2 g/dL (3.5-5.2); Alkaline Phosphatase 61 U/L (40-130); Anion Gap 17.9 (5-19); Aspartate Amino Transferase 15 U/L (0-40); Blood Urea Nitrogen 12 mg/dL (6-20); Calcium 8.8 mg/dL (8.5-10.5); Carbon Dioxide 22 mmol/L (22-29); Chloride 103 mmol/L (98-107); Creatinine Clr Calc Pharmacy 154.4299; Glomerular Filtration Rate 109.4 mL/min (90-130); Glucose 96 mg/dL (65-115); Lipase 14 U/L (13-60); Osmolality Calculated 288 mOsm/kg (285-295); Potassium 3.9 mmol/L (3.5-5.1); Sodium 139 mmol/L (136-145); Total Bilirubin 0.6 mg/dL (0.15-1.2); Total Protein 7.2 g/dL (6.6-8.7)
[2023-10-29 10:00] VITALS: BP 114/69; PULSE 60; O2SAT 96
[2023-10-29 10:32] VITALS: BP 112/71; PULSE 59; O2SAT 98
== END 2023-10-29 10:33 | disposition home or self-care (01) ==
PROVIDERS: Emergency Provider Emergency Medicine; PCP Family Medicine Adult Medicine
DX: J20.9 Acute bronchitis, unspecified (principal); R11.2 Nausea with vomiting, unspecified; E78.5 Hyperlipidemia, unspecified; J44.9 Chronic obstructive pulmonary disease, unspecified; G40.909 Epilepsy, unspecified, not intractable, without status epilepticus; Z79.899 Other long term (current) drug therapy; Z79.02 Long term (current) use of antithrombotics/antiplatelets; F17.210 Nicotine dependence, cigarettes, uncomplicated; Z86.73 Personal history of transient ischemic attack (TIA), and cerebral infarction without residual deficits; Z95.0 Presence of cardiac pacemaker
CPT/HCPCS: 71045; 80053; 83690; 85025; 96361; 96374; 99284; J3490; J7030

== ENCOUNTER 2023-11-04 16:15 | Emergency (ER) | payer BC, MEDICAID, SELFPAY ==
[2023-11-04 16:13] VITALS: BP 124/64; PULSE 77; RESP 18; TEMP 36.8; O2SAT 98; BMI 32.3
--- NOTE | 2023-11-04 16:26 | ECG_ITS ---
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 Measurements Intervals [place] Rate: 64 P: 66 AR: 145 QRS: 68 QRSD: 90 T: 54 QT: 378 QTc: 393 Interpretive Statements ELECTRONIC ATRIAL PACEMAKER ABNORMAL RHYTHM ECG Compared to ECG 04/19/2022 04:15:45 No significant changes Electronically Signed On 11-05-2023 7:08:29 CDT by Mike Mayberry M.D. [email or web address]
--- NOTE | 2023-11-04 16:31 | XRR_ITS ---
PROCEDURE INFORMATION: Exam: XR Chest Exam date and time: 11/04/2023 4:40 PM Age: 38 years old Clinical indication: Chest pressure; Prior surgery; Surgery date: 6+ months; Patient HX: EMS states PT works at [employer], PT developed chest pain while at work. PT states left side chest pain was sudden, PT states pain travel down left arm and up his neck. PT has pacemaker. EMS gave 1 nitro and 324 aspirin in route. PT rates pain 5/10. TECHNIQUE: Imaging protocol: Radiologic exam of the chest. Views: 1 view. COMPARISON: CR (CHEST, ) 10/29/2023 8:06 AM FINDINGS: Tubes, catheters and devices: Cardiac pacemaker on the left with leads in satisfactory position. Lungs: Unremarkable. No consolidation or mass. Pleural spaces: Unremarkable. No pleural effusion. No pneumothorax. Heart/Mediastinum: Unremarkable. No cardiomegaly. Bones/joints: Unremarkable. XR/XR chest 1V portable [id number] IMPRESSION: No acute findings.
[2023-11-04] MEDS: sodium chloride 0.9% 1,000 ML 999 ML IV (16:46)
[2023-11-04 16:53] LABS: Basophils # 0.1 10^3/uL (0.0-0.1); Basophils % 0.6 %; Eosinophils # 0.2 10^3/uL (0.0-0.8); Hematocrit 44.2 % (37-53); Lymphocytes % 36.5 %; Mean Corpuscular HGB Conc 32.8 g/dL (30-55); Mean Corpuscular Hemoglobin 29.7 pg (27-33); Mean Corpuscular Volume 90.6 fl (82-101); Monocytes # 0.7 10^3/uL (0.2-0.9); Monocytes % 8.4 %; Neutrophils # 4.27 10^3/uL (1.8-7.7); Neutrophils % 52.1 %; Nucleated Red Blood Cells % 0 %; Platelet Count 230 10^3/cmm (157-399); Red Blood Count 4.88 10^6/uL (3.85-5.65); Red Cell Distribution Width 12.7 % (12.1-15.1); White Blood Count 8.19 10^3/uL (3.29-11.43)
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
[2023-11-04 17:14] LABS: Troponin(5th) Baseline < 6 ng/L (0-15)
[2023-11-04 17:22] LABS: Alanine Aminotransferase 23 U/L (0-41); Albumin Level 4.7 g/dL (3.5-5.2); Alkaline Phosphatase 62 U/L (40-130); Aspartate Amino Transferase 18 U/L (0-40); Blood Urea Nitrogen 8 mg/dL (6-20); Calcium 9.8 mg/dL (8.5-10.5); Carbon Dioxide 20 mmol/L (22-29); Chloride 106 mmol/L (98-107); Creatinine Clr Calc Pharmacy 152.7919; Globulin 2.7 g/dL (1.3-4.6); Glomerular Filtration Rate 109.4 mL/min (90-130); Glucose 83 mg/dL (65-115); NT Pro B Type Natriuretic Pept < 36 pg/mL (0-125); Osmolality Calculated 287 mOsm/kg (285-295); Sodium 140 mmol/L (136-145); Total Bilirubin 0.3 mg/dL (0.15-1.2); Total Protein 7.4 g/dL (6.6-8.7)
[2023-11-04 18:18] VITALS: BP 121/64; PULSE 73; O2SAT 96
--- NOTE | 2023-11-04 18:26 | ECG_ITS ---
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 Measurements Intervals [place] Rate: 60 P: 68 CA: 165 QRS: 62 QRSD: 82 T: 58 QT: 398 QTc: 399 Interpretive Statements ELECTRONIC ATRIAL PACEMAKER ABNORMAL RHYTHM ECG Compared to ECG 11/04/2023 16:26:24 No significant changes Electronically Signed On 11-05-2023 7:13:19 CDT by Mike Mayberry M.D. [id number]
[2023-11-04 18:58] LABS: Troponin 5 2HR Delta 0.00001 ABS# (0-10)
[2023-11-04 19:54] LABS: Add Urine Microscopic? YES; Bacteria Urine TRACE /hpf; Bilirubin Urine 1+ (Negative); Blood Urine Neg (Negative); Glucose Urine UA Norm (Normal); Ketones Urine 1+ (Negative); Leukocyte Esterase Urine Trace (Negative); Mucus Urine 2+ /hpf; Nitrate Urine Negative (Negative); Protein Urine 1+ (Negative); RBC Urine 0-4 /hpf (0-2); Squamous Epithelial Cell Urine 0-4 /hpf (0-5); Urine Appearance Clear (CLEAR); Urine Color Yellow (Yellow); Urobilinogen Urine 4 mg/dL (Negative); WBC Urine 0-4 /hpf (0-5); pH Urine 5 (5-7)
[2023-11-04 20:42] VITALS: BP 107/55; PULSE 63; RESP 16; O2SAT 98
== END 2023-11-04 20:43 | disposition home or self-care (01) ==
PROVIDERS: Emergency Provider Emergency Medicine; PCP Family Medicine Adult Medicine
DX: R07.89 Other chest pain (principal); Z79.02 Long term (current) use of antithrombotics/antiplatelets; Z79.82 Long term (current) use of aspirin; Z86.73 Personal history of transient ischemic attack (TIA), and cerebral infarction without residual deficits; Z95.0 Presence of cardiac pacemaker; F17.210 Nicotine dependence, cigarettes, uncomplicated
CPT/HCPCS: 36415; 71045; 80053; 81001; 83880; 84484; 85025; 85610; 85730; 93005; 99285; J7030

== ENCOUNTER 2023-11-05 11:12 | Emergency (ER) | payer BC, MEDICAID, SELFPAY ==
[2023-11-05 11:33] VITALS: BP 134/69; PULSE 80; TEMP 36.7; O2SAT 98
[2023-11-05 11:43] LABS: Glucose Point of Care 102 mg/dL (70-110)
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
[2023-11-05 12:19] LABS: Basophils % 0.5 %; Eosinophils # 0.2 10^3/uL (0.0-0.8); Eosinophils % 2.2 %; Hematocrit 41.2 % (37-53); Lymphocytes # 2.4 10^3/uL (0.8-4.8); Mean Corpuscular HGB Conc 33.3 g/dL (30-55); Mean Corpuscular Hemoglobin 29.8 pg (27-33); Mean Corpuscular Volume 89.8 fl (82-101); Mean Platelet Volume 10.7 fL (7.4-10.4); Monocytes # 0.5 10^3/uL (0.2-0.9); Monocytes % 5.6 %; Neutrophils # 4.94 10^3/uL (1.8-7.7); Neutrophils % 61.5 %; Nucleated Red Blood Cells % 0 %; Platelet Count 216 10^3/cmm (157-399); Red Blood Count 4.59 10^6/uL (3.85-5.65); Red Cell Distribution Width 12.8 % (12.1-15.1); White Blood Count 8.04 10^3/uL (3.29-11.43)
[2023-11-05 12:35] LABS: Lactic Sepsis W/Reflex 1.1 mmol/L (0.5-2.2)
[2023-11-05 12:36] LABS: Alanine Aminotransferase 18 U/L (0-41); Alkaline Phosphatase 58 U/L (40-130); Anion Gap 12.6 (5-19); Aspartate Amino Transferase 12 U/L (0-40); Blood Urea Nitrogen 8 mg/dL (6-20); Calcium 8.5 mg/dL (8.5-10.5); Carbon Dioxide 23 mmol/L (22-29); Chloride 108 mmol/L (98-107); Globulin 2.7 g/dL (1.3-4.6); Glomerular Filtration Rate 109.4 mL/min (90-130); Glucose 73 mg/dL (65-115); Osmolality Calculated 287 mOsm/kg (285-295); Potassium 3.6 mmol/L (3.5-5.1); Sodium 140 mmol/L (136-145); Total Bilirubin 0.2 mg/dL (0.15-1.2); Total Protein 6.7 g/dL (6.6-8.7)
[2023-11-05 12:54] LABS: Ketone (Acetest) Serum Negative (Negative)
[2023-11-05 13:04] LABS: Add Urine Culture? No; Bacteria Urine TRACE /hpf; Bilirubin Urine Neg (Negative); Blood Urine Neg (Negative); Glucose Urine UA Norm (Normal); Ketones Urine 1+ (Negative); Leukocyte Esterase Urine Negative (Negative); Mucus Urine TRACE /hpf; Nitrate Urine Negative (Negative); Protein Urine Neg (Negative); Urine Appearance Clear (CLEAR); Urine Color Yellow (Yellow); Urobilinogen Urine 1 mg/dL (Negative); WBC Urine RARE /hpf (0-5); pH Urine 5 (5-7)
== END 2023-11-05 13:46 | disposition home or self-care (01) ==
PROVIDERS: Emergency Provider Emergency Medicine; PCP Family Medicine Adult Medicine
DX: R42 Dizziness and giddiness (principal); Z79.02 Long term (current) use of antithrombotics/antiplatelets; Z79.82 Long term (current) use of aspirin; F17.210 Nicotine dependence, cigarettes, uncomplicated; Z86.73 Personal history of transient ischemic attack (TIA), and cerebral infarction without residual deficits; E78.5 Hyperlipidemia, unspecified; Z95.0 Presence of cardiac pacemaker
CPT/HCPCS: 36415; 36416; 80053; 81001; 82009; 82962; 83605; 85025; 86140; 99283

== ENCOUNTER 2023-12-23 07:48 | Emergency (ER) | payer BC, MEDICAID, SELFPAY ==
[2023-12-23 08:13] VITALS: BP 115/72; PULSE 64; RESP 18; TEMP 37.1; O2SAT 99; BMI 30.1
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
[2023-12-23 08:35] LABS: Charge for UA Resulting for Rev
[2023-12-23 08:40] LABS: Bilirubin Urine Negative (Negative); Blood Urine Negative (Negative); Glucose Urine UA Negative (Normal); Ketones Urine Trace (Negative); Leukocyte Esterase Urine Negative (Negative); Nitrate Urine Negative (Negative); Protein Urine Negative (Negative); Specific Gravity, Urine 1.026 (1.005-1.030); Urine Appearance Cloudy (CLEAR); Urine Color Yellow (Yellow); pH Urine 5.5 (5-7)
[2023-12-23 08:45] LABS: Bacteria Urine None Seen /hpf; Hyaline Casts Urine 0-4 /lpf; RBC Urine 0-2 /hpf (0-2); Squamous Epithelial Cell Urine 0-5 /hpf (0-5); WBC Urine 0-5 /hpf (0-5)
[2023-12-23 08:45] LABS: Basophils % 0.5 %; Eosinophils # 0.2 10^3/uL (0.0-0.8); Eosinophils % 3.3 %; Hematocrit 40.9 % (37-53); Lymphocytes # 2.1 10^3/uL (0.8-4.8); Mean Corpuscular HGB Conc 34.5 g/dL (30-55); Mean Corpuscular Hemoglobin 29.9 pg (27-33); Mean Corpuscular Volume 86.8 fl (82-101); Mean Platelet Volume 10.1 fL (7.4-10.4); Monocytes # 0.5 10^3/uL (0.2-0.9); Monocytes % 7.4 %; Neutrophils # 4.37 10^3/uL (1.8-7.7); Neutrophils % 59.5 %; Nucleated Red Blood Cells % 0 %; Platelet Count 219 10^3/cmm (157-399); Red Blood Count 4.71 10^6/uL (3.85-5.65); Red Cell Distribution Width 12.4 % (12.1-15.1); White Blood Count 7.34 10^3/uL (3.29-11.43)
--- NOTE | 2023-12-23 08:52 | CTR_ITS ---
PROCEDURE INFORMATION: Exam: CT Abdomen And Pelvis With Contrast Exam date and time: 12/23/2023 9:12 AM Age: 38 years old Clinical indication: Abdominal pain; Localized; Right lower quadrant (rlq); Prior surgery; Surgery date: 6+ months; Surgery type: Gb, pacer; Additional info: Rlq abd pain TECHNIQUE: Imaging protocol: Computed tomography of the abdomen and pelvis with contrast. Radiation optimization: All CT scans at this facility use at least one of these dose optimization techniques: automated exposure control; mA and/or kV adjustment per patient size (includes targeted exams where dose is matched to clinical indication); or iterative reconstruction. Contrast material: OMNIPAQUE 350; Contrast volume: 100 ml; Contrast route: INTRAVENOUS (IV); COMPARISON: CT abdomen pelvis w con* [id number] 04/22/2021 12:12 AM RADIATION DOSE METRICS: Total DLP (mGy-cm): 909.29 FINDINGS: Lungs: There is mild bilateral lower lobe atelectasis. Liver: Normal. No mass. Gallbladder and biliary ducts: The gallbladder is surgically absent. There is no significant biliary ductal dilatation. Pancreas: Normal. No ductal dilation. Spleen: Normal. No splenomegaly. Adrenal glands: Normal. No mass. Kidneys and ureters: There is a simple cyst within the right kidney which measures 1.5 cm compared with 0.6 cm previously. No hydronephrosis. Stomach and bowel: There is [id number] retained fecal material noted within the colon. There is no evidence of bowel obstruction or abnormal bowel wall thickening. Appendix: No evidence of appendicitis. Intraperitoneal space: Unremarkable. No free air. No significant fluid collection. Vasculature: Unremarkable. No abdominal aortic aneurysm. Lymph nodes: Unremarkable. No enlarged lymph nodes. Urinary bladder: Unremarkable as visualized. Reproductive: Unremarkable as visualized. Bones/joints: Unremarkable. No acute fracture. Soft tissues: Unremarkable. CT/CT abdomen pelvis w con* [id number] IMPRESSION: 1. No acute abnormality. 2. Interval enlargement in a right renal cyst since 04/22/2021. This likely reflects interval growth of a benign cyst however correlation with renal ultrasound is suggested to confirm simple nature of the cyst. COMMENTS: Consistent with the [employer]'s Incidental Findings Committee white paper (J Am Franny Radiol 2018): Any incidental renal lesion less than 1 cm or classified as too small to characterize, or any incidental cystic renal lesion characterized as simple-appearing, is likely benign. No follow-up imaging is recommended for these lesions per consensus recommendations based on imaging criteria.
[2023-12-23 09:02] LABS: Alanine Aminotransferase 13 U/L (0-41); Albumin Level 4.3 g/dL (3.5-5.2); Alkaline Phosphatase 54 U/L (40-130); Anion Gap 17.1 (5-19); Aspartate Amino Transferase 12 U/L (0-40); Blood Urea Nitrogen 12 mg/dL (6-20); Calcium 8.9 mg/dL (8.5-10.5); Carbon Dioxide 22 mmol/L (22-29); Chloride 105 mmol/L (98-107); Creatinine Clr Calc Pharmacy 147.8779; Glomerular Filtration Rate 109.4 mL/min (90-130); Glucose 92 mg/dL (65-115); Lipase 14 U/L (13-60); Osmolality Calculated 289 mOsm/kg (285-295); Potassium 4.1 mmol/L (3.5-5.1); Sodium 140 mmol/L (136-145); Total Bilirubin 0.3 mg/dL (0.15-1.2); Total Protein 7.3 g/dL (6.6-8.7)
[2023-12-23] MEDS: sodium chloride 0.9% 1,000 ML 999 ML IV (09:04)
[2023-12-23] MEDS: ondansetron 2 mg/ML SDV 2 mL 4 MG IVP (09:04)
[2023-12-23] MEDS: iohexol 350 mg/mL 500 mL Btl (per mL) IV (09:15)
[2023-12-23 10:16] VITALS: BP 116/74; PULSE 60; O2SAT 97
== END 2023-12-23 10:17 | disposition home or self-care (01) ==
PROVIDERS: Emergency Provider Family Medicine; PCP Family Medicine Adult Medicine
DX: N28.1 Cyst of kidney, acquired (principal); Z79.02 Long term (current) use of antithrombotics/antiplatelets; Z79.82 Long term (current) use of aspirin; F17.210 Nicotine dependence, cigarettes, uncomplicated; Z86.73 Personal history of transient ischemic attack (TIA), and cerebral infarction without residual deficits; E78.5 Hyperlipidemia, unspecified; Z95.0 Presence of cardiac pacemaker
CPT/HCPCS: 36415; 74177; 80053; 81003; 81015; 83690; 85025; 96361; 96374; 99285; J2405; J7030

== ENCOUNTER 2024-01-06 08:17 | Inpatient (IN) | payer BC, MEDICAID, SELFPAY ==
[2024-01-06] VITALS (94 sets, daily range): BP systolic 102–148; BP diastolic 59–87; PULSE 60–87; RESP 0–22; TEMP 36.3–36.9; O2SAT 93–100; BMI 32.4; BMI 31.3
--- NOTE | 2024-01-06 08:27 | CTR_ITS ---
PROCEDURE INFORMATION: Exam: CT Head Without Contrast Exam date and time: 01/06/2024 8:29 AM Age: 38 years old Clinical indication: Stroke-like symptoms; Other: Left sided weakness; Additional info: Symptoms of acute stroke TECHNIQUE: Imaging protocol: Computed tomography of the head without contrast. Radiation optimization: All CT scans at this facility use at least one of these dose optimization techniques: automated exposure control; mA and/or kV adjustment per patient size (includes targeted exams where dose is matched to clinical indication); or iterative reconstruction. Other technique: STROKE PROTOCOL was implemented. COMPARISON: CT head wo con* [id number] 04/19/2022 4:22 AM RADIATION DOSE METRICS: Total DLP (mGy-cm): 1087.48 FINDINGS: Brain: Normal. No hemorrhage. Unremarkable white matter. No mass effect. Cerebral ventricles: No ventriculomegaly. Paranasal sinuses: Visualized sinuses are unremarkable. No fluid levels. Mastoid air cells: Visualized mastoid air cells are well aerated. Bones: Unremarkable. No acute fracture. Soft tissues: Unremarkable. CT/CT head thrombolytic [id number] IMPRESSION: No acute intracranial abnormality. ASSESSMENT: ASPECTS ([place] Stroke Program Early CT Score) is 10.
--- NOTE | 2024-01-06 08:27 | ECG_ITS ---
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 Measurements Intervals [place] Rate: 60 P: 88 DC: 165 QRS: 81 QRSD: 79 T: 77 QT: 417 QTc: 417 Interpretive Statements ELECTRONIC ATRIAL PACEMAKER ABNORMAL RHYTHM ECG Compared to ECG 11/04/2023 18:40:31 No significant changes Electronically Signed On 01-06-2024 20:03:43 CDT by Cheri Cardenas M.D. [email or web address]
--- NOTE | 2024-01-06 08:27 | CTR_ITS ---
PROCEDURE INFORMATION: Exam: CTA Head With Contrast, Arteriography Exam date and time: 01/06/2024 8:36 AM Age: 38 years old Clinical indication: Weakness; Prior surgery; Surgery date: 6+ months; Surgery type: Pacer; Additional info: Nih>6 TECHNIQUE: Imaging protocol: Computed tomographic angiography of the head with contrast. Exam focused on the arteries. 3D rendering (Not supervised by radiologist): MIP and/or 3D reconstructed images were created by the technologist. Radiation optimization: All CT scans at this facility use at least one of these dose optimization techniques: automated exposure control; mA and/or kV adjustment per patient size (includes targeted exams where dose is matched to clinical indication); or iterative reconstruction. Contrast material: OMNI 350; Contrast volume: 100 ml; Contrast route: INTRAVENOUS (IV); COMPARISON: CT angio headneck* [id number] 03/01/2022 9:11 PM RADIATION DOSE METRICS: Total DLP (mGy-cm): 582.26 FINDINGS: ANTERIOR CIRCULATION: Right internal carotid artery: Intracranial segment is patent with no significant stenosis. No aneurysm. Right middle cerebral artery: No occlusion or significant stenosis. No aneurysm. Right anterior cerebral artery: No occlusion or significant stenosis. No aneurysm. Left internal carotid artery: Intracranial segment is patent with no significant stenosis. No aneurysm. Left middle cerebral artery: No occlusion or significant stenosis. No aneurysm. Left anterior cerebral artery: No occlusion or significant stenosis. No aneurysm. POSTERIOR CIRCULATION: Right vertebral artery: No occlusion or significant stenosis. No aneurysm. Left vertebral artery: No occlusion or significant stenosis. No aneurysm. Basilar artery: No occlusion or significant stenosis. No aneurysm. Right posterior cerebral artery: No occlusion or significant stenosis. No aneurysm. Left posterior cerebral artery: No occlusion or significant stenosis. No aneurysm. Brain: No definite mass, mass effect, or midline shift. Cerebral ventricles: No ventriculomegaly. Bones/joints: Unremarkable. No acute fracture. Soft tissues: Unremarkable. PROCEDURE INFORMATION: Exam: CTA Neck With Contrast Exam date and time: 01/06/2024 8:36 AM Age: 38 years old Clinical indication: Weakness; Prior surgery; Surgery date: 6+ months; Surgery type: Pacer; Additional info: Nih>6 TECHNIQUE: Imaging protocol: Computed tomographic angiography of the neck with contrast. Exam focused on the cervical segments of the vasculature. 3D rendering (Not supervised by radiologist): MIP and/or 3D reconstructed images were created by the technologist. Radiation optimization: All CT scans at this facility use at least one of these dose optimization techniques: automated exposure control; mA and/or kV adjustment per patient size (includes targeted exams where dose is matched to clinical indication); or iterative reconstruction. Contrast material: OMNI 350; Contrast volume: 100 ml; Contrast route: INTRAVENOUS (IV); COMPARISON: CT angio headneck* [id number] 03/01/2022 9:11 PM RADIATION DOSE METRICS: Total DLP (mGy-cm): 582.26 FINDINGS: Right common carotid artery: No stenosis. No dissection or occlusion. Right internal carotid artery: No stenosis of the extracranial segment. No dissection or occlusion. Right external carotid artery: No occlusion or stenosis of the origin. Left common carotid artery: No stenosis. No dissection or occlusion. Left internal carotid artery: No stenosis of the extracranial segment. No dissection or occlusion. Left external carotid artery: No occlusion or stenosis of the origin. Right vertebral artery: No stenosis. No dissection or occlusion. Left vertebral artery: No stenosis. No dissection or occlusion. Soft tissues: Normal. No significant soft tissue swelling. Bones/joints: No acute fracture. CT/CT angio headne* [id number] IMPRESSION: No large vessel stenosis or occlusion. IMPRESSION: No stenosis or occlusion. REFERENCES: NASCET CRITERIA. The degree of stenosis in the cervical segment of the internal carotid artery is based on NASCET criteria. Normal is no stenosis. Mild is less than 50% stenosis. Moderate is 50-69% stenosis. Severe is 70% to 99% stenosis. Total occlusion is no detectable patent lumen.
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
[2024-01-06] MEDS: iohexol 350 mg/mL 500 mL Btl (per mL) IV (08:42)
[2024-01-06 08:46] LABS: Basophils % 0.5 %; Eosinophils # 0.3 10^3/uL (0.0-0.8); Eosinophils % 3.3 %; Hematocrit 40.8 % (37-53); Lymphocytes # 2.4 10^3/uL (0.8-4.8); Lymphocytes % 30.9 %; Mean Corpuscular HGB Conc 33.1 g/dL (30-55); Mean Corpuscular Hemoglobin 29.2 pg (27-33); Mean Corpuscular Volume 88.1 fl (82-101); Mean Platelet Volume 10.5 fL (7.4-10.4); Monocytes # 0.7 10^3/uL (0.2-0.9); Monocytes % 9.4 %; Neutrophils # 4.38 10^3/uL (1.8-7.7); Neutrophils % 55.6 %; Nucleated Red Blood Cells % 0 %; Platelet Count 238 10^3/cmm (157-399); Red Blood Count 4.63 10^6/uL (3.85-5.65); Red Cell Distribution Width 12.4 % (12.1-15.1); White Blood Count 7.87 10^3/uL (3.29-11.43)
[2024-01-06 08:50] LABS: Glucose Point of Care 100 mg/dL (70-110)
[2024-01-06 08:59] LABS: INR 0.98 (0.8-1.2)
[2024-01-06 09:00] LABS: Partial Thromboplastin Time 28.1 SECONDS (23.9-36.7)
[2024-01-06 09:04] LABS: Alanine Aminotransferase 20 U/L (0-41); Albumin Level 4.3 g/dL (3.5-5.2); Alkaline Phosphatase 53 U/L (40-130); Anion Gap 16.1 (5-19); Aspartate Amino Transferase 18 U/L (0-40); Blood Urea Nitrogen 13 mg/dL (6-20); Calcium 9.2 mg/dL (8.5-10.5); Carbon Dioxide 25 mmol/L (22-29); Chloride 105 mmol/L (98-107); Creatinine Clr Calc Pharmacy 122.4958; Glomerular Filtration Rate 84.5 mL/min (90-130); Glucose 96 mg/dL (65-115); Osmolality Calculated 294 mOsm/kg (285-295); Potassium 4.1 mmol/L (3.5-5.1); Sodium 142 mmol/L (136-145); Total Bilirubin 0.3 mg/dL (0.15-1.2); Total Protein 7.3 g/dL (6.6-8.7)
--- NOTE | 2024-01-06 09:25 | PC.NURSE ---
THIS NURSE AT BEDSIDE FOR [facility] NEUROLOGIST EVALUATION. THIS NURSE AND DR WILSON NOTIFIED BY [facility] NEUROLOGIST TO ADMINISTER CLOT BUSTER MEDICATION. THIS NURSE QUESTIONED ABOUT PT BEING ON PLAVIX AND IF PT WAS A CANDIDATE FOR MEDICATION. THIS NURSE WAS INFORMED BY DR WILSON THAT PLAVIX IS NOT A CONTRAINDICATION FOR THE MEDICATION.
[2024-01-06] MEDS: tenecteplase 50mg Kit (STROKE) 25 MG IVP (09:31)
--- NOTE | 2024-01-06 09:40 | PC.NURSE ---
PT ASSED BY THIS NURSE AFTER ADMINISTERING TENECTEPLASE. PT STILL HAS LEFT SIDED FACIAL DROOP WHEN ASKED TO SMILE. PT HAS SOME MOVEMENT IN LEFT ARM AND LEG WHEN ASKED TO LIFT THEM UP. PT STATES I JUST FEEL DROWSY. NOTIFIED.
--- NOTE | 2024-01-06 09:59 | PC.NURSE ---
THIS NURSE WENT INTO PT ROOM TO ASSESS NEUROLOGICAL STATUS. THIS NURSE JOKED WITH PT ABOUT REPEATEDLY DOING THE SAME STROKE ASSESSMENT ON HIM TO SEE IMPROVEMENT. PT SMILED WITH NO LEFT SIDED FACIAL DROOP. WHEN THIS NURSE CONTINUED HER STROKE ASSESSMENT, PT WAS ASKED TO SMILE BIG AND TO SHOW HIS TEETH. WHEN PT WAS ASKED TO DO THIS, PT WAS ABLE TO SMILE WITH HIS RIGHT SIDE. PT LEFT ARM AND LEG STILL SHOWED SIGNS OF SMALL AMOUNTS OF MOVEMENT BUT PT WAS UNABLE TO LEFT THEM OFF THE BED. PT STILL HAS FULL RANGE OF MOTION OF RIGHT ARM AND LEG.
--- NOTE | 2024-01-06 10:31 | PC.NURSE ---
THIS NURSE WENT TO ASSESS PT. PT WAS ABLE TO LIFT LEFT ARM AND LEG OFF OF BED. PT WAS ALSO ABLE TO SMILE FULLY WITH NO LEFT SIDED DROOP.
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
--- NOTE | 2024-01-06 14:50 | CTR_ITS ---
PROCEDURE INFORMATION: Exam: CT Head Without Contrast Exam date and time: 01/06/2024 3:27 PM Age: 38 years old Clinical indication: Other: Stroke, post tnkase, reoccurence of symptoms TECHNIQUE: Imaging protocol: Computed tomography of the head without contrast. Radiation optimization: All CT scans at this facility use at least one of these dose optimization techniques: automated exposure control; mA and/or kV adjustment per patient size (includes targeted exams where dose is matched to clinical indication); or iterative reconstruction. COMPARISON: CT angio headneck* [id number] 01/06/2024 8:36 AM RADIATION DOSE METRICS: Total DLP (mGy-cm): 1088.68 FINDINGS: Brain: No intracranial mass or mass effect. No intracranial hemorrhage is seen. Normal costello-white matter differentiation throughout. No areas of sulcal effacement are noted. Cerebral ventricles: The ventricles and other CSF spaces are symmetric and normal for age. Paranasal sinuses: There is normal aeration of the visualized paranasal sinuses. Mastoid air cells: There is no fluid in the mastoid air cells. Bones: No fracture is seen. Soft tissues: Superficial soft tissues are unremarkable. CT/CT head wo con* [id number] IMPRESSION: 1. No evidence of acute intracranial pathology.
[2024-01-06 15:34] LABS: Thyroid Stimulating Hormone 1.22 uIU/mL (0.27-4.20)
[2024-01-06] MEDS: pantoprazole DR 40 mg Tablet PO (15:40)
[2024-01-06 15:41] LABS: Alcohol Level < 10 mg/dL (0-10)
[2024-01-06 16:06] LABS: Bilirubin Urine Negative (Negative); Blood Urine Negative (Negative); Glucose Urine UA Negative (Normal); Ketones Urine Trace (Negative); Leukocyte Esterase Urine Negative (Negative); Nitrate Urine Negative (Negative); Protein Urine Trace (Negative); Specific Gravity, Urine 1.079 (1.005-1.030); Urine Appearance Clear (CLEAR); Urine Color Dark Yellow (Yellow); pH Urine 7.5 (5-7)
[2024-01-06 16:10] LABS: Add Urine Microscopic? YES; Amphetamines Screen Urine Negative (Negative); Bacteria Urine None Seen /hpf; Barbiturates Screen Urine Negative (Negative); Benzodiazepines Screen Urine Negative (Negative); Cocaine Screen Urine Negative (Negative); Hyaline Casts Urine 0-4 /lpf; Opiate Screen Urine Negative (Negative); PCP Screen Urine Negative (Negative); RBC Urine 0-2 /hpf (0-2); Squamous Epithelial Cell Urine 0-5 /hpf (0-5); THC Screen Urine Positive (Negative); WBC Urine 0-5 /hpf (0-5)
[2024-01-06] MEDS: divalproex ER 500 mg Tablet (24H) 1000 MG PO (18:24)
[2024-01-06] MEDS: atorvastatin 40 mg Tablet 80 MG PO (22:01)
[2024-01-07] VITALS (24 sets, daily range): BP systolic 108–136; BP diastolic 62–84; PULSE 60–84; RESP 0–21; TEMP 36.3–37.2; O2SAT 93–98; BMI 31.6
[2024-01-07 04:34] LABS: Basophils # 0.1 10^3/uL (0.0-0.1); Basophils % 0.8 %; Eosinophils # 0.3 10^3/uL (0.0-0.8); Eosinophils % 4.2 %; Hematocrit 39.9 % (37-53); Lymphocytes # 2.3 10^3/uL (0.8-4.8); Lymphocytes % 31.5 %; Mean Corpuscular HGB Conc 33.1 g/dL (30-55); Mean Corpuscular Hemoglobin 29.7 pg (27-33); Mean Corpuscular Volume 89.9 fl (82-101); Mean Platelet Volume 10.5 fL (7.4-10.4); Monocytes # 0.7 10^3/uL (0.2-0.9); Monocytes % 9.8 %; Neutrophils # 3.96 10^3/uL (1.8-7.7); Neutrophils % 53.4 %; Nucleated Red Blood Cells % 0 %; Platelet Count 212 10^3/cmm (157-399); Red Blood Count 4.44 10^6/uL (3.85-5.65); Red Cell Distribution Width 12.4 % (12.1-15.1); White Blood Count 7.42 10^3/uL (3.29-11.43)
[2024-01-07 04:59] LABS: Estmated Average Glucose 97
[2024-01-07 05:02] LABS: Alanine Aminotransferase 19 U/L (0-41); Alkaline Phosphatase 50 U/L (40-130); Anion Gap 14.3 (5-19); Aspartate Amino Transferase 17 U/L (0-40); Blood Urea Nitrogen 15 mg/dL (6-20); Calcium 8.7 mg/dL (8.5-10.5); Carbon Dioxide 26 mmol/L (22-29); Chloride 107 mmol/L (98-107); Cholesterol 104 mg/dL (0-200); Creatinine Clr Calc Pharmacy 120.4811; Globulin 2.5 g/dL (1.3-4.6); Glomerular Filtration Rate 84.5 mL/min (90-130); Glucose 86 mg/dL (65-115); HDL Cholesterol 20 mg/dL (60-100); LDL Cholesterol Calculated 60 mg/dL (50-129); Magnesium 2.1 mg/dL (1.7-2.3); Osmolality Calculated 296 mOsm/kg (285-295); Phosphorus 4.3 mg/dL (2.5-4.5); Potassium 4.3 mmol/L (3.5-5.1); Sodium 143 mmol/L (136-145); Total Bilirubin 0.4 mg/dL (0.15-1.2); Total Protein 6.5 g/dL (6.6-8.7); Triglycerides 122 mg/dL (0-150)
--- NOTE | 2024-01-07 06:00 | USCV_ITS ---
Adrián Nick Age: 38 Gender: M : 1985 Exam Date: 01/07/2024 07:19 Ordering Phys: Tejas Santos MD Technologist: Raúl Javier Exam Location: [facility] [place] Indication: stroke BP: 137 / 89 HR: 60 Rhythm: Sinus Technical Quality: Adequate MEASUREMENTS (Male / Female) Normal Values 2D ECHO LV Diastolic Diameter PLAX 3.5 cm 4.2 - 5.9 / 3.9 - 5.3 cm IVS Diastolic Thickness 1.1 cm 0.6 - 1.0 / 0.6 - 0.9 cm IVS Systolic Thickness 1.8 cm LVPW Diastolic Thickness 1.3 cm 0.6 - 1.0 / 0.6 - 0.9 cm LVPW Systolic Thickness 2.1 cm LVOT Diameter 2.2 cm LV Ejection Fraction 2D Teich 79.5 % LV Ejection Fraction MOD 4C 71.8 % LV Ejection Fraction MOD 2C 67.6 % LV Ejection Fraction 2C AL 68.1 % LA Diameter 3.9 cm RA Systolic Volume 4C AL 40.9 ml RA Systolic Volume 4C MOD 40.9 ml LA Sys Volume AL 30.7 cm cubed LA Sys Volume Index AL 14.3 cm cubed/m squared Aorta at Sinotubular Diameter 2.4 cm IVC Diameter 1.8 cm M-MODE LA Ao Ratio MM 1.3 AV Cusp Separation MM 2.0 cm DOPPLER AV Peak Velocity 100.0 cm/s LVOT Peak Velocity 87.0 cm/s AV Area Cont Eq vti 3.6 cm squared AV Area Cont Eq pk 3.2 cm squared MV Peak Velocity 99.0 cm/s MV Area PHT 4.9 cm squared Mitral E to A Ratio 1.3 TR Peak Velocity 204.0 cm/s TR Peak Gradient 16.6 mmHg TR Mean Velocity 167.0 cm/s TR Mean Gradient 11.6 mmHg TR Velocity Time Integral 48.9 cm PV Peak Velocity 101.0 cm/s RV Ejection Time 0.3 s FINDINGS Left Ventricle Normal LV size and ejection fraction of 68%.no regional wall motion abnormalities. Mild concentric left-ventricular hypertrophy Right Ventricle Pacemaker wire is noted Right Atrium Pacemaker wire is noted Left Atrium The left atrium is normal in size. Mitral Valve Trace mitral valve regurgitation. Aortic Valve No gross abnormalities noted Tricuspid Valve No gross abnormalities noted Pulmonic Valve Pulmonic valve not well visualized. Pericardium Normal pericardium without effusion. Aorta Normal ascending aorta dimension. IVC Normal inferior vena cava. CONCLUSIONS Normal LV size and ejection fraction of 68%.no regional wall motion abnormalities. Mild concentric left-ventricular hypertrophy. Trace mitral valve regurgitation. There are no intracardiac masses. Pacemaker wire is noted in the right atrium and right ventricle Compared to the study from 03/02/2022, there may not be significant change Dr Cheri Cardenas MD FACC (Electronically Signed) Final Date: 07 January 2024 09:57 S
--- NOTE | 2024-01-07 09:00 | CTR_ITS ---
PROCEDURE INFORMATION: Exam: CT Head Without Contrast Exam date and time: 01/07/2024 8:49 AM Age: 38 years old Clinical indication: Other: Post tnkase TECHNIQUE: Imaging protocol: Computed tomography of the head without contrast. Radiation optimization: All CT scans at this facility use at least one of these dose optimization techniques: automated exposure control; mA and/or kV adjustment per patient size (includes targeted exams where dose is matched to clinical indication); or iterative reconstruction. COMPARISON: CT head wo con* [id number] 01/06/2024 3:27 PM RADIATION DOSE METRICS: Total DLP (mGy-cm): 1102.28 FINDINGS: Brain: Normal. No hemorrhage. Unremarkable white matter. No mass effect. Cerebral ventricles: No ventriculomegaly. Paranasal sinuses: Visualized sinuses are unremarkable. No fluid levels. Mastoid air cells: Visualized mastoid air cells are well aerated. Bones: Unremarkable. No acute fracture. Soft tissues: Unremarkable. CT/CT head wo con* [id number] IMPRESSION: No acute intracranial abnormality.
[2024-01-07] MEDS: pantoprazole DR 40 mg Tablet PO (09:38)
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
[2024-01-07] MEDS: aspirin 81 mg EC Tablet PO (14:16)
[2024-01-07] MEDS: divalproex ER 500 mg Tablet (24H) 1000 MG PO (17:17)
[2024-01-07] MEDS: acetaminophen 325 mg Tablet 650 MG PO (18:38)
[2024-01-07] MEDS: atorvastatin 40 mg Tablet 80 MG PO (21:20)
[2024-01-07] MEDS: morphine 4 mg/mL SDV 1 mL 2 MG IVP (21:24)
--- NOTE | 2024-01-07 21:51 | PC.NURSE ---
2 mg Morphine IVP given by this nurse. Wasted 0.5 ml with Jeanette Walker RN prior to administration. Vial was accidentally discarded in sharps container at [facility], by this nurse, before scanning at administration.
[2024-01-08] VITALS (9 sets, daily range): BP systolic 100–123; BP diastolic 63–75; PULSE 60–73; RESP 15–20; TEMP 36.6–36.9; O2SAT 94–96
[2024-01-08 03:13] LABS: Basophils % 0.5 %; Eosinophils # 0.3 10^3/uL (0.0-0.8); Hematocrit 39.4 % (37-53); Lymphocytes # 2.7 10^3/uL (0.8-4.8); Lymphocytes % 36.2 %; Mean Corpuscular Hemoglobin 29.9 pg (27-33); Mean Corpuscular Volume 87.9 fl (82-101); Mean Platelet Volume 10.6 fL (7.4-10.4); Monocytes # 0.7 10^3/uL (0.2-0.9); Monocytes % 9.9 %; Neutrophils # 3.66 10^3/uL (1.8-7.7); Neutrophils % 49.3 %; Nucleated Red Blood Cells % 0 %; Platelet Count 219 10^3/cmm (157-399); Red Blood Count 4.48 10^6/uL (3.85-5.65); Red Cell Distribution Width 12.2 % (12.1-15.1); White Blood Count 7.45 10^3/uL (3.29-11.43)
[2024-01-08 03:28] LABS: Valproic Acid Level 28.9 ug/mL (50-100)
[2024-01-08 03:32] LABS: Alanine Aminotransferase 17 U/L (0-41); Albumin Level 4.1 g/dL (3.5-5.2); Alkaline Phosphatase 52 U/L (40-130); Anion Gap 16.2 (5-19); Aspartate Amino Transferase 12 U/L (0-40); Blood Urea Nitrogen 14 mg/dL (6-20); Calcium 8.8 mg/dL (8.5-10.5); Carbon Dioxide 24 mmol/L (22-29); Chloride 105 mmol/L (98-107); Creatinine Clr Calc Pharmacy 134.4502; Globulin 2.3 g/dL (1.3-4.6); Glomerular Filtration Rate 95.5 mL/min (90-130); Glucose 80 mg/dL (65-115); Osmolality Calculated 291 mOsm/kg (285-295); Potassium 4.2 mmol/L (3.5-5.1); Sodium 141 mmol/L (136-145); Total Bilirubin 0.4 mg/dL (0.15-1.2); Total Protein 6.4 g/dL (6.6-8.7)
--- NOTE | 2024-01-08 08:17 | USCV_ITS ---
Adrián Nick Age: 38 Gender: M : 1985 Exam Date: 01/08/2024 11:37 Ordering Phys: Jake Sauceda MD Technologist: [place] [facility] [place]ication: cva recurant BP: / HR: Rhythm: Sinus Technical Quality: Good MEASUREMENTS (Male / Female) Normal Values FINDINGS Left Ventricle Right Ventricle Right Atrium Left Atrium Mitral Valve Aortic Valve Tricuspid Valve Pulmonic Valve Pericardium Aorta IVC CONCLUSIONS Limited echocardiogram performed to rule out intracardiac shunting LV systolic function is normal On bubble study, no evidence of interatrial shunting seen. Easton Silveira MD (Electronically Signed) Final Date: 08 January 2024 12:13 S
[2024-01-08] MEDS: aspirin 81 mg EC Tablet PO (09:24)
[2024-01-08] MEDS: pantoprazole DR 40 mg Tablet PO (09:24)
--- NOTE | 2024-01-08 10:17 | PC.CHAP ---
Pastoral Care Encounter/Spiritual Assessment Type of Contact [] Declined lead consultant visit [] Patient/Family/Request visit [] Outpatient visit [] Follow-up visit [] Physician referral [] Code/Alert [x] Routine visit [] Staff referral [] Actively dying [] Patient sleeping [] Family support [] [] Out of room [] Palliative care [] [] Receiving care in room [] Pre-surgical visit [] Trauma [] Long length of stay [] ICU visit [] Other: Relational/Emotional Strength [x] Patient feels connected with others/family/visitors/staff [] Distress [] Loneliness/isolation [] Abandonment Spirituality of Patient [x] Person of Cris [] Attends Taoist of their Cris [x] Believes in Prayer [] Reads Bible or Oriental Orthodox materials [] There are Spiritual issues to be addressed Environment Artist Interventions [x] Prayer [x] Active listening [x] Non-anxious presence [x] Spiritual/emotional support [] Crisis/trauma care [] Spiritual counseling [] Bereavement support [] Provided bereavement packet [] Provided Bible/devotional materials [] Provided toy/stuffed animal, coloring book to patient or family member [] Provided Communion [] Anointing/[place] [] Salvation [x] Completed spiritual assessment [] Other: Impact on Illness or Injury [] Angry [] Fearful [] Anxious [] Often cries [] Exhaustion [] Unable to work [] Unable to attend adventism [] Unable to walk/stand [] Unable to read [] Unable to drive [] Unable to eat/drink [] Unable to sleep [] Unable to be with family [] Patient intubated [] Other: Summary Time spent with patient 5 min
[2024-01-08] MEDS: divalproex ER 500 mg Tablet (24H) 1000 MG PO (17:06)
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
[2024-01-08] MEDS: enoxaparin 40 mg/0.4 mL Syringe SUBCUT (19:31)
[2024-01-08] MEDS: morphine 4 mg/mL SDV 1 mL 2 MG IVP (19:39)
[2024-01-08] MEDS: atorvastatin 40 mg Tablet 80 MG PO (21:03)
[2024-01-09] VITALS: BP 123/75; PULSE 68; RESP 17; TEMP 37; O2SAT 97
[2024-01-09 03:47] LABS: Basophils # 0.1 10^3/uL (0.0-0.1); Basophils % 0.7 %; Eosinophils # 0.3 10^3/uL (0.0-0.8); Eosinophils % 4.4 %; Hematocrit 40.5 % (37-53); Lymphocytes # 2.5 10^3/uL (0.8-4.8); Lymphocytes % 36.4 %; Mean Corpuscular HGB Conc 33.8 g/dL (30-55); Mean Corpuscular Hemoglobin 29.7 pg (27-33); Mean Corpuscular Volume 87.7 fl (82-101); Mean Platelet Volume 10.3 fL (7.4-10.4); Monocytes # 0.5 10^3/uL (0.2-0.9); Monocytes % 7.7 %; Neutrophils # 3.45 10^3/uL (1.8-7.7); Neutrophils % 50.5 %; Nucleated Red Blood Cells % 0 %; Platelet Count 241 10^3/cmm (157-399); Red Blood Count 4.62 10^6/uL (3.85-5.65); Red Cell Distribution Width 12.3 % (12.1-15.1); White Blood Count 6.84 10^3/uL (3.29-11.43)
[2024-01-09 04:00] VITALS: BP 127/83; PULSE 63; RESP 17; TEMP 36.6; O2SAT 95
[2024-01-09 04:16] LABS: Anion Gap 14.2 (5-19); Blood Urea Nitrogen 13 mg/dL (6-20); Calcium 8.8 mg/dL (8.5-10.5); Carbon Dioxide 27 mmol/L (22-29); Chloride 105 mmol/L (98-107); Glomerular Filtration Rate 95.5 mL/min (90-130); Glucose 90 mg/dL (65-115); Homocysteine 9.74 umol/l (0-15); Osmolality Calculated 294 mOsm/kg (285-295); Potassium 4.2 mmol/L (3.5-5.1); Sodium 142 mmol/L (136-145)
[2024-01-09 06:00] VITALS: PULSE 62
[2024-01-09 08:00] VITALS: BP 113/71; PULSE 62; RESP 17; TEMP 36.6; O2SAT 94
[2024-01-09] MEDS: pantoprazole DR 40 mg Tablet PO (08:40)
[2024-01-09] MEDS: aspirin 81 mg EC Tablet PO (08:40)
[2024-01-09 12:15] VITALS: BP 112/70; PULSE 59; RESP 18; TEMP 36.8; O2SAT 93
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
[2024-01-09 13:22] VITALS: BP 112/70; PULSE 59; RESP 18; TEMP 36.8; O2SAT 93
[2024-01-10 16:05] LABS: COMPLEMENT COMPONENT C3C 150 mg/dL (82-185); COMPLEMENT COMPONENT C4C 24 mg/dL (15-53)
[2024-01-10 23:03] LABS: Lupus DRVVT 1:1 Mix CORRECTED (CORRECTED); Lupus DRVVT Confirm POSITIVE (NEGATIVE); PTT-LA-Screen 36 sec (< OR = 40)
[2024-01-11 03:09] LABS: CARDIOLIPIN AB (IGA) 5.9 APL-U/mL; CARDIOLIPIN AB (IGG) <2.0 GPL-U/mL; CARDIOLIPIN AB (IGM) <2.0 MPL-U/mL
[2024-01-11 15:59] LABS: CENTROMERE B ANTIBODY <1.0 NEG AI (<1.0 NEG); JO-1 ANTIBODY <1.0 NEG AI (<1.0 NEG); RNP ANTIBODY <1.0 NEG AI (<1.0 NEG); SCL-70 ANTIBODY <1.0 NEG AI (<1.0 NEG); SJOGREN'S ANTIBODY (SS-A) <1.0 NEG AI (<1.0 NEG); SM ANTIBODY <1.0 NEG AI (<1.0 NEG); SS-B <1.0 NEG AI (<1.0 NEG)
[2024-01-11 22:15] LABS: PROTEIN S, ACTIVITY 95 % normal (70-150)
[2024-01-12 05:24] LABS: PROTEIN C, ACTIVITY 81 % normal (70-180)
== END 2024-01-09 13:23 | disposition home or self-care (01) | DRG 62 ==
LOC: ER 12:03 → ICU 12:26 → MEDSURG 01-07 13:48
PROVIDERS: Admitting Provider Student in an Organized Health Care Education/Training Program; Emergency Provider Emergency Medicine; PCP Family Medicine Adult Medicine; Visit Provider Family Medicine
DX: I63.30 Cerebral infarction due to thrombosis of unspecified cerebral artery (principal); F33.2 Major depressive disorder, recurrent severe without psychotic features; G81.94 Hemiplegia, unspecified affecting left nondominant side; R29.708 NIHSS score 8; Z87.891 Personal history of nicotine dependence; G40.909 Epilepsy, unspecified, not intractable, without status epilepticus; G47.33 Obstructive sleep apnea (adult) (pediatric); E78.5 Hyperlipidemia, unspecified; G43.909 Migraine, unspecified, not intractable, without status migrainosus; I45.9 Conduction disorder, unspecified; I49.5 Sick sinus syndrome; Z95.0 Presence of cardiac pacemaker; Z79.82 Long term (current) use of aspirin; Z79.02 Long term (current) use of antithrombotics/antiplatelets; Z82.3 Family history of stroke
CPT/HCPCS: 36415; 36416; 70450; 70496; 70498; 80048; 80053; 80061; 80164; 80306; 80307; 81001; 81241; 82962; 83036; 83090; 83735; 84100; 84443; 85025; 85210; 85300; 85303; 85306; 85610; 85613; 85730; 86147; 86160; 86162; 86235; 86255; 86376; 92522; 92523; 92610; 93005; 93306; 94664; 96372; 96374; 96376; 97116; 97161; 97165; 99285; 99291; C8924; J1650; J2270; J3101

== ENCOUNTER 2024-01-15 15:03 | Outpatient (CLI) | payer BC, MEDICAID, SELFPAY ==
--- NOTE | 2024-01-15 15:30 | US_ITS ---
WS: [id number] RENAL ULTRASOUND HISTORY: renal cyst COMPARISON: CT 12/23/2023 TECHNIQUE: 2-D and color Doppler imaging of the kidney submitted. Right kidney: 10.8 cm x 4.7 cm x 4.8 cm. Cortex: 1.2 cm Cortical cysts posterior mid kidney measures 1.3 x 1.5 cm. No obstruction or solid mass. Left kidney: 10.0 cm x 5.0 cm x 5.7 cm. Cortex: 1.5 cm Normal echogenicity with no hydronephrosis or mass. Aorta: Normal. Urinary Bladder: Normal distention. US/US renal BI* [id number] IMPRESSION: 1. Simple RIGHT renal cyst maximum diameter 1.5 cm. 2. No renal obstruction.
--- NOTE | 2024-01-15 15:47 | US_ITS ---
WS: [id number] ULTRASOUND SOFT TISSUES RIGHT neck. HISTORY: Right neck mass COMPARISON: CT 01/06/2024 TECHNIQUE: 2-D and color Doppler imaging is submitted. Abnormal lymph node corresponds to the palpable abnormality along the RIGHT neck. This lymph node is enlarged very hypoechoic with a displaced fatty hilum. Lymph node measures 1.5 x 1.6 x 1.0 cm. There are a few additional smaller lymph nodes which are also hypoechoic. Note: No enlarged lymph node was noted on the recent CT of 01/06/2024. US/US soft tissue head neck [id number] IMPRESSION: Abnormal RIGHT cervical chain lymph node corresponds to the palpable abnormalit y. This lymph node is enlarged with displacement of the fatty hilum. This may b e a reactive lymph node from an acute inflammatory process or infection or neop lastic.
== END 2024-01-15 15:04 | disposition home or self-care (01) ==
PROVIDERS: PCP Family Medicine Adult Medicine
DX: N28.1 Cyst of kidney, acquired (principal); R59.0 Localized enlarged lymph nodes
CPT/HCPCS: 76536; 76770

== ENCOUNTER → 2024-01-24 11:40 | Outpatient (BNVA) | payer BC, MEDICAID, SELFPAY | PROVIDERS: PCP Family Medicine Adult Medicine | DX: R59.1 Generalized enlarged lymph nodes (principal) | CPT/HCPCS: 80053; 85025 ==

== ENCOUNTER → 2024-02-02 10:38 | Outpatient (BNVA) | payer BC, MEDICAID, SELFPAY | PROVIDERS: PCP Family Medicine Adult Medicine; Visit Provider Surgery | DX: R59.1 Generalized enlarged lymph nodes (principal) | CPT/HCPCS: 36415; 86618; 86666; 86757 ==

== ENCOUNTER 2024-02-06 08:36 | Day surgery (SDC) | payer BC, MEDICAID, SELFPAY ==
--- NOTE | 2024-02-05 12:12 | PM.MISC ---
Miscellaneous Note Purpose of Documentation: results Note: Patient was recently admitted to the hospital for acute CVA, discussed with him that his lupus titer results were positive, and his DRVVT test was also positive, given his history of stroke, he is increased risk of hypercoagulable events, patient has a appointment with rheumatology in April which she should keep, confirmed with him, his appointment, Other Coding Information No focused coding review requested
[2024-02-06] VITALS (10 sets, daily range): BP systolic 109–128; BP diastolic 61–80; PULSE 66–89; RESP 15–24; TEMP 36.4–36.9; O2SAT 90–98; BMI 31.4
--- NOTE | 2024-02-06 08:58 | W.PM.OPSUD ---
Surgery/Procedure H&P Update DATE OF PROCEDURE: February 06, 2024 DATE H&P PERFORMED: 02/02/24 H&P UPDATE INFORMATION: I have reviewed H&P completed within last 30 days, I have examined patient prior to procedure and No changes to prior documentation PLANNED PROCEDURE: Operation Date: 02/06/24 10:25 Proposed Procedures p excision of right anterior cervical lymph node 89271, R59.1(Right) - Robby Damon DO
[2024-02-06] MEDS: sodium chloride 0.9% 1,000 ML 30 ML IV (09:19)
[2024-02-06] MEDS: vancomycin 1,500 MG/300 ML PIGGYBACK 200 MG IV (09:20)
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
--- NOTE | 2024-02-06 10:52 | P.OP_ITS ---
Operative Report Date of procedure: February 06, 2024 Pre-op diagnosis: Anterior cervical lymphadenopathy Post-op diagnosis: same Procedure done: Excision of right anterior lymph node Implants: Rosalie Specimens removed/disposition: Lymph node for lymph node protocol Lymph node for culture Surgeon: Robby Damon DO Anesthesia: General and Local Estimated blood loss (mL): 5 Complications: None apparent Brief History: This is a very pleasant 38-year-old gentleman who presented my office with full right anterior cervical lymphadenopathy. He then developed right axillary lymphadenopathy. He was done in the lymph node did not resolve with antibiotic therapy. Right anterior cervical lymph node excision was indicated. The risks and benefits were explained and documented. Procedure: Patient was wheeled operative room placed on the OR table in the supine posit ion. General endotracheal intubation was achieved by the part of anesthesia. The right anterior neck was inspected prepped and draped in usual sterile fashion. A timeout was performed. All present were in agreement. A 4 cm oblique incision was performed over the area of the largest lymphadenopathy after localizing with 2% lidocaine with epinephrine. Dissection was carried down through the dermis and subcutaneous tissue with electrocautery. A large lymph node that was mostly replaced by fat was encountered. This was carved out with electrocautery. Specimen measuring 3.2 cm in greatest diameter was removed. Part of this was sent for culture of the rest was sent lymph node protocol. Hemostasis was achieved with electrocautery and Rosalie was placed into the wound bed. Dermis was approximated with 3-0 Vicryl in an interrupted fashion. Skin was closed with 4-0 Monocryl in a subcuticular running fashion. Skin was washed and dried. Dermabond was applied. Patient tolerated procedure well.
--- NOTE | 2024-02-06 11:07 | PC.NURSE ---
specimen put in window of pathology along with culture. lab called and notified.
[2024-02-06] MEDS: fentaNYL 50 mcg/mL INJ 2mL IVP (11:21)
--- NOTE | 2024-02-06 11:26 | PC.NURSE ---
tissue culture sent with path per request with the understanding that lab staff would give it to micro
[2024-02-06] MEDS: HYDROcodone-acetaminophen 7.5-325 mg Tablet 1 TAB PO (11:55)
--- NOTE | 2024-02-06 12:40 | ANE.PACU2 ---
Inpatient post-anesthesia follow up: Airway intact: Yes Vital signs: Temperature 97.8 F Pulse Rate 69 Respiratory Rate 18 Blood Pressure 112/77 Pulse Oximetry 94 Oxygen Delivery Me thod Room Air Oxygen Flow Rate 3 Fraction of Inspir ed Oxygen Hydration adequate: Yes Nausea and vomiting: No Pain level: 1 Mental status: Baseline
[2024-02-07 13:17] LABS: Lymphoma Profile (BBPL) See Report
== END 2024-02-06 12:45 | disposition home or self-care (01) ==
PROVIDERS: PCP Family Medicine Adult Medicine; Visit Provider Surgery
PROC: (CPT 38500; principal; 2024-02-06 10:25)
DX: R59.0 Localized enlarged lymph nodes (principal); J45.909 Unspecified asthma, uncomplicated; Z95.0 Presence of cardiac pacemaker; I10 Essential (primary) hypertension; Z86.73 Personal history of transient ischemic attack (TIA), and cerebral infarction without residual deficits; E78.5 Hyperlipidemia, unspecified; G47.33 Obstructive sleep apnea (adult) (pediatric); F41.1 Generalized anxiety disorder
CPT/HCPCS: 38500; 87015; 87070; 87075; 87102; 87116; 87176; 87205; 87206; 87801; 88184; 88185; 88307; 88312; J1100; J2250; J2405; J2704; J3010; J3370; J3490; J7030

== ENCOUNTER → 2024-04-25 10:56 | Outpatient (BNVA) | payer BC, SELFPAY | PROVIDERS: PCP Family Medicine Adult Medicine; Visit Provider Internal Medicine Rheumatology | DX: Z79.899 Other long term (current) drug therapy (principal); R76.8 Other specified abnormal immunological findings in serum | CPT/HCPCS: 36415; 86146; 86147; 86200; 86431 ==

== ENCOUNTER 2024-07-18 09:15 | Outpatient (CLI) | payer SELFPAY ==
[2024-07-18 10:52] LABS: Basophils # 0.1 10^3/uL (0.0-0.1); Basophils % 0.7 %; Eosinophils # 0.2 10^3/uL (0.0-0.8); Eosinophils % 3.4 %; Hematocrit 44.5 % (37-53); Lymphocytes # 2.6 10^3/uL (0.8-4.8); Lymphocytes % 35.9 %; Mean Corpuscular HGB Conc 34.6 g/dL (30-55); Mean Corpuscular Hemoglobin 29.1 pg (27-33); Mean Corpuscular Volume 84.1 fl (82-101); Mean Platelet Volume 10.2 fL (7.4-10.4); Monocytes # 0.5 10^3/uL (0.2-0.9); Monocytes % 7.6 %; Neutrophils % 52.1 %; Nucleated Red Blood Cells % 0 %; Platelet Count 278 10^3/cmm (157-399); Red Blood Count 5.29 10^6/uL (3.85-5.65); Red Cell Distribution Width 12.5 % (12.1-15.1)
[2024-07-18 11:15] LABS: Alanine Aminotransferase 29 U/L (0-41); Albumin Level 4.3 g/dL (3.5-5.2); Alkaline Phosphatase 64 U/L (40-130); Aspartate Amino Transferase 15 U/L (0-40); C Reactive Protein 5.3 mg/L (0.0-4.9); Globulin 3.1 g/dL (1.3-4.6); Total Bilirubin 0.2 mg/dL (0.15-1.2); Total Protein 7.4 g/dL (6.6-8.7)
[2024-07-18 11:20] LABS: Erythrocyte Sedimentation Rate 18 mm/hr (0-10)
== END 2024-07-18 09:16 | disposition home or self-care (01) ==
PROVIDERS: PCP Family Medicine Adult Medicine; Visit Provider Internal Medicine Rheumatology
DX: Z79.899 Other long term (current) drug therapy (principal)
CPT/HCPCS: 36415; 80076; 82565; 85025; 85651; 86140

== ENCOUNTER → 2024-10-15 13:10 | Outpatient (BNVA) | payer SELFPAY | PROVIDERS: PCP Family Medicine Adult Medicine; Visit Provider Nurse Practitioner | DX: F41.1 Generalized anxiety disorder (principal); F33.2 Major depressive disorder, recurrent severe without psychotic features | CPT/HCPCS: 80061; 83036 ==

== ENCOUNTER → 2024-11-14 15:17 | Outpatient (BNVA) | payer BC, SELFPAY ==
[2024-10-16 15:20] VITALS: BP 139/93; BMI 33.5
== END ==
PROVIDERS: PCP Family Medicine Adult Medicine; Visit Provider Internal Medicine Rheumatology
DX: Z79.899 Other long term (current) drug therapy (principal)
CPT/HCPCS: 36415; 80076; 82306; 82565; 85025; 85651; 86140; 86480; 86704; 86803; 87340

== ENCOUNTER 2024-12-11 14:22 | Emergency (ER) | payer BC, MEDICAID, SELFPAY ==
[2024-10-16 15:20] VITALS: BP 139/93; BMI 33.5
--- OUTSIDE RECORDS SUMMARY | 2024-12-11 14:27 | XMS_ITS | Clinical Summary ---
Author Organization 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
--- OUTSIDE RECORDS SUMMARY | 2024-12-11 14:27 | XMS_ITS | Clinical Summary ---
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
[2024-12-11 14:31] VITALS: BP 119/76; PULSE 89; RESP 16; TEMP 36.8; O2SAT 97
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
[2024-12-11 15:14] VITALS: BP 125/75; PULSE 79; RESP 18; O2SAT 99
== END 2024-12-11 15:15 | disposition home or self-care (01) ==
PROVIDERS: Emergency Provider Physician Assistant; PCP Family Medicine Adult Medicine
DX: L03.012 Cellulitis of left finger (principal); Z72.0 Tobacco use; Z95.0 Presence of cardiac pacemaker; E78.5 Hyperlipidemia, unspecified; Z86.73 Personal history of transient ischemic attack (TIA), and cerebral infarction without residual deficits
CPT/HCPCS: 99283

== ENCOUNTER → 2025-03-03 09:52 | Outpatient (BNVA) | payer BC, SELFPAY ==
[2024-10-16 15:20] VITALS: BP 139/93; BMI 33.5
== END ==
DX: Z76.89 Persons encountering health services in other specified circumstances (principal); I63.9 Cerebral infarction, unspecified
CPT/HCPCS: 80053; 80061